=== PATIENT | male | born 1955 | race Caucasian/White ===

== ENCOUNTER 2020-01-20 08:51 | Inpatient (IN) | payer MEDICARE, OTHER, SELFPAY ==
[2020-01-20] VITALS (22 sets, daily range): BP systolic 101–182; BP diastolic 52–96; PULSE 53–96; RESP 18–36; TEMP 36.4–37.6; O2SAT 92–100; BMI 19.3
--- NOTE | 2020-01-20 09:00 | CTR_ITS ---
PROCEDURE INFORMATION: Exam: CT Head Without Contrast Exam date and time: 01/20/2020 9:03 AM Age: 64 years old Clinical indication: Altered mental status/memory loss; Additional info: Symptoms of acute stroke TECHNIQUE: Imaging protocol: Computed tomography of the head without contrast. Radiation optimization: All CT scans at this facility use at least one of these dose optimization techniques: automated exposure control; mA and/or kV adjustment per patient size (includes targeted exams where dose is matched to clinical indication); or iterative reconstruction. COMPARISON: No relevant prior studies available. RADIATION DOSE METRICS: Total DLP (mGy-cm): 2012.8 FINDINGS: Brain: Evaluation is limited by motion artifact. Multifocal small-vessel ischemic change including centrum semiovale, basal ganglia, and thalamic lacunar infarcts. Additional ischemic infarcts in the right occipital and posterior parietal lobes, which can be better characterized with MRI, if clinically indicated. Symmetric caliber of the cortical sulci. Ventricles: Normal configuration of the ventricles. Bones/joints: Old left lamina papyracea fracture. Sinuses: No sinus fluid. Mastoid air cells: No mastoid effusion. Soft tissues: Unremarkable soft tissues. CT/CT head wo con* [id number] IMPRESSION: 1. Evaluation is limited by motion artifact. 2. Multifocal small-vessel ischemic change including centrum semiovale, basal ganglia, and thalamic lacunar infarcts. Additional ischemic infarcts in the right occipital and posterior parietal lobes, which can be better characterized with MRI, if clinically indicated. The aforementioned findings initiated a critical results communication pathway. An addendum will be issued at the time of clincian notification. Radiation Dose CTDIVOL = (mGy): DLP = 2012.8 (mGy-cm)
--- NOTE | 2020-01-20 09:01 | ECG_ITS ---
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 Measurements Intervals [place] Rate: 90 P: 87 WV: 121 QRS: 89 QRSD: 98 T: 89 QT: 357 QTc: 438 Interpretive Statements SINUS RHYTHM POSSIBLE LEFT ATRIAL ENLARGEMENT [-0.1mV P WAVE IN V1/V2] INCOMPLETE RIGHT BUNDLE BRANCH BLOCK [90+ ms QRS DURATION, TERMINAL R IN V1/V2, 40+ ms S IN I/aVL/V4/V5/V6] SEPTAL MYOCARDIAL INFARCTION [40+ ms Q WAVE IN V1/V2], OF INDETERMINATE AGE No previous ECG available for comparison Electronically Signed On 01-20-2020 13:36:19 CDT by Tia Nation M.D. [id number]
--- NOTE | 2020-01-20 09:08 | W.ED.AMS ---
HPI - Altered Mental Status General: Chief Complaint: Altered Mental Status Stated Complaint: AMS Time Seen by Provider: 01/20/20 08:53 History of Present Illness: HPI narrative: Patient arrives via EMS for altered mental status and low O2 saturations. Patient brother states that he checks on the patient every evening and speaks to him every morning. He states that the patient was normal last evening but he did not answer the phone when he called him this morning. He went to the patient's house and found him only semi-responsive in the bed. Patient is awake and alert but does not appear to be oriented. MD complaint: altered mental status, confusion and intoxication (suspected) Timing confirmed by: family member Review of Systems General: Reports: ROS unobtainable due to mental status PFSH ED PFSH: Social History Smoking and tobacco status: current every day smoker Physical Exam Const: EXAM LIMITATIONS: altered mental status GENERAL APPEARANCE: in distress, ill appearing, frail appearing and appears older than stated age NUTRITIONAL APPEARANCE: thin ORIENTATION/CONSCIOUSNESS: Yes awake and Yes confused HENMT: COMMON NORMALS: normocephalic and atraumatic HEAD & SCALP: normal to inspection, normocephalic and atraumatic Eye: GENERAL EYE: appearance normal, both eyes and all related structures Neck/C-Spine: COMMON NORMALS: full ROM, no lymphadenopathy and no meningeal signs GENERAL: Yes normal visual inspection CERVICAL SPINE: Yes cervical ROM normal and Yes normal cervical lordosis Chest: COMMONS NORMALS: normal inspection of the chest and normal palpation of entire chest wall Resp: EFFORT & INSPECTION: Yes tachypneic, Yes respiratory distress, Yes grunting, Yes retractions, Yes uses accessory muscles and Yes audible wheezes AUSCULTATION: rhonchi and wheezes Cardio: COMMON NORMALS: regular rate, regular rhythm, S1 normal heart sound present and S2 normal heart sound present JUGULAR VENOUS DISTENTION: no JVD PALPATION: normal PMI RATE: regular rate RHYTHM: regular rhythm HEART SOUNDS: S1 normal heart sound present and S2 normal heart sound present GI: COMMON NORMALS: Soft to palpation and No hepatosplenomegaly present INSPECTION: Yes normal to inspection PALPATION: Yes Soft to palpation and Yes No hepatosplenomegaly present PERCUSSION: normal to percussion : COMMON NORMALS: Yes no CVA tenderness BLADDER/KIDNEY EXAM: Yes no CVA tenderness Back/Pelvis: COMMON NORMALS: no CVA tenderness, thoracic and lumbar spine normal to inspection and thoraco-lumbar ROM normal Extremity: COMMON NORMALS: normal to inspection, full ROM and capillary refill normal Neuro: MENINGEAL SIGNS: Yes no meningeal signs Skin: COMMON NORMALS: no rashes or lesions noted, no wounds and turgor normal GENERAL SKIN EXAM: no rashes or lesions noted, elasticity normal and turgor normal LESIONS: no lesions RASHES: no rashes TRAUMA: no lacerations or abrasions HAIR: normal NAILS: normal Course Vital Signs: Vital signs: Vital Signs Temperature 97.9 F 01/20/20 08:51 Pulse Rate 96 01/20/20 08:51 Respiratory Rate 36 H 01/20/20 08:51 Blood Pressure 182/96 01/20/20 08:51 Pulse Oximetry 92 01/20/20 08:51 MDM - Altered Mental Status Lab Data: Labs: Lab Results 01/20/20 01/20/20 01/20/20 Range/Units 09:28 09:28 09:28 WBC 8.8 (4.0-10.0) 10^3/ uL RBC 4.87 (4.1-5.3) 10^6/u L Hgb 14.0 (11.7-16.6) g/dL Hct 48.0 (42.0-52.0) % MCV 98.6 H (80-94) fL MCH 28.7 (28.0-34.0) pg MCHC 29.2 L (30.0-36.0) g/dL RDW 14.9 (12.1-15.1) % Plt Count 167 (130-400) 10^3/c mm MPV 10.1 (7.4-10.4) fL Neut % (Auto) 82.5 % Lymph % (Auto) 7.7 % Hudspeth % (Auto) 9.1 % Eos % (Auto) 0.0 % Baso % (Auto) 0.2 % Neut # (Auto) 7.2 (1.8-7.7) 10^3/u L Lymph # (Auto) 0.7 L (0.8-4.8) 10^3/u L Hudspeth # (Auto) 0.8 (0.2-0.9) 10^3/u L Eos # (Auto) 0.0 (0.0-0.8) 10^3/u L Baso # (Auto) 0.0 (0.0-0.1) 10^3/u L Nucleated RBC % (a uto) 0 % Nucleated RBCs # 0.0 /100WBC PT 14.90 H (10.5-13.3) SECO NDS INR 1.13 (0.8-1.2) APTT 31.2 (23.9-36.7) SECO NDS Sodium 138 (136-145) mmol/L Potassium 5.9 H (3.5-5.1) mmol/L Chloride 92 L (98-107) mmol/L Carbon Dioxide 34 H (22-29) mmol/L Anion Gap 17.9 (5-19) BUN 28 H (8-23) mg/dL Creatinine 1.3 H (0.7-1.2) mg/dL GFR Calculation 55.2 L (90-130) mL/min Glucose 125 H (65-115) mg/dL Calculated Osmolal ity 284 L (285-295) mOsm/k g Calcium 9.4 (8.5-10.5) mg/dL Total Bilirubin 1.3 H (0.15-1.2) mg/dL AST 140 H (0-40) U/L ALT 92 H (0-41) U/L Alkaline Phosphata se 73 (40-130) IU/L Ammonia (16-60) umol/L Troponin T Baselin e (0-15) ng/L Total Protein 7.3 (6.6-8.7) g/dL Albumin 4.2 (3.5-5.2) g/dL Globulin 3.1 (1.3-4.6) g/dL Urine Color (Yellow) Urine Appearance (CLEAR) Urine pH (5-7) Ur Specific Gravit y (1.005-1.030) Urine Protein (Negative) Urine Glucose (UA) (Normal) Urine Ketones (Negative) Urine Blood (Negative) Urine Nitrate (Negative) Urine Bilirubin (NEGATIVE) Urine Urobilinogen (Negative) mg/dL Ur Leukocyte Ernestina ase (Negative) Urine RBC (0-2) /hpf Urine WBC (0-5) /hpf Ur Squamous Epith Cells (0-5) Amorphous Sediment Urine Bacteria (NONE) Urine Mucus Salicylates < 0.3 L (3-10) mg/dL Acetaminophen < 5.0 L (10-30) ug/mL Ethyl Alcohol < 10 (0-10) mg/dL 01/20/20 01/20/20 01/20/20 Range/Units 09:28 09:28 10:00 WBC (4.0-10.0) 10^3/ uL RBC (4.1-5.3) 10^6/u L Hgb (11.7-16.6) g/dL Hct (42.0-52.0) % MCV (80-94) fL MCH (28.0-34.0) pg MCHC (30.0-36.0) g/dL RDW (12.1-15.1) % Plt Count (130-400) 10^3/c mm MPV (7.4-10.4) fL Neut % (Auto) % Lymph % (Auto) % Hudspeth % (Auto) % Eos % (Auto) % Baso % (Auto) % Neut # (Auto) (1.8-7.7) 10^3/u L Lymph # (Auto) (0.8-4.8) 10^3/u L Hudspeth # (Auto) (0.2-0.9) 10^3/u L Eos # (Auto) (0.0-0.8) 10^3/u L Baso # (Auto) (0.0-0.1) 10^3/u L Nucleated RBC % (a uto) % Nucleated RBCs # /100WBC PT (10.5-13.3) SECO NDS INR (0.8-1.2) APTT (23.9-36.7) SECO NDS Sodium (136-145) mmol/L Potassium (3.5-5.1) mmol/L Chloride (98-107) mmol/L Carbon Dioxide (22-29) mmol/L Anion Gap (5-19) BUN (8-23) mg/dL Creatinine (0.7-1.2) mg/dL GFR Calculation (90-130) mL/min Glucose (65-115) mg/dL Calculated Osmolal ity (285-295) mOsm/k g Calcium (8.5-10.5) mg/dL Total Bilirubin (0.15-1.2) mg/dL AST (0-40) U/L ALT (0-41) U/L Alkaline Phosphata se (40-130) IU/L Ammonia 15 L (16-60) umol/L Troponin T Baselin e 64 H (0-15) ng/L Total Protein (6.6-8.7) g/dL Albumin (3.5-5.2) g/dL Globulin (1.3-4.6) g/dL Urine Color Dark yellow (Yellow) Urine Appearance Clear (CLEAR) Urine pH 5 (5-7) Ur Specific Gravit y 1.030 (1.005-1.030) Urine Protein 1+ H (Negative) Urine Glucose (UA) Norm (Normal) Urine Ketones Negative (Negative) Urine Blood Neg (Negative) Urine Nitrate Negative (Negative) Urine Bilirubin 1+ H (NEGATIVE) Urine Urobilinogen 4 H (Negative) mg/dL Ur Leukocyte Ernestina ase Negative (Negative) Urine RBC None (0-2) /hpf Urine WBC None (0-5) /hpf Ur Squamous Epith Cells None (0-5) Amorphous Sediment 1+ Urine Bacteria 1+ H (NONE) Urine Mucus Trace Salicylates (3-10) mg/dL Acetaminophen (10-30) ug/mL Ethyl Alcohol (0-10) mg/dL Discharge Plan Discharge Prescriptions: No Action No Known Home Medications RF: 0 Coding Level of Care Code ED System Configuration Specialist for Chg Fwd Exam Comprehensive
[2020-01-20] MEDS: folic acid 1 MG, multivitamin inj 10 ML, thiamine 100 MG in sodium chloride 0.9% 1,000 ML 252.8 MG IV (09:25)
[2020-01-20 09:37] LABS: Basophils % 0.2 %; Lymphocytes # 0.7 10^3/uL (0.8-4.8); Lymphocytes % 7.7 %; Mean Corpuscular HGB Conc 29.2 g/dL (30.0-36.0); Mean Corpuscular Hemoglobin 28.7 pg (28.0-34.0); Mean Corpuscular Volume 98.6 fL (80-94); Mean Platelet Volume 10.1 fL (7.4-10.4); Monocytes # 0.8 10^3/uL (0.2-0.9); Monocytes % 9.1 %; Neutrophils # 7.2 10^3/uL (1.8-7.7); Neutrophils % 82.5 %; Nucleated Red Blood Cells % 0 %; Platelet Count 167 10^3/cmm (130-400); Red Blood Count 4.87 10^6/uL (4.1-5.3); Red Cell Distribution Width 14.9 % (12.1-15.1); White Blood Count 8.8 10^3/uL (4.0-10.0)
[2020-01-20 09:47] LABS: INR 1.13 (0.8-1.2)
[2020-01-20 09:48] LABS: Partial Thromboplastin Time 31.2 SECONDS (23.9-36.7)
[2020-01-20 09:55] LABS: Ammonia 15 umol/L (16-60)
[2020-01-20 09:56] LABS: Acetaminophen < 5.0 ug/mL (10-30); Alanine Aminotransferase 92 U/L (0-41); Albumin Level 4.2 g/dL (3.5-5.2); Alcohol Level < 10 mg/dL (0-10); Alkaline Phosphatase 73 IU/L (40-130); Anion Gap 17.9 (5-19); Aspartate Amino Transferase 140 U/L (0-40); Blood Urea Nitrogen 28 mg/dL (8-23); Calcium 9.4 mg/dL (8.5-10.5); Carbon Dioxide 34 mmol/L (22-29); Chloride 92 mmol/L (98-107); Globulin 3.1 g/dL (1.3-4.6); Glomerular Filtration Rate 55.2 mL/min (90-130); Glucose 125 mg/dL (65-115); Osmolality Calculated 284 mOsm/kg (285-295); Potassium 5.9 mmol/L (3.5-5.1); Salicylate < 0.3 mg/dL (3-10); Sodium 138 mmol/L (136-145); Total Bilirubin 1.3 mg/dL (0.15-1.2); Total Protein 7.3 g/dL (6.6-8.7)
[2020-01-20 09:57] LABS: Troponin(5th) Baseline 64 ng/L (0-15)
[2020-01-20 10:38] LABS: Protein Urine 1+ (Negative); Urine Appearance Clear (CLEAR); Urine Color Dark Yellow (Yellow); pH Urine 5 (5-7)
[2020-01-20 10:39] LABS: Add Urine Microscopic? YES; Bilirubin Urine 1+ (NEGATIVE); Blood Urine Neg (Negative); Glucose Urine UA Norm (Normal); Ketones Urine Negative (Negative); Leukocyte Esterase Urine Negative (Negative); Nitrate Urine Negative (Negative); Urobilinogen Urine 4 mg/dL (Negative)
[2020-01-20 10:43] LABS: Amorphous Sediment Urine 1+; Bacteria Urine 1+; Mucus Urine TRACE
--- NOTE | 2020-01-20 10:52 | PC.NURSE ---
patient was intubated [id number] with 100 succs and 20 of etomidate and 10 of vecronium 23 at the lip 8 [place] tube, patient tolerated well
[2020-01-20] MEDS: succinylcholine 20 mg/mL SDV 10mL 100 MG IVP (10:53)
[2020-01-20] MEDS: vecuronium 10 mg SDV IVP (11:00)
--- NOTE | 2020-01-20 11:01 | ECG_ITS ---
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 Measurements Intervals [place] Rate: 74 P: 87 [place]: 114 QRS: 71 QRSD: 94 T: 87 QT: 388 QTc: 432 Interpretive Statements SINUS RHYTHM WITH SHORT OH INTERVAL POSSIBLE LEFT ATRIAL ENLARGEMENT [-0.1mV P WAVE IN V1/V2] INDETERMINATE AXIS SEPTAL MYOCARDIAL INFARCTION [40+ ms Q WAVE IN V1/V2], OF INDETERMINATE AGE Compared to ECG 01/20/2020 09:49:53 Short OH interval now present Indeterminate axis now present Incomplete right bundle-branch block no longer present Myocardial infarct finding still present Electronically Signed On 01-20-2020 13:43:40 CDT by Tia Nation M.D. [id number]
[2020-01-20 11:03] LABS: ABG PH Result 7.24 (7.35-7.45); Arterial Blood Gas Hematocrit 42.6 % (42-52); Base Excess ABG 5.3 mmol/L (-2.0-2.0); Blood Gas Allen Test Pos; Blood Gas Sample Site Brachial, right; Blood Gas Sample Type Arterial; HCO3 ABG 35.8 mmol/L (22-26); Oxygen Device ROOM AIR; PO2 ABG 24.1 mmHg (80.0-100.0)
[2020-01-20] MEDS: sodium chloride 0.9% 500 ML 999 ML IV (11:15)
[2020-01-20 11:26] LABS: Amphetamines Screen Urine Negative (Negative); Barbiturates Screen Urine Negative (Negative); Benzodiazepines Screen Urine Negative (Negative); Cocaine Screen Urine Negative (Negative); Opiate Screen Urine Negative (Negative); PCP Screen Urine Negative (Negative); THC Screen Urine Negative (Negative)
[2020-01-20 11:28] LABS: Troponin 5 2HR 58.46 ng/L (0-15)
--- NOTE | 2020-01-20 11:33 | PM.HP ---
Providers/Chief Complaint Admitting Physician: Telma Mccord MD Primary Care Provider: Adalid Frost DO Chief Complaint: AMS History of Present Illness Nasir Lepe is a 64 year old male with PMHx of COPD, Chronic smoker; presents by ambulance accompanied by brother for evaluation of noted decreased responsiveness since earlier this morning. Patient is currently intubated so unable to provide history. This is obtained from brother at bedside who states that he speaks with the brother every day, at least twice a day. When he called the patient this morning he received no response so went out to the house to check on him. He found the patient in bed, was very difficult to arouse and when he did awaken he acted quite confused and disoriented. Patient was diaphoretic at the time but no noted secretions or incontinence. Brother then called for an ambulance and at this point in time patient seems to be more awake and seemed to be more alert as well as he try to decline medical attention and reportedly mentioned wanting to drink. Per his brother patient has been abstinent for about 3 years but was a former alcoholic, drinking large amounts of vodka. Patient has not seen a physician in approximately 30 years and is not on any regular medication. He smokes 2 packs/day and keeps to himself for the most part. He is not oxygen dependent and never has been. Has never been to the hospital for COPD related illness, not required intubation in the past or ICU admission. Prior to this morning patient's brother had spoken with him over the phone yesterday and they had dinner together last week Tuesday during which time patient was noted to be fairly unsteady on his feet and actually had a fall when his legs buckled under him. He seemed a little confused yesterday on the phone during the conversation but not overtly so to the point where brother was concerned about him. Reportedly patient was conversant on arrival to the ER though not making much sense and with ABG results showing significant hypercapnia and significant hypoxia decision was made to intubate the patient. He received a paralytic so is currently sedated. He is quite hypertensive with blood pressure being 220/100, he saturating at 100% on an FiO2 of 60%, is afebrile with heart rate being in the sinus rhythm in the 90s. Labs indicate normal CBC with a white count of 8.8, hemoglobin of 14.0, hyperkalemia with a potassium of 5.9, chloride of 92, bicarb of 32, BUN of 28, creatinine of 1.3, blood glucose of 125. ABG is 7.24/80.3/24.1. LFTs are elevated with a T bili of 1.3, AST of 140, ALT of 92, ALP of 73. Ammonia is 15, troponins are noted with a delta of -5, urine drug screen, acetaminophen, salicylates, alcohol are all negative. CT head shows multifocal small vessel ischemic changes involving centrum semiovale, basal ganglia and thalamic lacunar infarcts in addition to ischemic infarcts in the right occipital and posterior parietal lobes. I have requested COVID-19 testing due to patient's respiratory issues. He will require chest x-ray which has not been done yet as well as CT of the abdomen and pelvis given acute renal failure and elevated LFTs. Patient will be admitted to ICU for further management of acute hypoxic and hypercapnic respiratory failure requiring ventilator management. I suspect the patient may have had a stroke which then led to hypoxia and decreased responsiveness. Review of Systems General: Reports: ROS unobtainable due to endotracheal tube (obtained from brother at bedside) and Other Neuro: Reports: difficulty walking, confusion (Intermittent) and other (Fall approximately 1 week ago) Medications/Allergies Home Medications Medication Instructions Recorded Confirmed Last Taken Type No Known Home Medications 01/20/20 01/20/20 Unknown History Allergies Allergy/AdvReac Type Severity Reaction Status Date / Time No Known Allergies Allergy Verified 01/20/20 09:41 PFSH Acute PFSH: Medical History Alcohol abuse Chronic back pain COPD (chronic obstructive pulmonary disease) Smoker Surgical History (Updated 01/20/20 @ 11:59 by Telma Mccord MD) History of back surgery Family History (Updated 01/20/20 @ 12:00 by Telma Mccord MD) Sister Diabetes Denies family history of CAD (coronary artery disease) Cancer Social History (Updated 01/20/20 @ 12:00 by Telma Mccord MD) Smoking and tobacco status: current every day smoker cigarettes Packs smoked per day: 2 Years cigarettes smoked: 30 Alcohol intake: former Former alcohol use details: abstinent x 3 yrs Substance/Drug Use: never Lives independently: Yes Housing: House Marital status: Single Vitals/I&O/Wt Last Vital Signs Temp 97.9 F 01/20/20 08:51 Pulse 96 01/20/20 08:51 Resp 36 H 01/20/20 08:51 BP 182/96 01/20/20 08:51 Pulse Ox 92 01/20/20 08:51 Weight last 48 hrs Weight 54.431 kg Physical Exam Const: COMMON NORMALS: no acute distress GENERAL APPEARANCE: patient mechanically ventilated NUTRITIONAL APPEARANCE: thin ORIENTATION/CONSCIOUSNESS: Yes Other orientation findings (sedated) HENMT: COMMON NORMALS: normocephalic and atraumatic HEAD & SCALP: normocephalic and atraumatic OTHER: -ETT: 23 cm @ lip Eye: COMMON NORMALS: conjunctivae normal CONJUNCTIVA: Yes conjunctivae normal PUPIL: Yes Pinpoint pupils bilaterally Neck/C-Spine: COMMON NORMALS: full ROM GENERAL: Yes normal visual inspection and Yes trachea midline OTHER: -L IV Chest: CHEST: Yes Symmetrical chest wall rise Resp: COMMON NORMALS: No retractions and No use of accessory muscles EFFORT & INSPECTION: Yes symmetric chest movement and No tachypneic AUSCULTATION: diminished lung sounds bilateral OTHER: -coarse breath sounds bilaterally, on vent support (60%/PEEP-8) Cardio: COMMON NORMALS: regular rate, regular rhythm, S1 normal heart sound present, S2 normal heart sound present and No murmurs present (Cardio) RATE: regular rate RHYTHM: regular rhythm HEART SOUNDS: S1 normal heart sound present and S2 normal heart sound present OTHER: -hypertensive GI: INSPECTION: Yes scaphoid AUSCULTATION: Yes normoactive bowel sounds PALPATION: Yes Soft to palpation : BLADDER/KIDNEY EXAM: Yes catheter in place Catheter type (Male): urethral Extremity: COMMON NORMALS: normal to inspection, no clubbing, cyanosis or edema and no pedal edema Neuro: OTHER: -sedated Psych: OTHER: -sedated Skin: COMMON NORMALS: no rashes or lesions noted, no jaundice, no petechiae and no mottling GENERAL SKIN EXAM: no rashes or lesions noted Urinary Catheter Management^: Smith: Cath Placed During This Visit: yes Urethral Indwelling: Yes Reason for Continuing Indwelling Catheter: Accurate Measurement of Urinary Output in Critically Ill Patients Urinary Catheter Date of Insertion: 01/20/20 Urinary Catheter Time of Insertion: 10:58 Sepsis: Is patient septic: No Data : 01/20/20 09:28 01/20/20 09:28 Other Labs: -labs reviewed including CBC, CMP A&P Assessment and plan (1) Acute respiratory failure with hypoxia and hypercapnia: -noted significant hypercapnia and hypoxia on initial ABG, was reportedly conversant on arrival though altered so intubated in ED -received paralytic so no sedation currently -is a chronic smoker, has had emphysema for many years per brother at bedside -ABG (); ETT-23 cm @ lip -daily ABG, CXR while on vent -CXR pending -will start on broad spectrum IV antibiotics (Vanc/Zosyn/Levaquin) -order sputum cx, blood cx -due to symptoms will test for COVID-19; isolation precautions -check bacterial antigens, MRSA, influenza screen Status: Acute (2) Decreased responsiveness: -has had some generalized weakness, some noted confusion per family. Noted multifocal small vessel ischemic changes involving centrum semiovale, basal ganglia and thalamic lacunar infarcts as well as right occipital and posterior parietal lobes -Unable to assess neurological status due to current sedation -Unable to obtain MRI at this time as on vent support -Noted hypertensive urgency -Negative alcohol screen, UDS negative, negative salicylates, acetaminophen Status: Acute (3) Acute kidney failure: -No baseline -Monitor renal function closely, avoid nephrotoxins, renally dose meds -Has Smith catheter in place, monitor urine output, assess daily for removal Status: Acute Qualifiers: Acute renal failure type: unspecified Qualified Code(s): N17.9 - Acute kidney failure, unspecified (4) Hypertensive urgency: -No prior reported history of hypertension; this could be due to acute illness and possibly due to stroke as mentioned above -Close monitoring of vital signs; permissive hypertension x24 hours Status: Acute (5) Smoker: -2 PPD x > 30 yrs Status: Chronic (6) COPD (chronic obstructive pulmonary disease): -acute COPD exacerbation; now on vent support -add steroids to empiric antibiotics -close monitoring of respiratory status Status: Acute Qualifiers: COPD type: COPD with acute exacerbation Qualified Code(s): J44.1 - Chronic obstructive pulmonary disease with (acute) exacerbation (7) Elevated LFTs: -Has reported history of chronic alcohol abuse, reportedly has been abstinent x 3 years, negative alcohol screen, negative urine drug screen -No apparent ascites on examination, will order CT abdomen and pelvis for further evaluation -Trend LFTs, order acute hepatitis panel Status: Acute (8) Chronic back pain: Status: Chronic Qualifiers: Back pain location: low back pain Back pain laterality: unspecified Sciatica presence: unspecified whether sciatica present Qualified Code(s): M54.5 - Low back pain; G89.29 - Other chronic pain Additional A&P Information -at least moderate protein calorie malnutrition: BMI-19 kg/m2 -Chronic EtOH abuse; negative alcohol screen, questionable if recent use though per brother patient has been abstinent x 3 yrs. Banana bag currently been given in ED -GI ppx with PPI -DVT ppx with heparin -Dispo: home -Code status: FULL code -ICU admission due to vent support, need for COVID-19 testing Attestations Medical Necessity Statement*: [facility]'s hospital stay will require greater than 2 midnights for management of acute hypoxic and hypercapnic respiratory failure now on vent support, needs close monitoring of hemodynamic and respiratory status, IV steroids, broad-spectrum IV antibiotics. Time Spent in Patient Care: Greater than 35 minutes (>than 50% of time spent in counselling and/or direct pt care on unit). Critical Care Time: The high probability of a clinically significant, sudden or life threatening deterioration of the patient's [cardiovascular, respiratory] system(s) required my full and direct attention, intervention and personal management. The critical care time is as shown. This time is in addition to time spent performing any reported procedures but includes the following: [x] Data and vital sign review and interpretation [x] Patient assessment, examination and intervention [x] Documentation [x] Medication orders and management Critical Care Time (min): 25 Coding Level of Care Code Acute Associate Vice President for g Fwd Diagnoses Acute respiratory failure with hypoxia and hypercapnia J96.01; J96.02 Decreased responsiveness R41.89 Acute kidney failure N17.9 Acute renal failure type: unspecified Hypertensive urgency I16.0 Smoker F17.200 COPD (chronic obstructive pulmonary disease) J44.1 COPD type: COPD with acute exacerbation Elevated LFTs R79.89 Chronic back pain M54.5; G89.29 Back pain location: low back pain Back pain laterality: unspecified Sciatica presence: unspecified whether sciatica present
[2020-01-20 11:34] LABS: Troponin 5 2HR Delta -5.54 ABS# (0-10)
[2020-01-20] MEDS: levofloxacin-dextrose 5 % 750 MG/150 ML PREMIX 100 MG IV (11:34)
--- NOTE | 2020-01-20 11:45 | XRR_ITS ---
PROCEDURE INFORMATION: Exam: XR Chest, 1 View Exam date and time: 01/20/2020 11:45 AM Age: 64 years old Clinical indication: Device placement; Ett placement (vent status); Additional info: On vent support TECHNIQUE: Imaging protocol: XR of the chest Views: 1 view. COMPARISON: No relevant prior studies available. FINDINGS: Tubes, catheters and devices: Endotracheal and feeding tubes. The endotracheal tube terminates 6.0 cm above the alvaro, while the feeding tube terminates in the proximal stomach. Lungs: COPD and chronic granulomatous disease. Pleural space: Pleural thickening, calcified plaques, and blunting of the costophrenic angles. Heart/Mediastinum: Normal configuration of the heart. Vasculature: Calcification of the thoracic aorta. Bones/joints: Degenerative change. XR/XR chest 1V portable [id number] IMPRESSION: 1. COPD and chronic granulomatous disease. 2. Endotracheal and feeding tubes. The endotracheal tube terminates 6.0 cm above the alvaro, while the feeding tube terminates in the proximal stomach. 3. Additional findings as described above.
--- NOTE | 2020-01-20 11:52 | CTR_ITS ---
PROCEDURE INFORMATION: Exam: CT Abdomen And Pelvis Without Contrast Exam date and time: 01/20/2020 12:44 PM Age: 64 years old Clinical indication: Abdominal pain; Additional info: Unresponsive, hepatitis, acute renal failure TECHNIQUE: Imaging protocol: Computed tomography of the abdomen and pelvis without contrast. Radiation optimization: All CT scans at this facility use at least one of these dose optimization techniques: automated exposure control; mA and/or kV adjustment per patient size (includes targeted exams where dose is matched to clinical indication); or iterative reconstruction. COMPARISON: No relevant prior studies available. RADIATION DOSE METRICS: Total DLP (mGy-cm): 395.51 FINDINGS: Detailed evaluation of the abdominal and pelvic viscera is somewhat limited in the absence of intravenous contrast. Tubes, catheters and devices: Termination of feeding tube in the proximal stomach. Lungs: COPD, interstitial disease, and chronic granulomatous disease. Bronchial wall thickening. Pleural calcification, suggesting prior asbestos exposure. Liver: Abnormal morphology of the liver, in a pattern suggesting cirrhosis. Detailed evaluation of hepatic parenchymal pathology is limited in the absence of intravenous contrast. Calcified granulomata. Gallbladder and bile ducts: No cholelithiasis or biliary ductal dilatation. Pancreas: No pancreatic mass or ductal dilatation. Spleen: Splenic granulomata. Adrenals: Unremarkable adrenals. Kidneys and ureters: Poorly characterized 8 mm nodular hypodensity in the posterior right kidney. No hydronephrosis. Stomach and bowel: Questionable wall thickening in the nondistended stomach. Prominent stool in the colon and rectum. The dilated stool-filled rectum measures 7.1 cm in transverse dimension. Diverticula. Appendix: Appendix not visualized. Intraperitoneal space: Small quantity of dependent free fluid in the pelvis. Vasculature: Extensive vascular calcification . 2.7 cm infrarenal abdominal aortic aneurysm. Lymph nodes: Subcentimeter lymph nodes. Bladder: Smith catheter and intraluminal air in the bladder. Reproductive: Punctate prostate calcifications. Bones/joints: Osteopenia. Degenerative change and disc bulging. Schmorl's nodes. CT/CT abdomen pelvis wo con [id number] IMPRESSION: 1. Abnormal hepatic morphology, suggesting cirrhosis. 2. Small quantity of dependent free fluid in the pelvis. 3. Prominent stool in the colon and dilated rectum. 4. Additional findings as described above. Radiation Dose CTDIVOL = (mGy): DLP = 395.51 (mGy-cm)
[2020-01-20] MEDS: hyDRALAzine 20 mg/mL INJ 1 mL IVP (11:54)
--- NOTE | 2020-01-20 12:00 | PC.NURSE ---
attempted to call icu
[2020-01-20 12:40] LABS: Hepatitis A Antibody IgM Non-Reactive (Nonreactive); Hepatitis B Core IgM Non-Reactive (Nonreactive); Hepatitis B Surface Antigen Non-Reactive (Nonreactive); Hepatitis C Virus Antibody Non-Reactive (Nonreactive)
[2020-01-20 12:46] LABS: Magnesium 2.2 mg/dL (1.7-2.3)
[2020-01-20 13:25] LABS: Add Urine Culture? No
[2020-01-20 13:47] LABS: ABG PCO2 45.2 mmHg (35-45); ABG PH Result 7.44 (7.35-7.45); Arterial Blood Gas Hematocrit 40.6 % (42-52); Base Excess ABG 5.8 mmol/L (-2.0-2.0); Blood Gas Allen Test Pos; Blood Gas Sample Site Radial, right; Blood Gas Sample Type Arterial; HCO3 ABG 30.8 mmol/L (22-26)
[2020-01-20] MEDS: propofol 1,000 MG/100 ML INJ 10.4 MG (14:25)
[2020-01-20] MEDS: vancomycin 750 MG in sodium chloride 0.9% 250 ML 250 MG IV (14:42)
[2020-01-20] MEDS: pantoprazole 40 mg SDV IVP (14:43)
[2020-01-20] MEDS: heparin 5,000 unit/mL INJ 1 mL 5000 UNIT SUBCUT (14:44)
[2020-01-20 15:03] LABS: Influenza A by IFA Negative (Negative); Influenza B by IFA Negative (Negative)
[2020-01-20] MEDS: sodium chloride 0.9% (100 ml) 100 ML 10 ML (15:23)
[2020-01-20] MEDS: sodium chloride 0.9% 1,000 ML 75 ML IV (16:38)
[2020-01-20 16:45] LABS: Troponin 5 6HR 67.52 ng/L (0-15); Troponin 5 6HR Delta 3.52 ng/L (0-12)
[2020-01-20] MEDS: piperacillin-tazobactam 3.375 GM in sodium chloride 0.9% (plus) 50 ML IV ×2 (16:46→23:48)
--- NOTE | 2020-01-20 20:46 | PC.NURSE ---
Dr Chung notified of elevated BP. He states he will enter prn orders.
[2020-01-20] MEDS: propofol 1,000 MG/100 ML INJ 9.8 MG IV (23:48)
[2020-01-21] VITALS (80 sets, daily range): BP systolic 103–177; BP diastolic 57–116; PULSE 47–108; RESP 8–33; TEMP 36.3–37.2; O2SAT 74–100; BMI 17.8
[2020-01-21] MEDS: vancomycin 750 MG in sodium chloride 0.9% 250 ML 250 MG IV ×2 (02:05→14:43)
[2020-01-21] MEDS: heparin 5,000 unit/mL INJ 1 mL 5000 UNIT SUBCUT ×2 (02:05→13:53)
[2020-01-21] MEDS: propofol 1,000 MG/100 ML INJ 9.8 MG IV ×2 (04:06→09:39)
[2020-01-21 04:08] LABS: Hematocrit 40.5 % (42.0-52.0); Hemoglobin 12.5 g/dL (11.7-16.6); Lymphocytes # 0.7 10^3/uL (0.8-4.8); Lymphocytes % 10.2 %; Mean Corpuscular HGB Conc 30.9 g/dL (30.0-36.0); Mean Corpuscular Hemoglobin 28.6 pg (28.0-34.0); Mean Corpuscular Volume 92.7 fL (80-94); Mean Platelet Volume 10.9 fL (7.4-10.4); Monocytes # 0.4 10^3/uL (0.2-0.9); Monocytes % 5.9 %; Neutrophils # 5.9 10^3/uL (1.8-7.7); Neutrophils % 83.6 %; Nucleated Red Blood Cells % 0 %; Platelet Count 133 10^3/cmm (130-400); Red Blood Count 4.37 10^6/uL (4.1-5.3); White Blood Count 7.1 10^3/uL (4.0-10.0)
[2020-01-21 04:25] LABS: Chol HDL Ratio 4.28 mg/dL (1.0-5.00); Cholesterol 107 mg/dL (0-200); HDL Cholesterol 25 mg/dL (60-100); LDL Cholesterol Calculated 56 mg/dL (50-129); LDL HDL Ratio 2.24 RATIO (0.00-3.22); Triglycerides 129 mg/dL (0-150)
[2020-01-21 04:31] LABS: ABG PCO2 28.9 mmHg (35-45); Arterial Blood Gas Hematocrit 39.3 % (42-52); Blood Gas Sample Site Brachial, right; Blood Gas Sample Type Arterial; HCO3 ABG 27.3 mmol/L (22-26); Oxygen Device VENT
[2020-01-21 04:31] LABS: Alanine Aminotransferase 203 U/L (0-41); Alkaline Phosphatase 53 IU/L (40-130); Aspartate Amino Transferase 243 U/L (0-40); Blood Urea Nitrogen 28 mg/dL (8-23); Calcium 8.2 mg/dL (8.5-10.5); Carbon Dioxide 25 mmol/L (22-29); Chloride 104 mmol/L (98-107); Globulin 2.3 g/dL (1.3-4.6); Glucose 122 mg/dL (65-115); Osmolality Calculated 292 mOsm/kg (285-295); Sodium 142 mmol/L (136-145); Thyroid Stimulating Hormone 0.61 uIU/mL (0.27-4.20); Total Bilirubin 0.8 mg/dL (0.15-1.2); Total Protein 5.3 g/dL (6.6-8.7)
[2020-01-21 04:55] LABS: Estmated Average Glucose 105; Hemoglobin A1C 5.3 % (4.0-6.0)
[2020-01-21] MEDS: sodium chloride 0.9% 1,000 ML 75 ML IV ×2 (05:19→19:08)
[2020-01-21] MEDS: piperacillin-tazobactam 3.375 GM in sodium chloride 0.9% (plus) 50 ML IV ×2 (07:42→18:54)
[2020-01-21] MEDS: pantoprazole 40 mg SDV IVP (09:39)
--- NOTE | 2020-01-21 09:56 | P.PN_ITS ---
Subjective Subjective: Interval history: Remains on vent support though decreased oxygen requirement (FiO2-30%), afebrile, intermittently bradycardic, improved renal function, noted transaminitis with otherwise normal labs including lipid panel, TSH, A1c. Had 600 mL urine output overnight. COVID-19 negative, will d/c isolation precautions. Weaning trial today. On sedation with propofol. Medications: Reviewed: Yes Medication Review Details: Active Medications Generic Name Dose Route Start Last Admin Trade Name Freq PRN Reason Stop Dose Admin Acetaminophen 650 mg 01/20/20 13:35 Tylenol [place] Q6H PRN FEVER Heparin Sodium (Be ef Lung) 5,000 unit 01/20/20 14:00 01/21/20 02:05 Heparin SUBCUT 5,000 unit Q12H JOSELINE Administration Hydralazine HCl 5 mg 01/20/20 20:47 Apresoline IVP Q4H PRN HYPERTENSION Vancomycin HCl 750 mg/ Sodium 250 mls @ 250 mls /hr 01/20/20 14:30 01/21/20 02:05 Chloride IV 250 mls/hr Q12H JOSELINE Administration Protocol Piperacillin Sod/T azobactam 50 mls @ 12.5 mls /hr 01/20/20 16:00 01/21/20 07:42 Sod 3.375 gm/ So dium Chloride IV 12.5 mls/hr Q8H JOSELINE Administration Protocol Levofloxacin/Dextr ose 750 mg in 150 mls @ 100 mls/hr 01/21/20 12:00 Levaquin-D5w IV Q24H JOSELINE Protocol Propofol 1,000 mg in 100 m ls @ 0 mls/hr 01/20/20 13:35 01/21/20 09:39 Diprivan IV 30 mcg/kg/min .Q0M JOSELINE 9.8 mls/hr Administration Protocol Per Protocol Sodium Chloride 1,000 mls @ 75 ml s/hr 01/20/20 15:30 01/21/20 05:19 Sodium Chloride 0.9% IV 75 mls/hr .[id number] JOSELINE Administration Ondansetron HCl 4 mg 01/20/20 13:35 Zofran IVP Q6H PRN NAUSEA AND VOMITI NG Pantoprazole Sodiu m 40 mg 01/20/20 13:35 01/21/20 09:39 Protonix IVP 40 mg DAILY JOSELINE Administration No Known Allergies Allergy (Verified 01/20/20 09:41) Vitals/I&O/Wt Last Vital Signs Temp 97.5 F L 01/21/20 08:00 Pulse 55 L 01/21/20 08:00 Resp 12 01/21/20 09:31 BP 129/62 01/21/20 08:00 Pulse Ox 94 01/21/20 08:00 01/20/20 01/21/20 01/21/20 22:59 06:59 14:59 Intake Total 300 / 300 1043.39 / 1343.39 54.39 / 54.39 Output Total 600 / 610 Balance 290 / 290 443.39 / 733.39 54.39 / 54.39 Weight last 48 hrs Weight 49.079 kg Weight 54.431 kg Physical Exam Const: COMMON NORMALS: no acute distress GENERAL APPEARANCE: patient mechanically ventilated NUTRITIONAL APPEARANCE: thin ORIENTATION/CONSCIOUSNESS: Yes Other orientation findings (sedated) HENMT: COMMON NORMALS: normocephalic and atraumatic HEAD & SCALP: normocephalic and atraumatic OTHER: -ETT: 25 cm @ lip Eye: COMMON NORMALS: conjunctivae normal CONJUNCTIVA: Yes conjunctivae normal PUPIL: Yes Pinpoint pupils bilaterally Neck/C-Spine: COMMON NORMALS: full ROM GENERAL: Yes normal visual inspection and Yes trachea midline OTHER: -L IV Chest: CHEST: Yes Symmetrical chest wall rise Resp: COMMON NORMALS: No retractions and No use of accessory muscles EFFORT & INSPECTION: Yes symmetric chest movement and No tachypneic AUSCULTATION: diminished lung sounds bilateral OTHER: -coarse breath sounds bilaterally, on vent support (30%/16/5) Cardio: COMMON NORMALS: regular rate, regular rhythm, S1 normal heart sound present, S2 normal heart sound present and No murmurs present (Cardio) RATE: regular rate RHYTHM: regular rhythm HEART SOUNDS: S1 normal heart sound present and S2 normal heart sound present OTHER: -normotensive GI: COMMON NORMALS: Normal to inspection, nondistended, normoactive bowel sounds present and Soft to palpation INSPECTION: Yes scaphoid AUSCUL TATION: Yes normoactive bowel sounds PALPATION: Yes Soft to palpation : BLADDER/KIDNEY EXAM: Yes catheter in place Extremity: COMMON NORMALS: normal to inspection and no pedal edema NARRATIVE EXTREMITY EXAM: -feet are warmer to touch today, pulses are still diminished though easier to appreciate (doppler) GENERAL: Yes cyanosis (and diminished peripheral pulses (bilateral LEs)), Yes mottling and Yes pulses abnormal Neuro: COMMON NORMALS: moves all extremities, no focal motor deficits, no sensory deficits noted and gait normal OTHER: -sedated Psych: OTHER: -sedated Skin: COMMON NORMALS: no rashes or lesions noted, no jaundice and no petechiae GENERAL SKIN EXAM: no rashes or lesions noted Urinary Catheter Management^: Smith: Cath Placed During This Visit: yes Urethral Indwelling: Yes Reason for Continuing Indwelling Catheter: Accurate Measurement of Urinary Output in Critically Ill Patients Urinary Catheter Date of Insertion: 01/20/20 Urinary Catheter Time of Insertion: 10:58 Data : 01/21/20 03:20 01/21/20 03:20 Micro: Microbiology 01/20/20 13:00 Legionella Urinary Antigen - Final Urine Catheterized 01/20/20 13:00 Bacterial Antigens - Final Urine Kidney 01/20/20 09:35 Blood Culture - Preliminary Blood SPECIMEN COLLECTED 01/20/20 09:28 Blood Culture - Preliminary Blood SPECIMEN COLLECTED 01/20/20 10:58 Gram Stain - Final Sputum - Endotracheal Tube Aspirate A&P Assessment and plan (1) Acute respiratory failure with hypoxia and hypercapnia: -noted significant hypercapnia and hypoxia on initial ABG, was reportedly conversant on arrival though altered so intubated in ED -received paralytic x 2, on sedation with propofol -is a chronic smoker, has had emphysema for many years per brother at bedside -ABG with noted resolved hypercapnia and hypoxia (7.58/28.9/118); ETT-25 cm @ lip -daily ABG, CXR while on vent -CXR-COPD -on broad spectrum IV antibiotics (Vanc/Zosyn/Levaquin) -sputum cx pending, gram stain-GPC -blood cx: pending -due to symptoms, tested for COVID-19, negative; isolation precautions -bacterial antigens, MRSA, influenza screen, Legionella negative -weaning trial today Status: Acute (2) Decreased responsiveness: -has had some generalized weakness, some noted confusion per family. Noted multifocal small vessel ischemic changes involving centrum semiovale, basal ganglia and thalamic lacunar infarcts as well as right occipital and posterior parietal lobes -Unable to assess neurological status due to current sedation -Unable to obtain MRI at this time as on vent support -Noted hypertensive urgency which is now resolved -Negative alcohol screen, UDS negative, negative salicylates, acetaminophen -pending Echo, carotid US -start on ASA -normal lipid panel, A1c, TSH Status: Acute (3) Acute kidney failure: -No baseline -continue to monitor renal function closely, avoid nephrotoxins, renally dose meds -Has Smith catheter in place, monitor urine output, assess daily for removal Status: Acute Qualifiers: Acute renal failure type: unspecified Qualified Code(s): N17.9 - Acute kidney failure, unspecified (4) Hypertensive urgency: -No prior reported history of hypertension; this could be due to acute illness and possibly due to stroke as mentioned above as well as paralytic with no sedation -Close monitoring of vital signs; permissive hypertension x 24 hours -normotensive Status: Resolved (5) Smoker: -2 PPD x > 30 yrs Status: Chronic (6) COPD (chronic obstructive pulmonary disease): -acute COPD exacerbation; now on vent support -on steroids, empiric antibiotics -close monitoring of respiratory status Status: Acute Qualifiers: COPD type: COPD with acute exacerbation Qualified Code(s): J44.1 - Chronic obstructive pulmonary disease with (acute) exacerbation (7) Peripheral vascular disease: -noted diminished peripheral pulses even with doppler, cool to touch and cyanotic toes -risk factors for PVD: smoker, EtOH use -pending venous and arterial studies -start on ASA -normal lipid panel, A1c Status: Suspected (8) Elevated LFTs: -Has reported history of chronic alcohol abuse, reportedly has been abstinent x 3 years, negative alcohol screen, negative urine drug screen -No apparent ascites on examination, noted cirrhosis on CT abdomen and pelvis -Trend LFTs, negative acute hepatitis panel Status: Acute (9) Chronic back pain: Status: Chronic Qualifiers: Back pain laterality: unspecified Back pain location: low back pain Sciatica presence: unspecified whether sciatica present Qualified Code(s): M54.5 - Low back pain; G89.29 - Other chronic pain Additional A&P Information -at least moderate protein calorie malnutrition: BMI-19 kg/m2 -Chronic EtOH abuse; negative alcohol screen, questionable if recent use though per brother patient has been abstinent x 3 yrs. Banana bag given in ED -GI ppx with PPI -DVT ppx with heparin -Dispo: home -Code status: FULL code -ICU care due to vent support Attestations Medical Necessity Statement*: Patient requires hospitalization for continued management of acute hypoxic and hypercapnic respiratory failure, on vent support, broad-spectrum IV antibiotics, IV steroids. Time Spent in Patient Care: 16 - 35 minutes (>than 50% of time spent in counselling and/or direct pt care on unit) . Coding Level of Care Code Acute [employer] [facility] Fwd Exam Comprehensive Diagnoses Acute respiratory failure with hypoxia and hypercapnia J96.01; J96.02 Decreased responsiveness R41.89 Acute kidney failure N17.9 Acute renal failure type: unspecified Hypertensive urgency I16.0 Smoker F17.200 COPD (chronic obstructive pulmonary disease) J44.1 COPD type: COPD with acute exacerbation Peripheral vascular disease I73.9 Elevated LFTs R79.89 Chronic back pain M54.5; G89.29 Back pain laterality: unspecified Back pain location: low back pain Sciatica presence: unspecified whether sciatica present
[2020-01-21 10:16] LABS: ABG PH Result 7.58 (7.35-7.45)
[2020-01-21 10:17] LABS: Oxygen Device vent
[2020-01-21] MEDS: aspirin 325 mg Tablet OG-TUBE (11:27)
[2020-01-21] MEDS: levofloxacin-dextrose 5 % 750 MG/150 ML PREMIX 100 MG IV (11:27)
--- NOTE | 2020-01-21 11:51 | PC.RESP ---
Smoking Cessation are Pulmonary Rehab information with a schedule of classes.
[2020-01-21 14:39] LABS: Vancomycin Trough 11.3 ug/mL (10-15)
--- NOTE | 2020-01-21 18:34 | PC.NURSE ---
propofol off at 1315.pt slowly awakened and pt extubated at 1620 by [address].placed on 5 l o2 per nc.pt is confused and speech is garbled.pulling at tubes and trying to remove gown.will occas grasp hands when requested (weak).appears to lean body to the left.no obvious facial droop noted.strong cough noted.remains npo.
--- NOTE | 2020-01-21 19:50 | PC.NURSE ---
received patient from ASHISH Peoples. patient noted to be slightly confused and agitated. patient able to be reoriented at this time and kept calm and in bed for safety measures. 1:1 sitter at bedside per order by . PRN ativan placed by for agitation. verbal order to try to reorient patient before medication given. all vital signs stable at this time. will continue to monitor patient.
--- NOTE | 2020-01-21 22:36 | PC.NURSE ---
decrease in patient oxygenation patient attempting to cough up secretions. patient having much trouble being able to cough up all secretions. nurse suctioned patient with yanker and got thick white sputum out. patient continuing to cough, oxygen saturation dropping to 84% and face becoming bright red. currently on 5L NC. patient seems to have an increase in work of breathing from beginning of shift. Respiratory called to bedside to assess patient. called and updated on patient condition.
--- NOTE | 2020-01-21 22:52 | XRR_ITS ---
PROCEDURE INFORMATION: Exam: XR Chest, 1 View Exam date and time: 01/21/2020 11:08 PM Age: 64 years old Clinical indication: Shortness of breath; Patient HX: AMS SOB TECHNIQUE: Imaging protocol: XR of the chest Views: 1 view. COMPARISON: CR (CHEST, ) 01/20/2020 11:55 AM FINDINGS: Lungs: Patchy interstitial and alveolar airspace disease right mid lung and right upper lobe. Question mild scarring left upper lobe. Pleural space: Subpulmonic effusions left greater than right. Heart/Mediastinum: The cardiac silhouette appears enlarged, some of which is magnification related to the AP projection. Bones/joints: Unremarkable. XR/XR chest 1V portable [id number] IMPRESSION: Patchy interstitial and alveolar airspace disease right mid lung and right upper lobe. Question mild scarring left upper lobe. Subpulmonic effusions left greater than right. Mild vascular congestion/edema suggested.
[2020-01-21] MEDS: FUROsemide 10 mg/mL SDV 2mL 20 MG IVP (22:57)
--- NOTE | 2020-01-21 23:09 | PC.NURSE ---
at bedside. patient placed on bipap by respiratory. Stat chest xray ordered. 20mg IV lasix once given per verbal order by . verbal order for ABG 30 min after bipap placement. vital signs stable. will continue to monitor.
[2020-01-21] MEDS: LORazepam 2 mg/mL INJ 1 mL 1 MG IVP (23:14)
--- NOTE | 2020-01-21 23:15 | PC.NURSE ---
patient attempting to pull off mask. when redirecting patient, patient espitia swatting at nurses and getting very upset. PRN ativan given at this time for patient comfort and safety.
--- NOTE | 2020-01-21 23:21 | PM.EVENT ---
Event Note Event Note: I was called at the bedside to evaluate for agitation Patient was extubated today, he is not able to spit out his phlegm, he has weak gag and cough reflex, stroke is a suspicion for his altered mental status on admission Bilateral breath sounds with crackles, mild expiratory wheezing Tachypnea 18-20 Sinus tachycardia Patient looks dry clinic Plan Fluids running at the bedside, with crackles and mild vascular congestion on chest x-ray I will give him Lasix 20 mg IV put him on BiPAP to decrease his respiratory distress Discontinue fluid
[2020-01-21 23:47] LABS: ABG PCO2 84.7 mmHg (35-45); ABG PH Result 7.18 (7.35-7.45); HCO3 ABG 31.3 mmol/L (22-26); PO2 ABG 96.6 mmHg (80.0-100.0)
[2020-01-21 23:48] LABS: Base Excess ABG 0.4 mmol/L (-2.0-2.0); Blood Gas Allen Test POS; Blood Gas Operator Identificat JB; Oxygen Device BIPAP
[2020-01-21 23:49] LABS: Arterial Blood Gas Hematocrit 40.9 % (42-52); BIPAP 18/8; Blood Gas Drawn By BISJE; Blood Gas Sample Site RIGHT RADIAL; Blood Gas Sample Type ARTERIAL
[2020-01-22] VITALS (101 sets, daily range): BP systolic 95–156; BP diastolic 49–89; PULSE 51–90; RESP 12–19; TEMP 36.4–37.2; O2SAT 89–100
[2020-01-22] MEDS: piperacillin-tazobactam 3.375 GM in sodium chloride 0.9% (plus) 50 ML IV ×3 (00:42→15:31)
[2020-01-22 01:00] LABS: ABG PCO2 89.2 mmHg (35-45); ABG PH Result 7.17 (7.35-7.45); Base Excess ABG 1.5 mmol/L (-2.0-2.0); Blood Gas Allen Test POS; Blood Gas Operator Identificat JB; HCO3 ABG 41.5 mmol/L (22-26); PO2 ABG 93.6 mmHg (80.0-100.0)
[2020-01-22 01:01] LABS: Blood Gas Drawn By BISJE; Blood Gas Sample Site RIGHT RADIAL; Blood Gas Sample Type ARTERIAL; Oxygen Device BIPAP
[2020-01-22 01:02] LABS: Arterial Blood Gas Hematocrit 41.5 % (42-52)
--- NOTE | 2020-01-22 01:40 | XRR_ITS ---
PROCEDURE INFORMATION: Exam: XR Chest, 1 View Exam date and time: 01/22/2020 2:08 AM Age: 64 years old Clinical indication: Device placement; Ett placement (vent status); Additional info: Et tube placement/og TECHNIQUE: Imaging protocol: XR of the chest Views: 1 view. COMPARISON: CR XR chest 1V portable [id number] 01/21/2020 10:57 PM FINDINGS: Tubes, catheters and devices: The endotracheal tube is above the level of the alvaro. Nasogastric tube overlies the body of the stomach Lungs: Mild airspace consolidation left lower lobe. Subpulmonic effusions left greater than right. Pleural space: See Lungs finding. Heart/Mediastinum: Unremarkable. No cardiomegaly. Bones/joints: Unremarkable. XR/XR chest 1V portable [id number] IMPRESSION: Mild airspace consolidation left lower lobe. Subpulmonic effusions left greater than right.
[2020-01-22] MEDS: succinylcholine 20 mg/mL SDV 10mL 100 MG IVP (01:47)
[2020-01-22] MEDS: propofol 1,000 MG/100 ML INJ 6.5 MG IV (01:47)
--- NOTE | 2020-01-22 01:51 | PC.NURSE ---
intubation at bedside for emergent intubation. vital signs pre-intubation. HR: 80 BP:120/63 02:93% 20MG etomidate @0134 100mg Succ @0135 8.0 ETT placed 24 at lip. positive CO2 detector change, breath sound equally heard bilaterally. post-intubation vitals. HR:79 BP: 119/68 O2: 97% 18F OG placed by nurse. Stat Xray ordered for placement of ETT tube and OG.
--- NOTE | 2020-01-22 02:05 | P.PCN_ITS ---
Procedure/Consent Time out: Time Out Performed: Yes Procedure Narrative: Patient was failing BiPAP On BiPAP he was showing signs of respiratory acidosis Seen was made to intubate the patient because of poor progress on BiPAP and altered mental status Patient was hyperoxygenated with BiPAP, bp was normal preintubation, he was given etomidate 40 mg and succinylcholine 100 mg, vocal cords were visualized with MAC 3 blade, endotracheal tube size 8 was passed on first obtained without difficulty, end-tidal CO2 detected color change positive, bilateral breath sounds, lip by 24 cm, chest x-ray confirmed ET tube proper placement Post intubation Blood pressure 130/60, heart rate in 80s Because of previous concern for propofol infusion syndrome I would switch him to fentanyl [facility] ventilator settings: 450 tidal volume, respiratory rate 14, PEEP 5, FiO2 50% Repeat blood gas in half an hour No postoperative complication No postoperative bleed Acute Procedures Epistaxis Control: Time out performed: Yes
[2020-01-22] MEDS: heparin 5,000 unit/mL INJ 1 mL 5000 UNIT SUBCUT ×2 (02:21→14:34)
[2020-01-22] MEDS: vancomycin 750 MG in sodium chloride 0.9% 250 ML 250 MG IV ×2 (03:34→14:34)
--- NOTE | 2020-01-22 04:39 | PC.NURSE ---
family updated Spoke with patients brother and sister (Chuy and Latosha) to update family on intubation throughout the night. All questions answered at this time. vital signs stable. will continue to monitor.
[2020-01-22 04:47] LABS: Basophils % 0.1 %; Eosinophils % 0.1 %; Hematocrit 39.8 % (42.0-52.0); Hemoglobin 11.9 g/dL (11.7-16.6); Lymphocytes # 1.8 10^3/uL (0.8-4.8); Lymphocytes % 14.7 %; Mean Corpuscular HGB Conc 29.9 g/dL (30.0-36.0); Mean Corpuscular Volume 97.1 fL (80-94); Mean Platelet Volume 10.9 fL (7.4-10.4); Monocytes % 8.6 %; Neutrophils # 9.1 10^3/uL (1.8-7.7); Nucleated Red Blood Cells % 0.2 %; Platelet Count 135 10^3/cmm (130-400); Red Cell Distribution Width 15.3 % (12.1-15.1); White Blood Count 11.9 10^3/uL (4.0-10.0)
[2020-01-22 05:14] LABS: Alanine Aminotransferase 210 U/L (0-41); Albumin Level 2.9 g/dL (3.5-5.2); Alkaline Phosphatase 48 IU/L (40-130); Anion Gap 17.7 (5-19); Aspartate Amino Transferase 192 U/L (0-40); Blood Urea Nitrogen 24 mg/dL (8-23); Calcium 8.1 mg/dL (8.5-10.5); Carbon Dioxide 26 mmol/L (22-29); Chloride 101 mmol/L (98-107); Creatinine Clr Calc Pharmacy 42.9671; Globulin 2.9 g/dL (1.3-4.6); Glomerular Filtration Rate 60.6 mL/min (90-130); Glucose 83 mg/dL (65-115); Osmolality Calculated 288 mOsm/kg (285-295); Potassium 3.7 mmol/L (3.5-5.1); Sodium 141 mmol/L (136-145); Total Bilirubin 1.1 mg/dL (0.15-1.2); Total Protein 5.8 g/dL (6.6-8.7)
[2020-01-22 05:23] LABS: ABG PCO2 34.8 mmHg (35-45); ABG PH Result 7.55 (7.35-7.45)
[2020-01-22 05:24] LABS: Base Excess ABG 7.8 mmol/L (-2.0-2.0); Blood Gas Operator Identificat JB; Oxygen Device VENT; PO2 ABG 80.4 mmHg (80.0-100.0)
[2020-01-22 05:25] LABS: Blood Gas Drawn By BISJE; Blood Gas Sample Site RIGHT RADIAL; Blood Gas Sample Type ARTERIAL; Blood Gas Vent Mode AC
[2020-01-22 07:58] LABS: Coronavirus Lab Test PTC NOT DETECTED
--- NOTE | 2020-01-22 08:18 | PM.PN ---
Subjective Subjective: Interval history: Overnight, due to noted decompensation, was re-intubated, sedated with Fentanyl due to question of propofol infusion syndrome. Hemodynamically stable, received dose of lasix due to concern for fluid overload, IVF held. Had 2075 mL urine output. CXR done, reports pending. ABG this AM shows improvement (7.55/34.8/80.4). Medications: Reviewed: Yes Medication Review Details: Active Medications Generic Name Dose Route Start Last Admin Trade Name Freq PRN Reason Stop Dose Admin Acetaminophen 650 mg 01/20/20 13:35 Tylenol GA Q6H PRN FEVER Aspirin 325 mg 01/21/20 10:10 01/21/20 11:27 Aspirin OG-TUBE 325 mg DAILY JOSELINE Administration Heparin Sodium (Be ef Lung) 5,000 unit 01/20/20 14:00 01/22/20 02:21 Heparin SUBCUT 5,000 unit Q12H JOSELINE Administration Hydralazine HCl 5 mg 01/20/20 20:47 Apresoline IVP Q4H PRN HYPERTENSION Vancomycin HCl 750 mg/ Sodium 250 mls @ 250 mls /hr 01/20/20 14:30 01/22/20 03:34 Chloride IV 250 mls/hr Q12H JOSELINE Administration Protocol Piperacillin Sod/T azobactam 50 mls @ 12.5 mls /hr 01/20/20 16:00 01/22/20 00:42 Sod 3.375 gm/ So dium Chloride IV 12.5 mls/hr Q8H JOSELINE Administration Protocol Levofloxacin/Dextr ose 750 mg in 150 mls @ 100 mls/hr 01/21/20 12:00 01/21/20 11:27 Levaquin-D5w IV 100 mls/hr Q24H JOSELINE Administration Protocol Sodium Chloride 1,000 mls @ 75 ml s/hr 01/20/20 15:30 01/21/20 19:08 Sodium Chloride 0.9% IV 75 mls/hr .[id number] JOSELINE Administration Fentanyl 1,000 mcg / Sodium 100 mls @ 0 mls/h r 01/22/20 02:15 01/22/20 06:07 Chloride IV 75 mcg/hr .Q0M JOSELINE 7.5 mls/hr Titration Protocol Per Protocol Lorazepam 1 mg 01/21/20 19:20 01/21/20 23:14 Ativan IVP 1 mg Q8H PRN Administration Anxiety or agitat ion Ondansetron HCl 4 mg 01/20/20 13:35 Zofran IVP Q6H PRN NAUSEA AND VOMITI NG Pantoprazole Sodiu m 40 mg 01/20/20 13:35 01/21/20 09:39 Protonix IVP 40 mg DAILY JOSELINE Administration No Known Allergies Allergy (Verified 01/20/20 09:41) Vitals/I&O/Wt Last Vital Signs Temp 98.3 F 01/22/20 04:15 Pulse 70 01/22/20 06:00 Resp 12 01/22/20 07:46 BP 146/72 01/22/20 06:00 Pulse Ox 100 01/22/20 06:00 01/21/20 01/22/20 01/22/20 22:59 06:59 14:59 Intake Total 1300 / 1439.833 13.667 / 1453.500 Output Total 575 / 825 1700 / 2525 Balance 725 / 614.833 -1686.333 / -1071.500 Weight last 48 hrs Weight 50.167 kg Weight 49.079 kg Weight 54.431 kg Physical Exam Const: COMMON NORMALS: no acute distress GENERAL APPEARANCE: patient mechanically ventilated NUTRITIONAL APPEARANCE: thin ORIENTATION/CONSCIOUSNESS: Yes Other orientation findings (sedated) HENMT: COMMON NORMALS: normocephalic and atraumatic HEAD & SCALP: normocephalic and atraumatic OTHER: -ETT: 25 cm @ lip Eye: COMMON NORMALS: conjunctivae normal CONJUNCTIVA: Yes conjunctivae normal PUPIL: Yes Pinpoint pupils bilaterally Neck/C-Spine: COMMON NORMALS: full ROM GENERAL: Yes normal visual inspection and Yes trachea midline OTHER: -L IV Chest: CHEST: Yes Symmetrical chest wall rise Resp: COMMON NORMALS: No retractions and No use of accessory muscles EFFORT & INSPECTION: Yes symmetric chest movement and No tachypneic AUSCULTATION: diminished lung sounds bilateral OTHER: -coarse breath sounds bilaterally though equal air entry bilaterally, on vent support (30%/400/5) Cardio: COMMON NORMALS: regular rate, regular rhythm, S1 normal heart sound present, S2 normal heart sound present and No murmurs present (Cardio) RATE: regular rate RHYTHM: regular rhythm HEART SOUNDS: S1 normal heart sound present and S2 normal heart sound present OTHER: -normotensive GI: COMMON NORMALS: Normal to inspection, nondistended, normoactive bowel sounds present and Soft to palpation INSPECTION: Yes scaphoid AUSCULTATION: Yes normoactive bowel sounds PALPATION: Yes Soft to palpation : BLADDER/KIDNEY EXAM: Yes catheter in place Extremity: COMMON NORMALS: normal to inspection and no pedal edema NARRATIVE EXTREMITY EXAM: -feet are warmer to touch today, pulses are still diminished though easier to appreciate (doppler) GENERAL: Yes cyanosis (and diminished peripheral pulses (bilateral LEs)), Yes mottling and Yes pulses abnormal Neuro: COMMON NORMALS: moves all extremities, no focal motor deficits, no sensory deficits noted and gait normal OTHER: -sedated Psych: COMMON NORMALS: mental status grossly normal, Normal thought process present, cooperative, normal affect and speech normal SPEECH: Yes normal speech THOUGHT PROCESS: Normal thought process present OTHER: -sedated Skin: COMMON NORMALS: no rashes or lesions noted, no jaundice and no petechiae GENERAL SKIN EXAM: no rashes or lesions noted Urinary Catheter Management^: Smith: Cath Placed During This Visit: yes Urethral Indwelling: Yes Reason for Continuing Indwelling Catheter: Accurate Measurement of Urinary Output in Critically Ill Patients Urinary Catheter Date of Insertion: 01/20/20 Urinary Catheter Time of Insertion: 10:58 Data : 01/22/20 04:07 01/22/20 04:07 Micro: Microbiology 01/20/20 13:00 MRSA Culture - Final Nose 01/20/20 10:58 Gram Stain - Final Sputum - Endotracheal Tube Aspirate Sputum Culture - Preliminary 01/20/20 09:35 Blood Culture - Preliminary Blood NEGATIVE TO DATE 01/20/20 09:28 Blood Culture - Preliminary Blood NEGATIVE TO DATE A&P Assessment and plan (1) Acute respiratory failure with hypoxia and hypercapnia: -noted significant hypercapnia and hypoxia on initial ABG, was reportedly conversant on arrival though altered so intubated in ED; weaned off vent yesterday (01/20) and due to noted decompensation overnight, was re-intubated -previously sedated with propofol; now on fentanyl due to question of propofol infusion syndrome -is a chronic smoker, has had emphysema for many years per brother -ABG with noted resolved hypercapnia and hypoxia (7.55/34.8/80.4); ETT-25 cm @ lip -daily ABG, CXR while on vent -CXR today reported as mild LLL consolidation, bilateral effusions L>R -on broad spectrum IV antibiotics (Vanc/Zosyn/Levaquin) -sputum cx prelim mixed socorro, gram stain-GPC -blood cx: prelim negative -due to symptoms, tested for COVID-19, negative; off isolation precautions -bacterial antigens, MRSA, influenza screen, Legionella negative Status: Acute (2) Decreased responsiveness: -has had some generalized weakness, some noted confusion per family. Noted multifocal small vessel ischemic changes involving centrum semiovale, basal ganglia and thalamic lacunar infarcts as well as right occipital and posterior parietal lobes -Unable to assess neurological status due to current sedation -Unable to obtain MRI at this time as on vent support -Noted hypertensive urgency initially which is now resolved -Negative alcohol screen, UDS negative, negative salicylates, acetaminophen -pending carotid US -Echo: EF=62%, trace TR -on ASA -normal lipid panel, A1c, TSH Status: Acute (3) Acute kidney failure: -No baseline -continue to monitor renal function closely, avoid nephrotoxins, renally dose meds -Has Smith catheter in place, monitor urine output, assess daily for removal Status: Acute Qualifiers: Acute renal failure type: unspecified Qualified Code(s): N17.9 - Acute kidney failure, unspecified (4) Hypertensive urgency: -No prior reported history of hypertension; this could be due to acute illness and possibly due to stroke as mentioned above as well as paralytic with no sedation -Close monitoring of vital signs; permissive hypertension x 24 hours -normotensive Status: Resolved (5) Smoker: -2 PPD x > 30 yrs Status: Chronic (6) COPD (chronic obstructive pulmonary disease): -acute COPD exacerbation; now on vent support -on steroids, empiric antibiotics -close monitoring of respiratory status Status: Acute Qualifiers: COPD type: COPD with acute exacerbation Qualified Code(s): J44.1 - Chronic obstructive pulmonary disease with (acute) exacerbation (7) Peripheral vascular disease: -noted diminished peripheral pulses even with doppler, cool to touch and cyanotic toes -risk factors for PVD: smoker, EtOH use -pending venous and arterial studies -on ASA -normal lipid panel, A1c Status: Suspected (8) Elevated LFTs: -Has reported history of chronic alcohol abuse, reportedly has been abstinent x 3 years, negative alcohol screen, negative urine drug screen -No apparent ascites on examination, noted cirrhosis on CT abdomen and pelvis -Trend LFTs, negative acute hepatitis panel Status: Acute (9) Chronic back pain: Status: Chronic Qualifiers: Back pain laterality: unspecified Back pain location: low back pain Sciatica presence: unspecified whether sciatica present Qualified Code(s): M54.5 - Low back pain; G89.29 - Other chronic pain Additional A&P Information -at least moderate protein calorie malnutrition: BMI-19 kg/m2 -Chronic EtOH abuse; negative alcohol screen, questionable if recent use though per brother patient has been abstinent x 3 yrs. Banana bag given in ED -GI ppx with PPI -DVT ppx with heparin -Dispo: home -Code status: FULL code -ICU care due to vent support Attestations Medical Necessity Statement*: Patient requires hospitalization for continued management of acute hypercapnic and hypoxic respiratory failure, reintubated overnight and remains on vent support and sedation. Time Spent in Patient Care: 16 - 35 minutes (>than 50% of time spent in counselling and/or direct pt care on unit). Critical Care Time: The high probability of a clinically significant, sudden or life threatening deterioration of the patient's [cardiovascular, respiratory] system(s) required my full and direct attention, intervention and personal management. The critical care time is as shown. 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 Fwd Exam Comprehensive Diagnoses Acute respiratory failure with hypoxia and hypercapnia J96.01; J96.02 Decreased responsiveness R41.89 Acute kidney failure N17.9 Acute renal failure type: unspecified Hypertensive urgency I16.0 Smoker F17.200 COPD (chronic obstructive pulmonary disease) J44.1 COPD type: COPD with acute exacerbation Peripheral vascular disease I73.9 Elevated LFTs R79.89 Chronic back pain M54.5; G89.29 Back pain laterality: unspecified Back pain location: low back pain Sciatica presence: unspecified whether sciatica present
[2020-01-22] MEDS: aspirin 325 mg Tablet OG-TUBE (09:19)
[2020-01-22] MEDS: pantoprazole 40 mg SDV IVP (09:19)
--- NOTE | 2020-01-22 10:04 | USCV_ITS ---
Nasir Lepe Age: 64 Gender: M : 1955 Exam Date: 01/22/2020 06:37 Ordering Phys: Telma Mccord MD Technologist: Roland Shirley Exam Location: [facility] [place] Indication: CVA Risk Factors: Previous Vascular Surgery: Right Brachial BP: / Left Brachial BP: / Right Left Velocity (cm/s) Spectral Plaque Velocity (cm/s) Spectral Plaque Syst/Diast Broadening Syst/Diast Broadening 107.00/23.50 Prox CCA 82.00 / 13.90 102.20/25.20 Leon Mid CCA 79.50 / 20.20 Leon 116.70/26.40 Leon Distal CCA 93.40 / 21.40 Leon 96.70/ 29.70 Leon Prox ICA 65.60 / 16.40 Leon 114.50/29.70 Leon Mid ICA 66.90 / 18.90 Leon 107.10/25.30 Distal ICA 68.10 / 18.00 104.10 ECA 116.10 0.98 ICA/CCA 0.76 Antegrade Vertebral Antegrade 41.60/ 13.20 cm/s 25.80/ 5.80 cm/s Tri Subclavian Bi 81.10 162.4 0 FINDINGS Mild to moderate diffuse plaques in the common carotid arteries bilaterally Moderate heterogeneous plaques at the bifurcations and internal carotid arteries bilaterally Antegrade flow in the vertebral arteries bilaterally Normal Doppler flow velocities in the external carotid arteries bilaterally Elevated flow velocity in the left subclavian artery CONCLUSIONS Moderate heterogeneous plaques at the bifurcations and internal carotid arteries bilaterally with velocity elevation, consistent with 16 to 49% stenosis on the right side. Mild to moderate diffuse plaques in the common carotid arteries bilaterally Elevated flow velocity in the left subclavian artery may suggest hemodynamically significant stenosis Consider CTA, to better evaluate the arch vessels, if clinically indicated Dr Reid Cagle MD FAC (Electronically Signed) Final Date: 23 January 2020 09:51 S
[2020-01-22] MEDS: levofloxacin-dextrose 5 % 750 MG/150 ML PREMIX 100 MG IV (11:43)
--- NOTE | 2020-01-22 13:35 | USCV_ITS ---
Nasir Lepe Age: 64 Gender: M : 1955 Exam Date: 01/22/2020 06:20 Ordering Phys: Telma Mccord MD Technologist: Roland Shirley Exam Location: [facility] – [place] Indication: CVA BP: 108 / 58 HR: 54 Rhythm: Sinus Technical Quality: Adequate MEASUREMENTS (Male / Female) Normal Values 2D ECHO LV Diastolic Diameter PLAX 3.4 cm 4.2 - 5.9 / 3.9 - 5.3 cm LV Systolic Diameter PLAX 2.0 cm IVS Diastolic Thickness 1.0 cm 0.6 - 1.0 / 0.6 - 0.9 cm IVS Systolic Thickness 1.3 cm LVPW Diastolic Thickness 1.2 cm 0.6 - 1.0 / 0.6 - 0.9 cm LVPW Systolic Thickness 1.2 cm LVOT Diameter 2.0 cm LV Ejection Fraction 2D Teich 74.7 % LV Ejection Fraction MOD 2C 55.5 % LV Ejection Fraction 2C AL 55.3 % LA Diameter 4.5 cm LA Width 3.4 cm LA Height 4.1 cm RA Width 4.0 cm RA Height 4.2 cm M-MODE LV Diastolic Diameter MM 5.2 cm 4.2 - 5.9 / 3.9 - 5.3 cm LV Systolic Diameter MM 3.7 cm LV Ejection Fraction MM Teich 55.7 % IVS Diastolic Thickness MM 0.8 cm 0.6 - 1.0 / 0.6 - 0.9 cm IVS Systolic Thickness MM 1.4 cm LVPW Diastolic Thickness MM 1.3 cm 0.6 - 1.0 / 0.6 - 0.9 cm LVPW Systolic Thickness MM 1.7 cm RV Diastolic Diameter MM 1.3 cm Aortic Annulus Diameter 3.4 cm LA Ao Ratio MM 1.3 MV E Point Septal Separation 1.9 cm DOPPLER AV Peak Velocity 88.0 cm/s LVOT Peak Velocity 89.0 cm/s AV Area Cont Eq vti 3.0 cm squared AV Area Cont Eq pk 3.3 cm squared MV Area PHT 5.0 cm squared Mitral E to A Ratio 1.9 MV E' Velocity 8.0 cm/s Mitral E to MV E' Ratio 8.7 Mitral E to LV E' Lateral Ratio 10.5 Mitral E to LV E' Septal Ratio 7.5 TR Peak Velocity 203.0 cm/s TR Peak Gradient 16.5 mmHg TV Peak E Velocity 84.0 cm/s Right Atrial Pressure 3.0 mmHg Pulmonary Artery Systolic Pressu 19.5 mmHg FINDINGS Left Ventricle Normal left ventricular size and systolic function. Left ventricular ejection fraction is estimated at 62 %. Although no diagnostic regional wall motion abnormality could identified this possibility cannot be completely excluded based on the study. Normal diastolic function. Right Ventricle Normal right ventricular size and systolic function, RVSP 19.5 mmHg. Right Atrium Normal right atrial size. Left Atrium Left atrium not well visualized. Mitral Valve Mitral valve not well visualized. Moderately thickened mitral valve. No mitral valve stenosis. Aortic Valve Aortic valve not well visualized. No aortic valve stenosis. Tricuspid Valve Structurally normal tricuspid valve. Trace tricuspid valve regurgitation. Pulmonic Valve Pulmonic valve not well visualized. Pericardium No pericardial effusion. Aorta Aorta not well visualized. CONCLUSIONS 1. This is a technically difficult study. 2. Normal left ventricular size and systolic function. Left ventricular ejection fraction is estimated at 62 %. Although no diagnostic regional wall motion abnormality could identified this possibility cannot be completely excluded based on the study. Normal diastolic function. 3. No cardioembolic source of stroke based on this study. ALEX is recommended, if clinically indicated Tia Nation MD (Electronically Signed) Final Date: 22 January 2020 16:59 S
--- NOTE | 2020-01-22 14:17 | USCV_ITS ---
Nasir Lepe Age: 64 Gender: M : 1955 Exam Date: 01/22/2020 06:51 Ordering Phys: Telma Mccord MD Technologist: Roland Shirley [place] [facility] [place]ication: BED STASIS HISTORY: Lower extremity swelling. PROCEDURES: The venous duplex Doppler examination of both lower extremities was performed in the standard fashion. The following venous structures were evaluated: common femoral vein, profunda vein, proximal portion of the greater saphenous vein, superficial femoral vein, and the popliteal vein. FINDINGS: Normal 2-D Doppler and augmentation and compressibility throughout the lower extremity venous structures. Additional imaging through the proximal calf veins also reveals no thrombus. Limited evaluation of the greater saphenous vein is patent with no thrombus.. CONCLUSIONS No evidence of DVT in the above-mentioned identifiable veins. Dr Reid Cagle MD [facility] (Electronically Signed) Final Date: 23 January 2020 09:52 S
--- NOTE | 2020-01-22 14:17 | USCV_ITS ---
Nasir Lepe Age: 64 Gender: M : 1955 Exam Date: 01/22/2020 07:01 Ordering Phys: Telma Mccord MD Technologist: Roland Shirley [place] [facility] [place]ication: PAD Risk Factors: Unknown Previous Vascular Surgery: Unknown RIGHT LEFT BP: 120.0 / 59.00 BP: 120.0/ 60.00 0 0 Waveform Velocity (cm/s) Velocity (cm/s) Waveform Monophasic 85.5 Iliac Prox Monophasic 82.9 Iliac Mid Monophasic Iliac Distal 64.7 Monophasic 77.3 ADVANCED PRACTICE PROVIDER Monophasic 67.3 SFA Prox Monophasic 57.0 SFA Mid Monophasic 0.0 SFA Dist Monophasic 75.1 POP Monophasic 18.8 ACADEMIC TUTOR 14.2 Monophasic 15.0 DPA 13.5 0.5 RAJINDER 0.3 FINDINGS Abnormal resting RAJINDER bilaterally Mild to moderate diffuse plaques in the iliac and femoral arteries in the right side. No Doppler flow signals in the left iliac, femoral and popliteal artery. Low velocity continuous Doppler waveforms in the posterior tibial and dorsalis pedis arteries bilaterally CONCLUSIONS 1. Features of total occlusion of the left iliac, femoral and popliteal artery with collateral filling of the posterior tibial and dorsalis pedis arteries. 2. Abnormal resting RAJINDER and Doppler waveforms on the right side, suggestive of severe peripheral arterial disease, possibly multisegmental with collateral filling of the infrapopliteal vessels. Possible total occlusion of the distal SFA. No previous studies are available for comparison Dr Reid Cagle MD [facility] (Electronically Signed) Final Date: 23 January 2020 09:59 S
--- NOTE | 2020-01-22 23:49 | PC.NURSE ---
patient currently on vent support. patient opens eys spontaneously but does not follow commands. tuened for skin protection and comfort. iv patent and quinteros patent with dark straw urine. output is at about 30 mls hr. lungs are ciarse bilateral and wet sounding. patient has copius amount of secretions noted this evening.
[2020-01-23] VITALS (58 sets, daily range): BP systolic 116–174; BP diastolic 54–99; PULSE 51–94; RESP 12–16; TEMP 36.7–37.2; O2SAT 89–98
[2020-01-23] MEDS: ipratropium-albuterol 3 mL Neb INHALATION ×7 (00:20→23:29)
[2020-01-23] MEDS: piperacillin-tazobactam 3.375 GM in sodium chloride 0.9% (plus) 50 ML IV ×3 (00:31→17:40)
[2020-01-23] MEDS: heparin 5,000 unit/mL INJ 1 mL 5000 UNIT SUBCUT ×2 (02:37→13:43)
[2020-01-23] MEDS: vancomycin 750 MG in sodium chloride 0.9% 250 ML 250 MG IV ×2 (02:44→15:32)
[2020-01-23 05:01] LABS: Basophils % 0.3 %; Eosinophils % 0.4 %; Hematocrit 40.7 % (42.0-52.0); Hemoglobin 11.8 g/dL (11.7-16.6); Lymphocytes # 1.1 10^3/uL (0.8-4.8); Lymphocytes % 14.5 %; Mean Corpuscular Volume 96.7 fL (80-94); Mean Platelet Volume 10.6 fL (7.4-10.4); Monocytes # 0.7 10^3/uL (0.2-0.9); Monocytes % 8.9 %; Neutrophils # 5.7 10^3/uL (1.8-7.7); Neutrophils % 75.5 %; Nucleated Red Blood Cells % 0 %; Platelet Count 116 10^3/cmm (130-400); Red Blood Count 4.21 10^6/uL (4.1-5.3); Red Cell Distribution Width 15.2 % (12.1-15.1); White Blood Count 7.6 10^3/uL (4.0-10.0)
[2020-01-23 05:24] LABS: Alanine Aminotransferase 200 U/L (0-41); Albumin Level 2.8 g/dL (3.5-5.2); Alkaline Phosphatase 65 IU/L (40-130); Anion Gap 14.4 (5-19); Aspartate Amino Transferase 168 U/L (0-40); Blood Urea Nitrogen 24 mg/dL (8-23); Calcium 7.8 mg/dL (8.5-10.5); Carbon Dioxide 28 mmol/L (22-29); Chloride 102 mmol/L (98-107); Globulin 2.7 g/dL (1.3-4.6); Glomerular Filtration Rate 96.7 mL/min (90-130); Glucose 95 mg/dL (65-115); Osmolality Calculated 289 mOsm/kg (285-295); Potassium 3.4 mmol/L (3.5-5.1); Sodium 141 mmol/L (136-145); Total Bilirubin 1.2 mg/dL (0.15-1.2); Total Protein 5.5 g/dL (6.6-8.7)
[2020-01-23 05:53] LABS: ABG PH Result 7.42 (7.35-7.45); Arterial Blood Gas Hematocrit 38.4 % (42-52); Base Excess ABG 4.2 mmol/L (-2.0-2.0); Blood Gas Allen Test Pos; Blood Gas Sample Site Radial, right; Blood Gas Sample Type Arterial; HCO3 ABG 29.5 mmol/L (22-26); Oxygen Device VENT
--- NOTE | 2020-01-23 06:00 | XRR_ITS ---
PROCEDURE INFORMATION: Exam: XR Chest, 1 View Exam date and time: 01/23/2020 5:09 AM Age: 64 years old Clinical indication: Device placement; Ett placement (vent status); Additional info: On vent support TECHNIQUE: Imaging protocol: XR of the chest Views: 1 view. COMPARISON: CR XR chest 1V portable [id number] 01/22/2020 1:55 AM FINDINGS: Lungs: Emphysema Alveolar airspace consolidation within the left lower lobe some of which is atelectasis given the volume loss. Pleural space: Unremarkable. No pleural effusion. No pneumothorax. Heart/Mediastinum: Unremarkable. No cardiomegaly. Bones/joints: Unremarkable. The endotracheal tube is above the level of the alvaro. Nasogastric tube below the diaphragm XR/XR chest 1V portable [id number] IMPRESSION: Alveolar airspace consolidation within the left lower lobe some of which is atelectasis given the volume loss. . Small pleural effusion.
--- NOTE | 2020-01-23 07:24 | P.PN_ITS ---
Subjective Subjective: Interval history: Remains on vent support, FiO2 30%, ABG noted with hypoxia. Resolved leukocytosis, stable hemoglobin, mild hypokalemia, normalized creatinine, LFTs trending down. On sedation with fentanyl and Versed. Had 400 mL urine output overnight. Hemodynamically stable, afebrile. Medications: Reviewed: Yes Medication Review Details: Current Medications Generic Name Dose Route Start Last Admin Trade Name Freq PRN Reason Stop Dose Admin Albuterol/Ipratrop ium 3 ml 01/23/20 00:00 01/23/20 03:37 Duoneb INHALATION 3 ml Q4H.RESPIRATORY S CH Administration Aspirin 325 mg 01/21/20 10:10 01/22/20 09:19 Aspirin OG-TUBE 325 mg DAILY JOSELINE Administration Heparin Sodium (Be ef Lung) 5,000 unit 01/20/20 14:00 01/23/20 02:37 Heparin SUBCUT 5,000 unit Q12H JOSELINE Administration Vancomycin HCl 750 mg/ Sodium 250 mls @ 250 mls /hr 01/20/20 14:30 01/23/20 02:44 Chloride IV 250 mls/hr Q12H JOSELINE Administration Protocol Piperacillin Sod/T azobactam 50 mls @ 12.5 mls /hr 01/20/20 16:00 01/23/20 00:31 Sod 3.375 gm/ So dium Chloride IV 12.5 mls/hr Q8H JOSELINE Administration Protocol Levofloxacin/Dextr ose 750 mg in 150 mls @ 100 mls/hr 01/21/20 12:00 01/22/20 11:43 Levaquin-D5w IV 100 mls/hr Q24H JOSELINE Administration Protocol Sodium Chloride 1,000 mls @ 75 ml s/hr 01/20/20 15:30 01/21/20 19:08 Sodium Chloride 0.9% IV 75 mls/hr .[id number] JOSELINE Administration Fentanyl 1,000 mcg / Sodium 100 mls @ 0 mls/h r 01/22/20 02:15 01/23/20 01:28 Chloride IV 100 mcg/hr .Q0M JOSELINE 10 mls/hr Administration Protocol Per Protocol Midazolam HCl 100 mg/ Sodium 100 mls @ 0 mls/h r 01/22/20 10:30 01/22/20 21:53 Chloride IV 4 mg/hr .Q0M JOSELINE 4 mls/hr Administration Protocol Per Protocol Lorazepam 1 mg 01/21/20 19:20 01/21/20 23:14 Ativan IVP 1 mg Q8H PRN Administration Anxiety or agitat ion Pantoprazole Sodiu m 40 mg 01/20/20 13:35 01/22/20 09:19 Protonix IVP 40 mg DAILY JOSELINE Administration Vitals/I&O/Wt Last Vital Signs Temp 99.0 F 01/23/20 06:00 Pulse 63 01/23/20 06:00 Resp 12 01/23/20 06:00 BP 146/66 01/23/20 06:00 Pulse Ox 98 01/23/20 06:00 01/22/20 01/23/20 01/23/20 22:59 06:59 14:59 Intake Total 370.375 / 420.375 99.667 / 520.042 Output Total 800 / 800 200 / 1000 Balance -429.625 / -379.625 -100.333 / -479.958 Weight last 48 hrs Weight 49.895 kg Weight 50.167 kg Physical Exam Const: COMMON NORMALS: no acute distress GENERAL APPEARANCE: patient mechanically ventilated NUTRITIONAL APPEARANCE: thin ORIENTATION/CONSCIOUSNESS: Yes Other orientation findings (sedated) HENMT: COMMON NORMALS: normocephalic and atraumatic HEAD & SCALP: normocephalic and atraumatic OTHER: -ETT: 25 cm @ lip Eye: COMMON NORMALS: conjunctivae normal CONJUNCTIVA: Yes conjunctivae normal PUPIL: Yes Pinpoint pupils bilaterally Neck/C-Spine: COMMON NORMALS: full ROM GENERAL: Yes normal visual inspection and Yes trachea midline OTHER: -L IV Chest: CHEST: Yes Symmetrical chest wall rise Resp: COMMON NORMALS: No retractions and No use of accessory muscles EFFORT & INSPECTION: Yes symmetric chest movement and No tachypneic AUSCULTATION: diminished lung sounds bilateral OTHER: -coarse breath sounds bilaterally though equal air entry bilaterally, on vent support (30%/400/5) Cardio: COMMON NORMALS: regular rate, regular rhythm, S1 normal heart sound present, S2 normal heart sound present and No murmurs present (Cardio) RATE: regular rate RHYTHM: regular rhythm HEART SOUNDS: S1 normal heart sound present and S2 normal heart sound present OTHER: -normotensive GI: COMMON NORMALS: Normal to inspection, nondistended, normoactive bowel so unds present and Soft to palpation INSPECTION: Yes scaphoid AUSCULTATION: Yes normoactive bowel sounds PALPATION: Yes Soft to palpation : BLADDER/KIDNEY EXAM: Yes catheter in place Extremity: COMMON NORMALS: normal to inspection and no pedal edema NARRATIVE EXTREMITY EXAM: -feet are warm to touch, pulses are still diminished though easier to appreciate (doppler) GENERAL: Yes cyanosis (and diminished peripheral pulses (bilateral LEs)), Yes mottling and Yes pulses abnormal Neuro: COMMON NORMALS: moves all extremities, no focal motor deficits, no sensory deficits noted and gait normal OTHER: -sedated (fentanyl @ 100 mcg/hr, Versed @ 4 mL/hr) Psych: COMMON NORMALS: mental status grossly normal, Normal thought process present, cooperative, normal affect and speech normal SPEECH: Yes normal speech THOUGHT PROCESS: Normal thought process present OTHER: -sedated Skin: COMMON NORMALS: no rashes or lesions noted, no jaundice and no petechiae GENERAL SKIN EXAM: no rashes or lesions noted Urinary Catheter Management^: Smith: Cath Placed During This Visit: yes Urethral Indwelling: Yes Reason for Continuing Indwelling Catheter: Accurate Measurement of Urinary Output in Critically Ill Patients Urinary Catheter Date of Insertion: 01/20/20 Urinary Catheter Time of Insertion: 10:58 Data : 01/23/20 04:32 01/23/20 04:32 Micro: Microbiology 01/20/20 10:58 Gram Stain - Final Sputum - Endotracheal Tube Aspirate Sputum Culture - Final Moraxella catarrhalis A&P Assessment and plan (1) Acute respiratory failure with hypoxia and hypercapnia: -noted significant hypercapnia and hypoxia on initial ABG, was reportedly conversant on arrival though altered so intubated in ED; weaned off vent yesterday (01/20) and due to noted decompensation overnight, was re-intubated -previously sedated with propofol; now on fentanyl due to question of propofol infusion syndrome -is a chronic smoker, has had emphysema for many years per brother -ABG with noted resolved hypercapnia and hypoxia (7.42/46.0/68.0); ETT-25 cm @ lip -daily ABG, CXR while on vent -CXR today pending report but has noted increased haziness on the L -on broad spectrum IV antibiotics (Vanc/Zosyn/Levaquin) -sputum cx-Moraxella catarrhalis, gram stain-GPC -blood cx: prelim negative -due to symptoms, tested for COVID-19, negative; off isolation precautions -bacterial antigens, MRSA, influenza screen, Legionella negative Status: Acute (2) Decreased responsiveness: -has had some generalized weakness, some noted confusion per family. Noted multifocal small vessel ischemic changes involving centrum semiovale, basal ganglia and thalamic lacunar infarcts as well as right occipital and posterior parietal lobes -Unable to assess neurological status due to current sedation -Unable to obtain MRI at this time as on vent support -Noted hypertensive urgency initially which is now resolved -Negative alcohol screen, UDS negative, negative salicylates, acetaminophen -pending carotid US -Echo: EF=62%, trace TR -on ASA -normal lipid panel, A1c, TSH Status: Acute (3) Acute kidney failure: -No baseline -continue to monitor renal function closely, avoid nephrotoxins, renally dose meds -Has Smith catheter in place, monitor urine output, assess daily for removal Status: Acute Qualifiers: Acute renal failure type: unspecified Qualified Code(s): N17.9 - Acute kidney failure, unspecified (4) Hypertensive urgency: -No prior reported history of hypertension; this could be due to acute illness and possibly due to stroke as mentioned above as well as paralytic with no sedation -Close monitoring of vital signs; off permissive hypertension x 24 hours -normotensive Status: Resolved (5) Smoker: -2 PPD x > 30 yrs Status: Chronic (6) COPD (chronic obstructive pulmonary disease): -acute COPD exacerbation; on vent support -on steroids, empiric antibiotics -close monitoring of respiratory status Status: Acute Qualifiers: COPD type: COPD with acute exacerbation Qualified Code(s): J44.1 - Chronic obstructive pulmonary disease with (acute) exacerbation (7) Peripheral vascular disease: -noted diminished peripheral pulses even with doppler, cool to touch and cyanotic toes -risk factors for PVD: smoker, EtOH use -pending venous and arterial studies -on ASA -normal lipid panel, A1c Status: Suspected (8) Elevated LFTs: -Has reported history of chronic alcohol abuse, reportedly has been a bstinent x 3 years, negative alcohol screen, negative urine drug screen -No apparent ascites on examination, noted cirrhosis on CT abdomen and pelvis -Trend LFTs, negative acute hepatitis panel; LFTs improving Status: Acute (9) Chronic back pain: Status: Chronic Qualifiers: Back pain location: low back pain Back pain laterality: unspecified Sciatica presence: unspecified whether sciatica present Qualified Code(s): M54.5 - Low back pain; G89.29 - Other chronic pain Additional A&P Information -at least moderate protein calorie malnutrition: BMI-18 kg/m2 -Chronic EtOH abuse; negative alcohol screen, questionable if recent use though per brother patient has been abstinent x 3 yrs. Banana bag given in ED -GI ppx with PPI -DVT ppx with heparin -Dispo: home -Code status: FULL code -ICU care due to vent support Attestations Medical Necessity Statement*: Patient requires hospitalization for continued management of acute respiratory failure, on vent support, broad-spectrum IV antibiotics. Time Spent in Patient Care: 16 - 35 minutes (>than 50% of time spent in counselling and/or direct pt care on unit) . Critical Care Time: The high probability of a clinically significant, sudden or life threatening deterioration of the patient's [respiratory] system(s) required my full and direct attention, intervention and personal management. The critical care time is as shown. 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
--- NOTE | 2020-01-23 09:50 | PC.SOCIAL ---
IMM Page 2 of IMM given to patient. Initialed, dated, and timed and placed in chart.
[2020-01-23] MEDS: pantoprazole 40 mg SDV IVP (10:01)
[2020-01-23] MEDS: aspirin 325 mg Tablet OG-TUBE (10:01)
[2020-01-23] MEDS: potassium chloride oral liq 20 mEq/15 mL UDC 40 MEQ OG-TUBE (10:26)
--- NOTE | 2020-01-23 12:21 | PC.SOCIAL ---
IMM completed 01/23/20 @ [id number]
[2020-01-23] MEDS: levofloxacin-dextrose 5 % 750 MG/150 ML PREMIX 100 MG IV (13:43)
--- NOTE | 2020-01-23 13:51 | PC.NURSE ---
Pt sedation was taken down to for sedation vacation. He woke up and would not respond to verbal stimuli. would track to voice but would not follow commands. Later he was found to be pulling on his quinteros, sedation was increased back up for comfort level.
--- NOTE | 2020-01-23 15:39 | PC.NURSE ---
Pt o2 went down and maintaining at 88-89%. Emiliana from [facility] called. She states she will increase his oxygen.
[2020-01-23] MEDS: hyDRALAzine 20 mg/mL INJ 1 mL 5 MG IVP (15:44)
[2020-01-23] MEDS: atorvastatin 40 mg Tablet OG-TUBE (21:03)
[2020-01-24] VITALS (36 sets, daily range): BP systolic 131–184; BP diastolic 58–114; PULSE 74–95; RESP 12–24; TEMP 36.9–37.8; O2SAT 93–96
[2020-01-24] MEDS: piperacillin-tazobactam 3.375 GM in sodium chloride 0.9% (plus) 50 ML IV ×4 (00:17→23:51)
[2020-01-24] MEDS: vancomycin 750 MG in sodium chloride 0.9% 250 ML 250 MG IV ×2 (03:51→14:34)
[2020-01-24] MEDS: heparin 5,000 unit/mL INJ 1 mL 5000 UNIT SUBCUT ×2 (03:53→14:32)
[2020-01-24] MEDS: ipratropium-albuterol 3 mL Neb INHALATION ×6 (03:55→23:19)
[2020-01-24 04:54] LABS: Basophils % 0.1 %; Eosinophils % 0.3 %; Hematocrit 39.8 % (42.0-52.0); Hemoglobin 11.8 g/dL (11.7-16.6); Lymphocytes # 0.8 10^3/uL (0.8-4.8); Lymphocytes % 11.6 %; Mean Corpuscular HGB Conc 29.6 g/dL (30.0-36.0); Mean Corpuscular Hemoglobin 28.7 pg (28.0-34.0); Mean Corpuscular Volume 96.8 fL (80-94); Mean Platelet Volume 10.6 fL (7.4-10.4); Monocytes # 0.7 10^3/uL (0.2-0.9); Monocytes % 10.4 %; Neutrophils # 5.4 10^3/uL (1.8-7.7); Neutrophils % 77.3 %; Nucleated Red Blood Cells % 0 %; Platelet Count 117 10^3/cmm (130-400); Red Blood Count 4.11 10^6/uL (4.1-5.3); Red Cell Distribution Width 15.1 % (12.1-15.1)
[2020-01-24 05:20] LABS: Alanine Aminotransferase 179 U/L (0-41); Albumin Level 2.7 g/dL (3.5-5.2); Alkaline Phosphatase 69 IU/L (40-130); Anion Gap 14.2 (5-19); Aspartate Amino Transferase 122 U/L (0-40); Blood Urea Nitrogen 17 mg/dL (8-23); Calcium 8.3 mg/dL (8.5-10.5); Carbon Dioxide 28 mmol/L (22-29); Chloride 103 mmol/L (98-107); Glomerular Filtration Rate 84.4 mL/min (90-130); Glucose 83 mg/dL (65-115); Osmolality Calculated 288 mOsm/kg (285-295); Potassium 4.2 mmol/L (3.5-5.1); Sodium 141 mmol/L (136-145); Total Bilirubin 0.9 mg/dL (0.15-1.2); Total Protein 5.7 g/dL (6.6-8.7)
[2020-01-24 05:46] LABS: Blood Gas Allen Test Pos; Blood Gas Sample Site Radial, right; Blood Gas Sample Type Arterial; HCO3 ABG 29.7 mmol/L (22-26); Oxygen Device VENT; PO2 ABG 76.7 mmHg (80.0-100.0)
--- NOTE | 2020-01-24 06:00 | XRR_ITS ---
PROCEDURE INFORMATION: Exam: XR Chest, 1 View Exam date and time: 01/24/2020 4:31 AM Age: 64 years old Clinical indication: Device placement; Other: Et, og; Additional info: On vent support, AMS TECHNIQUE: Imaging protocol: XR of the chest Views: 1 view. COMPARISON: CR XR chest 1V portable [id number] 01/23/2020 4:58 AM FINDINGS: Tubes, catheters and devices: The endotracheal tube is above the level of the alvaro. nasogastric tube extends below the diaphragm although the location of the tip not identified as it is outside of the [id number]. Lungs: Emphysema Alveolar airspace consolidation within the left lower lobe. Left pleural effusion. Pleural space: Small subpulmonic effusion on the right Heart/Mediastinum: Unremarkable. No cardiomegaly. Bones/joints: Unremarkable. XR/XR chest 1V portable [id number] IMPRESSION: Alveolar airspace consolidation within the left lower lobe. Atelectasis and or infiltrate. Left pleural effusion. Stable.
[2020-01-24] MEDS: aspirin 325 mg Tablet OG-TUBE (09:11)
[2020-01-24] MEDS: pantoprazole 40 mg SDV IVP (09:11)
[2020-01-24] MEDS: levofloxacin-dextrose 5 % 750 MG/150 ML PREMIX 100 MG IV (11:32)
--- NOTE | 2020-01-24 11:33 | P.PN_ITS ---
Subjective Subjective: Interval history: Remains on vent support, FiO2 30%, ABG noted with hypoxia. Resolved leukocytosis, stable hemoglobin, mild hypokalemia, normalized creatinine, LFTs trending down. On sedation with fentanyl and Versed. Had 400 mL urine output overnight. Hemodynamically stable, afebrile. Noted increased secretions and need for frequent suctioning. Medications: Reviewed: Yes Medication Review Details: Active Medications Generic Name Dose Route Start Last Admin Trade Name Freq PRN Reason Stop Dose Admin Acetaminophen 650 mg 01/20/20 13:35 Tylenol AK Q6H PRN FEVER Albuterol/Ipratrop ium 3 ml 01/23/20 00:00 01/24/20 07:47 Duoneb INHALATION 3 ml Q4H.RESPIRATORY S CH Administration Aspirin 325 mg 01/21/20 10:10 01/24/20 09:11 Aspirin OG-TUBE 325 mg DAILY JOSELINE Administration Atorvastatin Calci um 40 mg 01/23/20 21:00 01/23/20 21:03 Lipitor OG-TUBE 40 mg BEDTIME JOSELINE Administration Heparin Sodium (Be ef Lung) 5,000 unit 01/20/20 14:00 01/24/20 03:53 Heparin SUBCUT 5,000 unit Q12H JOSELINE Administration Hydralazine HCl 5 mg 01/20/20 20:47 01/23/20 15:44 Apresoline IVP 5 mg Q4H PRN Administration HYPERTENSION Vancomycin HCl 750 mg/ Sodium 250 mls @ 250 mls /hr 01/20/20 14:30 01/24/20 03:51 Chloride IV 250 mls/hr Q12H JOSELINE Administration Protocol Piperacillin Sod/T azobactam 50 mls @ 12.5 mls /hr 01/20/20 16:00 01/24/20 09:11 Sod 3.375 gm/ So dium Chloride IV 12.5 mls/hr Q8H JOSELINE Administration Protocol Levofloxacin/Dextr ose 750 mg in 150 mls @ 100 mls/hr 01/21/20 12:00 01/24/20 11:32 Levaquin-D5w IV 100 mls/hr Q24H JOSELINE Administration Protocol Sodium Chloride 1,000 mls @ 75 ml s/hr 01/20/20 15:30 01/21/20 19:08 Sodium Chloride 0.9% IV 75 mls/hr .[id number] JOSELINE Administration Fentanyl 1,000 mcg / Sodium 100 mls @ 0 mls/h r 01/22/20 02:15 01/24/20 11:30 Chloride IV 30 mcg/hr .Q0M JOSELINE 3 mls/hr Titration Protocol Per Protocol Midazolam HCl 100 mg/ Sodium 100 mls @ 0 mls/h r 01/22/20 10:30 01/23/20 21:44 Chloride IV 2 mg/hr .Q0M JOSELINE 2 mls/hr Administration Protocol Per Protocol Lorazepam 1 mg 01/21/20 19:20 01/21/20 23:14 Ativan IVP 1 mg Q8H PRN Administration Anxiety or agitat ion Ondansetron HCl 4 mg 01/20/20 13:35 Zofran IVP Q6H PRN NAUSEA AND VOMITI NG Pantoprazole Sodiu m 40 mg 01/20/20 13:35 01/24/20 09:11 Protonix IVP 40 mg DAILY JOSELINE Administration No Known Allergies Allergy (Verified 01/20/20 09:41) Vitals/I&O/Wt Last Vital Signs Temp 100.0 F H 01/24/20 07:00 Pulse 82 01/24/20 11:04 Resp 12 01/24/20 11:04 BP 158/71 01/24/20 10:00 Pulse Ox 95 01/24/20 11:02 01/23/20 01/24/20 01/24/20 22:59 06:59 14:59 Intake Total 518.133 / 735.933 50 / 785.933 82.7 / 82.7 Output Total 100 / 525 Balance 418.133 / 210.933 50 / 260.933 82.7 / 82.7 Weight last 48 hrs Weight 48.262 kg Weight 46.72 kg Physical Exam Const: COMMON NORMALS: no acute distress GENERAL APPEARANCE: patient mechanically ventilated NUTRITIONAL APPEARANCE: thin ORIENTATION/CONSCIOUSNESS: Yes Other orientation findings (sedated though arousable to verbal and tactile stimulation) HENMT: COMMON NORMALS: normocephalic and atraumatic HEAD & SCALP: normocephalic and atraumatic OTHER: -ETT: 24 cm @ lip Eye: COMMON NORMALS: conjunctivae normal CONJUNCTIVA: Yes conjunctivae normal PUPIL: Yes Pinpoint pupils bilaterally Neck/C-Spine: COMMON NORMALS: full ROM GENERAL: Yes normal visual inspection and Yes trachea midline Chest: CHEST: Yes Symmetrical chest wall rise Resp: COMMON NORMALS: No retractions and No use of accessory muscles EFFORT & INSPECTION: Yes symmetric chest movement and No tachypneic AUSCULTATION: diminished lung sounds bilateral OTHER: -coarse breath sounds bilaterally though equal air entry bilaterally, on vent support (40%/400/5) Cardio: COMMON NORMALS: regular rate, regular rhythm, S1 normal heart sound present, S2 normal heart sound present and No murmurs present (Cardio) RATE: regular rate RHYTHM: regular rhythm HEART SOUNDS: S1 normal heart sound present and S2 normal heart sound present OTHER: -normotensive GI: COMMON NORMALS: Normal to inspection, nondistended, normoactive bowel sounds present and Soft to palpation INSPECTION: Yes scaphoid AUSCULTATION: Yes normoactive bowel sounds PALPATION: Yes Soft to palpation : BLADDER/KIDNEY EXAM: Yes catheter in place Extremity: COMMON NORMALS: normal to inspection and no pedal edema NARRATIVE EXTREMITY EXAM: -feet are warm to touch, pulses are still diminished though easier to appreciate (doppler) GENERAL: Yes cyanosis (and diminished peripheral pulses (bilateral LEs)), Yes mottling and Yes pulses abnormal Neuro: COMMON NORMALS: moves all extremities, no focal motor deficits, no sensory deficits noted and gait normal OTHER: -sedated (fentanyl @ 30 mcg/hr, Versed @ 2 mL/hr) -arousable to painful, tactile and verbal stimulation though unable to follow commands consistently. Psych: OTHER: -sedated Skin: COMMON NORMALS: no rashes or lesions noted, no jaundice and no petechiae GENERAL SKIN EXAM: no rashes or lesions noted Urinary Catheter Management^: Smith: Cath Placed During This Visit: yes Urethral Indwelling: Yes Reason for Continuing Indwelling Catheter: Accurate Measurement of Urinary Output in Critically Ill Patients Urinary Catheter Date of Insertion: 01/20/20 Urinary Catheter Time of Insertion: 10:58 Data : 01/24/20 04:00 01/24/20 04:00 A&P Assessment and plan (1) Acute respiratory failure with hypoxia and hypercapnia: -noted significant hypercapnia and hypoxia on initial ABG, was reportedly conversant on arrival though altered so intubated in ED; weaned off vent yesterday (01/20) and due to noted decompensation overnight, was re-intubated -previously sedated with propofol; now on fentanyl due to question of propofol infusion syndrome -is a chronic smoker, has had emphysema for many years per brother -ABG with noted resolved hypercapnia and hypoxia (7.40/48.0/76.7); ETT-25 cm @ lip -daily ABG, CXR while on vent -CXR noted with LLL consolidation, atelectasis and L pleural effusion -on broad spectrum IV antibiotics (Vanc/Zosyn/Levaquin) -sputum cx-Moraxella catarrhalis, gram stain-GPC -blood cx: prelim negative -due to symptoms, tested for COVID-19, negative; off isolation precautions -bacterial antigens, MRSA, influenza screen, Legionella negative -diuresis as needed -wean when appropriate; ideally when patient is consistently following commands Status: Acute (2) Decreased responsiveness: -has had some generalized weakness, some noted confusion per family. Noted multifocal small vessel ischemic changes involving centrum semiovale, basal ganglia and thalamic lacunar infarcts as well as right occipital and posterior parietal lobes -Unable to assess neurological status due to current sedation -Unable to obtain MRI at this time as on vent support -Noted hypertensive urgency initially which is now resolved -Negative alcohol screen, UDS negative, negative salicylates, acetaminophen -carotid US-16-49% stenosis on R,mild to moderate diffuse plaques in the common carotid arteries bilaterally. Will likely need CTA for further evaluation given evidence of CVA -Echo: EF=62%, trace TR -on ASA, statin -normal lipid panel, A1c, TSH Status: Acute (3) Acute kidney failure: -No baseline; stable renal function -continue to monitor renal function closely, avoid nephrotoxins, renally dose me ds -Has Smith catheter in place, monitor urine output, assess daily for removal Status: Acute Qualifiers: Acute renal failure type: unspecified Qualified Code(s): N17.9 - Acute kidney failure, unspecified (4) Hypertensive urgency: -No prior reported history of hypertension; this could be due to acute illness and possibly due to stroke as mentioned above as well as paralytic with no sedation -Close monitoring of vital signs; off permissive hypertension x 24 hours -normotensive Status: Resolved (5) Smoker: -2 PPD x > 30 yrs Status: Chronic (6) COPD (chronic obstructive pulmonary disease): -acute COPD exacerbation; on vent support -on steroids, empiric antibiotics -close monitoring of respiratory status Status: Acute Qualifiers: COPD type: COPD with acute exacerbation Qualified Code(s): J44.1 - Chronic obstructive pulmonary disease with (acute) exacerbation (7) Peripheral vascular disease: -noted diminished peripheral pulses even with doppler, cool to touch and cyanotic toes -risk factors for PVD: smoker, EtOH use -Venous duplex negative for DVT bilaterally. -Arterial studies show total occlusion of the left iliac, femoral and popliteal artery with collateral filling of the posterior tibial and dorsalis pedis curly shaneka; abnormal resting RAJINDER on the right suggestive of severe PAD, possible total occlusion of the distal SFA. Will likely need CTA with runoff for further evaluation. -on ASA, statin -normal lipid panel, A1c Status: Suspected (8) Elevated LFTs: -Has reported history of chronic alcohol abuse, reportedly has been a bstinent x 3 years, negative alcohol screen, negative urine drug screen -No apparent ascites on examination, noted cirrhosis on CT abdomen and pelvis -Trend LFTs, negative acute hepatitis panel; LFTs improving Status: Acute (9) Chronic back pain: Status: Chronic Qualifiers: Back pain location: low back pain Back pain laterality: unspecified Sciatica presence: unspecified whether sciatica present Qualified Code(s): M54.5 - Low back pain; G89.29 - Other chronic pain Additional A&P Information -at least moderate protein calorie malnutrition: BMI-17 kg/m2 -Chronic EtOH abuse; negative alcohol screen, questionable if recent use though per brother patient has been abstinent x 3 yrs. Banana bag given in ED -Thrombocytopenia; stable platelet count even with ASA and heparin; continue to monitor -GI ppx with PPI -DVT ppx with heparin -Dispo: home -Code status: FULL code -ICU care due to vent support Attestations Medical Necessity Statement*: Patient requires hospitalization for continued management of acute respiratory failure, remains on vent support, sedation. Time Spent in Patient Care: 16 - 35 minutes (>than 50% of time spent in counselling and/or direct pt care on unit) . Critical Care Time: The high probability of a clinically significant, sudden or life threatening deterioration of the patient's [cardiovascular, respiratory] system(s) required my full and direct attention, intervention and personal management. The critical care time is as shown. This time is in addition to time spent performing any reported procedures but includes the following: [x] Data and vital sign review and interpretation [x] Patient assessment, examination and intervention [x] Documentation [x] Medication orders and management Critical Care Time (min): 20 Coding Level of Care Code Acute Chief Specialist Leed for Bobbig Fwd Diagnoses Acute respiratory failure with hypoxia and hypercapnia J96.01; J96.02 Decreased responsiveness R41.89 Acute kidney failure N17.9 Acute renal failure type: unspecified Hypertensive urgency I16.0 Smoker F17.200 COPD (chronic obstructive pulmonary disease) J44.1 COPD type: COPD with acute exacerbation Peripheral vascular disease I73.9 Elevated LFTs R79.89 Chronic back pain M54.5; G89.29 Back pain location: low back pain Back pain laterality: unspecified Sciatica presence: unspecified whether sciatica present
[2020-01-24] MEDS: bumetanide 0.25 mg/mL SDV 10 mL 1 MG IV (14:32)
[2020-01-24] MEDS: LORazepam 2 mg/mL INJ 1 mL 1 MG IVP (16:57)
[2020-01-24] MEDS: hyDRALAzine 20 mg/mL INJ 1 mL 5 MG IVP (18:17)
[2020-01-24] MEDS: atorvastatin 40 mg Tablet OG-TUBE (21:10)
[2020-01-25] VITALS (42 sets, daily range): BP systolic 125–188; BP diastolic 62–96; PULSE 56–99; RESP 12–34; TEMP 36.6–37.8; O2SAT 91–97
[2020-01-25] MEDS: heparin 5,000 unit/mL INJ 1 mL 5000 UNIT SUBCUT ×2 (01:59→14:49)
[2020-01-25] MEDS: vancomycin 750 MG in sodium chloride 0.9% 250 ML 250 MG IV ×2 (02:31→14:39)
[2020-01-25] MEDS: ipratropium-albuterol 3 mL Neb INHALATION ×6 (03:48→23:38)
[2020-01-25 05:30] LABS: Basophils % 0.1 %; Hematocrit 42.1 % (42.0-52.0); Hemoglobin 12.8 g/dL (11.7-16.6); Lymphocytes # 0.4 10^3/uL (0.8-4.8); Lymphocytes % 5.8 %; Mean Corpuscular HGB Conc 30.4 g/dL (30.0-36.0); Mean Corpuscular Hemoglobin 28.8 pg (28.0-34.0); Mean Corpuscular Volume 94.6 fL (80-94); Mean Platelet Volume 10.7 fL (7.4-10.4); Monocytes # 0.2 10^3/uL (0.2-0.9); Monocytes % 3.4 %; Neutrophils # 6.1 10^3/uL (1.8-7.7); Neutrophils % 90.3 %; Nucleated Red Blood Cells % 0 %; Platelet Count 114 10^3/cmm (130-400); Red Blood Count 4.45 10^6/uL (4.1-5.3); Red Cell Distribution Width 14.7 % (12.1-15.1); White Blood Count 6.8 10^3/uL (4.0-10.0)
[2020-01-25 05:36] LABS: ABG PCO2 46.7 mmHg (35-45); ABG PH Result 7.43 (7.35-7.45); Arterial Blood Gas Hematocrit 40.5 % (42-52); Base Excess ABG 5.7 mmol/L (-2.0-2.0); Blood Gas Allen Test Pos; Blood Gas Sample Site Radial, right; Blood Gas Sample Type Arterial; Blood Gas Tidal Volume 0.4; Oxygen Device VENT; PO2 ABG 75.4 mmHg (80.0-100.0)
[2020-01-25 05:45] LABS: Alanine Aminotransferase 152 U/L (0-41); Albumin Level 3.1 g/dL (3.5-5.2); Alkaline Phosphatase 62 IU/L (40-130); Anion Gap 15.9 (5-19); Aspartate Amino Transferase 119 U/L (0-40); Blood Urea Nitrogen 20 mg/dL (8-23); Calcium 8.8 mg/dL (8.5-10.5); Carbon Dioxide 28 mmol/L (22-29); Chloride 98 mmol/L (98-107); Globulin 3.4 g/dL (1.3-4.6); Glomerular Filtration Rate 96.7 mL/min (90-130); Glucose 145 mg/dL (65-115); Osmolality Calculated 285 mOsm/kg (285-295); Potassium 3.9 mmol/L (3.5-5.1); Sodium 138 mmol/L (136-145); Total Protein 6.5 g/dL (6.6-8.7)
--- NOTE | 2020-01-25 06:00 | XRR_ITS ---
PROCEDURE INFORMATION: Exam: XR Chest, 1 View Exam date and time: 01/25/2020 4:44 AM Age: 64 years old Clinical indication: Shortness of breath; Patient HX: AMS; Additional info: On vent support TECHNIQUE: Imaging protocol: XR of the chest Views: 1 view. COMPARISON: CR XR chest 1V portable [id number] 01/24/2020 4:16 AM FINDINGS: Tubes, catheters and devices: Stable position of endotracheal tube. Enteric tube extends to the left abdomen. Lungs: Hyperinflation. Persistent retrocardiac left lower lobe opacity. Pleural space: Pleural thickening or small left effusion. Similar blunting of the right costophrenic angle. Heart/Mediastinum: Stable heart size. Right paratracheal calcification. Bones/joints: Unremarkable. XR/XR chest 1V portable [id number] IMPRESSION: No change since 1 day previous.
--- NOTE | 2020-01-25 06:50 | PC.NURSE ---
Report received from ASHISH Kwong. Pt off sedation. He takes quit a bit to wake up. He is to trial vent weaning today. He needs to be watched carefully because he does reach for the ETT with his right hand. He is a tiny little man but strong. He has an abrasin on his left hip. He is hard of hearing and has poor vision. Smith patent with dark urine with sediment.
[2020-01-25] MEDS: aspirin 325 mg Tablet OG-TUBE (08:32)
[2020-01-25] MEDS: pantoprazole 40 mg SDV IVP (08:32)
[2020-01-25] MEDS: piperacillin-tazobactam 3.375 GM in sodium chloride 0.9% (plus) 50 ML IV ×3 (08:32→23:57)
--- NOTE | 2020-01-25 08:38 | P.PN_ITS ---
Subjective Subjective: Interval history: Sedation turned off overnight, patient has gradually been more awake and more consistently following commands. Remains on vent support with FiO2 of 40%, ABG noted, hemodynamically stable, low-grade temp of 100 F around midnight, has been afebrile since. Medications: Reviewed: Yes Medication Review Details: Active Medications Generic Name Dose Route Start Last Admin Trade Name Freq PRN Reason Stop Dose Admin Acetaminophen 650 mg 01/20/20 13:35 Tylenol WI Q6H PRN FEVER Albuterol/Ipratrop ium 3 ml 01/23/20 00:00 01/25/20 07:48 Duoneb INHALATION 3 ml Q4H.RESPIRATORY S CH Administration Aspirin 325 mg 01/21/20 10:10 01/25/20 08:32 Aspirin OG-TUBE 325 mg DAILY JOSELINE Administration Atorvastatin Calci um 40 mg 01/23/20 21:00 01/24/20 21:10 Lipitor OG-TUBE 40 mg BEDTIME JOSELINE Administration Atropine Sulfate 4 drop 01/24/20 11:54 Isopto Atropine SUBLINGUAL Q2H PRN SECRETIONS Heparin Sodium (Be ef Lung) 5,000 unit 01/20/20 14:00 01/25/20 01:59 Heparin SUBCUT 5,000 unit Q12H JOSELINE Administration Hydralazine HCl 5 mg 01/20/20 20:47 01/24/20 18:17 Apresoline IVP 5 mg Q4H PRN Administration HYPERTENSION Vancomycin HCl 750 mg/ Sodium 250 mls @ 250 mls /hr 01/20/20 14:30 01/25/20 02:31 Chloride IV 250 mls/hr Q12H JOSELINE Administration Protocol Piperacillin Sod/T azobactam 50 mls @ 12.5 mls /hr 01/20/20 16:00 01/25/20 08:32 Sod 3.375 gm/ So dium Chloride IV 12.5 mls/hr Q8H JOSELINE Administration Protocol Levofloxacin/Dextr ose 750 mg in 150 mls @ 100 mls/hr 01/21/20 12:00 01/24/20 13:05 Levaquin-D5w IV Infused Q24H JOSELINE Infusion Protocol Sodium Chloride 1,000 mls @ 75 ml s/hr 01/20/20 15:30 01/21/20 19:08 Sodium Chloride 0.9% IV 75 mls/hr .[id number] JOSELINE Administration Fentanyl 1,000 mcg / Sodium 100 mls @ 0 mls/h r 01/22/20 02:15 01/24/20 19:30 Chloride IV 5 mcg/hr .Q0M JOSELINE 0.5 mls/hr Titration Protocol Per Protocol Midazolam HCl 100 mg/ Sodium 100 mls @ 0 mls/h r 01/22/20 10:30 01/24/20 20:00 Chloride IV 3 mg/hr .Q0M JOSELINE 3 mls/hr Titration Protocol Per Protocol Lorazepam 1 mg 01/21/20 19:20 01/24/20 16:57 Ativan IVP 1 mg Q8H PRN Administration Anxiety or agitat ion Methylprednisolone Sodium Succinate 40 mg 01/24/20 12:00 01/25/20 05:38 Solu-Medrol IVP 40 mg Q6H JOSELINE Administration Ondansetron HCl 4 mg 01/20/20 13:35 Zofran IVP Q6H PRN NAUSEA AND VOMITI NG Pantoprazole Sodiu m 40 mg 01/20/20 13:35 01/25/20 08:32 Protonix IVP 40 mg DAILY JOSELINE Administration No Known Allergies Allergy (Verified 01/20/20 09:41) Vitals/I&O/Wt Last Vital Signs Temp 97.9 F 01/25/20 04:00 Pulse 88 01/25/20 07:52 Resp 17 01/25/20 07:49 BP 154/72 01/25/20 06:00 Pulse Ox 96 01/25/20 07:49 01/24/20 01/25/20 01/25/20 22:59 06:59 14:59 Intake Total 401.94 / 720.84 750 / 1470.84 Output Total 950 / 1350 Balance -548.06 / -629.16 750 / 120.84 Weight last 48 hrs Weight 48.262 kg Weight 46.72 kg Physical Exam Const: COMMON NORMALS: no acute distress GENERAL APPEARANCE: patient mechanically ventilated NUTRITIONAL APPEARANCE: thin ORIENTATION/CONSCIOUSNESS: Yes Other orientation findings (sedated though arousable to verbal and tactile stimulation) HENMT: COMMON NORMALS: normocephalic and atraumatic HEAD & SCALP: normocephalic and atraumatic GENERAL EAR: hearing grossly impaired (very hard of hearing) OTHER: -ETT: 24 cm @ lip Eye: COMMON NORMALS: conjunctivae normal CONJUNCTIVA: Yes conjunctivae normal PUPIL: Yes Pinpoint pupils bilaterally Neck/C-Spine: COMMON NORMALS: full ROM GENERAL: Yes normal visual inspection and Yes trachea midline OTHER: -L IV Chest: CHEST: Yes Symmetrical chest wall rise Resp: COMMON NORMALS: No retractions and No use of accessory muscles EFFORT & INSPECTION: Yes symmetric chest movement and No tachypneic AUSCULTATION: diminished lung sounds bilateral OTHER: -coarse breath sounds bilaterally though equal air entry bilaterally, on vent support (40%/400/5) Cardio: COMMON NORMALS: regular rate, regular rhythm, S1 normal heart sound present, S2 normal heart sound present and No murmurs present (Cardio) RATE: regular rate RHYTHM: regular rhythm HEART SOUNDS: S1 normal heart sound present and S2 normal heart sound present OTHER: -normotensive GI: COMMON NORMALS: Normal to inspection, nondistended, normoactive bowel sounds present and Soft to palpation INSPECTION: Yes scaphoid AUSCULTATION: Yes normoactive bowel sounds PALPATION: Yes Soft to palpation : BLADDER/KIDNEY EXAM: Yes catheter in place Extremity: COMMON NORMALS: normal to inspection and no pedal edema NARRATIVE EXTREMITY EXAM: -feet are warm to touch, pulses are still diminished though easier to appreciate (doppler) GENERAL: Yes cyanosis (and diminished peripheral pulses (bilateral LEs)), Yes mottling and Yes pulses abnormal Neuro: COMMON NORMALS: moves all extremities, no focal motor deficits, no sensory deficits noted and gait normal OTHER: -Off sedation -arousable to painful, tactile and verbal stimulation, able to follow commands more consistently today. Psych: COMMON NORMALS: mental status grossly normal, Normal thought process present, cooperative, normal affect and speech normal SPEECH: Yes normal speech THOUGHT PROCESS: Normal thought process present OTHER: -sedated Skin: COMMON NORMALS: no rashes or lesions noted, no jaundice and no petechiae GENERAL SKIN EXAM: no rashes or lesions noted Urinary Catheter Management^: Smith: Cath Placed During This Visit: yes Urethral Indwelling: Yes Reason for Continuing Indwelling Catheter: Accurate Measurement of Urinary Output in Critically Ill Patients Urinary Catheter Date of Insertion: 01/20/20 Urinary Catheter Time of Insertion: 10:58 Data : 01/25/20 05:05 01/25/20 05:05 A&P Assessment and plan (1) Acute respiratory failure with hypoxia and hypercapnia: -noted significant hypercapnia and hypoxia on initial ABG, was reportedly conversant on arrival though altered so intubated in ED; weaned off vent yesterday (01/20) and due to noted decompensation overnight, was re-intubated -previously sedated with propofol; now on fentanyl due to question of propofol infusion syndrome -is a chronic smoker, has had emphysema for many years per brother -ABG with noted resolved hypercapnia and hypoxia (7.43/46.7/75.4); ETT-25 cm @ lip -daily ABG, CXR while on vent -CXR noted with LLL consolidation, atelectasis and L pleural effusion -on broad spectrum IV antibiotics (Vanc/Zosyn/Levaquin) -sputum cx-Moraxella catarrhalis, gram stain-GPC -blood cx: prelim negative -due to symptoms, tested for COVID-19, negative; off isolation precautions -bacterial antigens, MRSA, influenza screen, Legionella negative -diuresis as needed -wean when appropriate; ideally when patient is consistently following commands. Communication is challenging as patient is very hard of hearing, requested twin sister May Marilyn to come as patient is familiar with her and I anticipate that he will respond much better with family at bedside which should help with weaning and hopefully extubation process Status: Acute (2) Decreased responsiveness: -has had some generalized weakness, some noted confusion per family. Noted multifocal small vessel ischemic changes involving centrum semiovale, basal ganglia and thalamic lacunar infarcts as well as right occipital and posterior parietal lobes -Unable to assess neurological status due to current sedation -Unable to obtain MRI at this time as on vent support -Noted hypertensive urgency initially which is now resolved -Negative alcohol screen, UDS negative, negative salicylates, acetaminophen -carotid US-16-49% stenosis on R,mild to moderate diffuse plaques in the common carotid arteries bilaterally. Will likely need CTA for further evaluation given evidence of CVA -Echo: EF=62%, trace TR -on ASA, statin -normal lipid panel, A1c, TSH Status: Acute (3) Acute kidney failure: -No baseline; stable renal function -continue to monitor renal function closely, avoid nephrotoxins, renally dose meds -Has Smith catheter in place, monitor urine output, assess daily for removal Status: Acute Qualifiers: Acute renal failure type: unspecified Qualified Code(s): N17.9 - Acute kidney failure, unspecified (4) Hypertensive urgency: -No prior reported history of hypertension; this could be due to acute illness and possibly due to stroke as mentioned above as well as paralytic with no sedation -Close monitoring of vital signs; off permissive hypertension x 24 hours -normotensive Status: Resolved (5) Smoker: -2 PPD x > 30 yrs Status: Chronic (6) COPD (chronic obstructive pulmonary disease): -acute COPD exacerbation; on vent support -on steroids, empiric antibiotics -close monitoring of respiratory status Status: Acute Qualifiers: COPD type: COPD with acute exacerbation Qualified Code(s): J44.1 - Chronic obstructive pulmonary disease with (acute) exacerbation (7) Peripheral vascular disease: -noted diminished peripheral pulses even with doppler, cool to touch and cyanotic toes -risk factors for PVD: smoker, EtOH use -Venous duplex negative for DVT bilaterally. -Arterial studies show total occlusion of the left iliac, femoral and popliteal artery with collateral filling of the posterior tibial and dorsalis pedis arteries; abnormal resting RAJINDER on the right suggestive of severe PAD, possible total occlusion of the distal SFA. Will likely need CTA with runoff for further evaluation. -on ASA, statin -normal lipid panel, A1c Status: Suspected (8) Elevated LFTs: -Has reported history of chronic alcohol abuse, reportedly has been abstinent x 3 years, negative alcohol screen, negative urine drug screen -No apparent ascites on examination, noted cirrhosis on CT abdomen and pelvis -Trend LFTs, negative acute hepatitis panel; LFTs improving Status: Acute (9) Chronic back pain: Status: Chronic Qualifiers: Back pain location: low back pain Back pain laterality: unspecified Sciatica presence: unspecified whether sciatica present Qualified Code(s): M54.5 - Low back pain; G89.29 - Other chronic pain Additional A&P Information -at least moderate protein calorie malnutrition: BMI-17 kg/m2 -Chronic EtOH abuse; negative alcohol screen, questionable if recent use though per brother patient has been abstinent x 3 yrs. Banana bag given in ED -Thrombocytopenia; stable platelet count even with ASA and heparin; continue to monitor -GI ppx with PPI -DVT ppx with heparin -Dispo: home -Code status: FULL code -ICU care due to vent support Attestations Medical Necessity Statement*: Patient requires hospitalization for continued management of acute respiratory failure, on vent support, broad-spectrum IV antibiotics and IV steroids, weaning trial today. Time Spent in Patient Care: 16 - 35 minutes (>than 50% of time spent in counselling and/or direct pt care on unit) . Critical Care Time: The high probability of a clinically significant, sudden or life threatening deterioration of the patient's [cardiovascular, respiratory] system(s) required my full and direct attention, intervention and personal management. The critical care time is as shown. 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
--- NOTE | 2020-01-25 10:46 | PC.SOCIAL ---
IMM Update Pg 2 of IMM updated and left at bedside. Initialed, dated, timed and placed in chart.
[2020-01-25] MEDS: levofloxacin-dextrose 5 % 750 MG/150 ML PREMIX 100 MG IV (12:16)
[2020-01-25 14:10] LABS: ABG PCO2 43.4 mmHg (35-45); ABG PH Result 7.48 (7.35-7.45); Arterial Blood Gas Hematocrit 39.7 % (42-52); Base Excess ABG 7.9 mmol/L (-2.0-2.0); Blood Gas Allen Test Pos; Blood Gas Sample Site Brachial, left; Blood Gas Sample Type Arterial; HCO3 ABG 32.4 mmol/L (22-26); Oxygen Device VENT; PO2 ABG 68.3 mmHg (80.0-100.0)
[2020-01-25] MEDS: LORazepam 2 mg/mL INJ 1 mL 1 MG IVP (19:30)
--- NOTE | 2020-01-25 20:11 | PC.NURSE ---
Shift summary: Pt's sister came in to sit with him during the vent weaning process at Dr Mccord's request so pt would not be so scared and anxious. He does not like oral care. He does reach for the ET tube every chance he gets. He failed his weaning trail, versed restarted at 2mg and fentanyl at 25-50mcg restarted for his comfort. Urine output low , 350 ml of dark yellow urine.
[2020-01-25] MEDS: atorvastatin 40 mg Tablet OG-TUBE (20:43)
[2020-01-26] VITALS (39 sets, daily range): BP systolic 128–202; BP diastolic 63–100; PULSE 58–109; RESP 12–28; TEMP 36.4–36.8; O2SAT 92–100
[2020-01-26] MEDS: heparin 5,000 unit/mL INJ 1 mL 5000 UNIT SUBCUT ×2 (01:41→13:57)
[2020-01-26 02:25] LABS: Vancomycin Trough 13.3 ug/mL (10-15)
[2020-01-26] MEDS: vancomycin 750 MG in sodium chloride 0.9% 250 ML 250 MG IV ×2 (02:35→13:57)
[2020-01-26] MEDS: ipratropium-albuterol 3 mL Neb INHALATION ×5 (03:25→20:38)
[2020-01-26] MEDS: LORazepam 2 mg/mL INJ 1 mL 1 MG IVP ×2 (05:23→13:57)
[2020-01-26] MEDS: hyDRALAzine 20 mg/mL INJ 1 mL 5 MG IVP (05:30)
[2020-01-26] MEDS: piperacillin-tazobactam 3.375 GM in sodium chloride 0.9% (plus) 50 ML IV ×3 (08:44→23:36)
[2020-01-26] MEDS: pantoprazole 40 mg SDV IVP (08:45)
[2020-01-26] MEDS: aspirin 325 mg Tablet OG-TUBE (08:45)
[2020-01-26] MEDS: levofloxacin-dextrose 5 % 750 MG/150 ML PREMIX 100 MG IV (12:06)
--- NOTE | 2020-01-26 13:43 | PM.PN ---
Subjective Subjective: Interval history: Patient seen and examined, brother at bedside, patient awake, alert, off sedation. Due to little better with his weaning trial today but fatigues easily and noted to have low tidal volume, high RSBI. Hemodynamically stable, afebrile. Will start on tube feeds today. Had 400 mL urine output overnight. Medications: Reviewed: Yes Medication Review Details: Active Medications Generic Name Dose Route Start Last Admin Trade Name Freq PRN Reason Stop Dose Admin Acetaminophen 650 mg 01/20/20 13:35 Tylenol WA Q6H PRN FEVER Albuterol/Ipratrop ium 3 ml 01/23/20 00:00 01/26/20 11:15 Duoneb INHALATION 3 ml Q4H.RESPIRATORY S CH Administration Aspirin 325 mg 01/21/20 10:10 01/26/20 08:45 Aspirin OG-TUBE 325 mg DAILY JOSELINE Administration Atorvastatin Calci um 40 mg 01/23/20 21:00 01/25/20 20:43 Lipitor OG-TUBE 40 mg BEDTIME JOSELINE Administration Atropine Sulfate 4 drop 01/24/20 11:54 Isopto Atropine SUBLINGUAL Q2H PRN SECRETIONS Heparin Sodium (Be ef Lung) 5,000 unit 01/20/20 14:00 01/26/20 01:41 Heparin SUBCUT 5,000 unit Q12H JOSELINE Administration Hydralazine HCl 5 mg 01/20/20 20:47 01/26/20 05:30 Apresoline IVP 5 mg Q4H PRN Administration HYPERTENSION Vancomycin HCl 750 mg/ Sodium 250 mls @ 250 mls /hr 01/20/20 14:30 01/26/20 03:40 Chloride IV Infused Q12H JOSELINE Infusion Protocol Piperacillin Sod/T azobactam 50 mls @ 12.5 mls /hr 01/20/20 16:00 01/26/20 12:50 Sod 3.375 gm/ So dium Chloride IV Infused Q8H JOSELINE Infusion Protocol Levofloxacin/Dextr ose 750 mg in 150 mls @ 100 mls/hr 01/21/20 12:00 01/26/20 12:06 Levaquin-D5w IV 100 mls/hr Q24H JOSELINE Administration Protocol Sodium Chloride 1,000 mls @ 75 ml s/hr 01/20/20 15:30 01/21/20 19:08 Sodium Chloride 0.9% IV 75 mls/hr .[id number] JOSELINE Administration Fentanyl 1,000 mcg / Sodium 100 mls @ 0 mls/h r 01/22/20 02:15 01/26/20 12:51 Chloride IV 25 mcg/hr .Q0M JOSELINE 2.5 mls/hr Titration Protocol Per Protocol Midazolam HCl 100 mg/ Sodium 100 mls @ 0 mls/h r 01/22/20 10:30 01/26/20 07:00 Chloride IV Infused .Q0M JOSELINE Titration Protocol Per Protocol Lorazepam 1 mg 01/21/20 19:20 01/26/20 05:23 Ativan IVP 1 mg Q8H PRN Administration Anxiety or agitat ion Methylprednisolone Sodium Succinate 40 mg 01/24/20 12:00 01/26/20 12:06 Solu-Medrol IVP 40 mg Q6H JOSELINE Administration Ondansetron HCl 4 mg 01/20/20 13:35 Zofran IVP Q6H PRN NAUSEA AND VOMITI NG Pantoprazole Sodiu m 40 mg 01/20/20 13:35 01/26/20 08:45 Protonix IVP 40 mg DAILY JOSELINE Administration No Known Allergies Allergy (Verified 01/20/20 09:41) Vitals/I&O/Wt Last Vital Signs Temp 97.7 F 01/26/20 12:00 Pulse 73 01/26/20 13:00 Resp 12 01/26/20 13:08 BP 128/63 01/26/20 13:00 Pulse Ox 95 01/26/20 13:00 01/25/20 01/26/20 01/26/20 22:59 06:59 14:59 Intake Total 411.86 / 651.86 300 / 951.86 120.808 / 120.808 Output Total 350 / 350 400 / 750 200 / 200 Balance 61.86 / 301.86 -100 / 201.86 -79.192 / -79.192 Weight last 48 hrs Weight 43.953 kg Physical Exam Const: COMMON NORMALS: no acute distress GENERAL APPEARANCE: patient mechanically ventilated NUTRITIONAL APPEARANCE: thin ORIENTATION/CONSCIOUSNESS: Yes Other orientation findings (sedated though arousable to verbal and tactile stimulation) HENMT: COMMON NORMALS: normocephalic and atraumatic HEAD & SCALP: normocephalic and atraumatic GENERAL EAR: hearing grossly impaired (very hard of hearing) OTHER: -ETT: 24 cm @ lip Eye: COMMON NORMALS: conjunctivae normal CONJUNCTIVA: Yes conjunctivae normal PUPIL: Yes Pinpoint pupils bilaterally Neck/C-Spine: COMMON NORMALS: full ROM GENERAL: Yes normal visual inspection and Yes trachea midline Chest: CHEST: Yes Symmetrical chest wall rise Resp: COMMON NORMALS: No retractions and No use of accessory muscles EFFORT & INSPECTION: Yes symmetric chest movement and No tachypneic AUSCULTATION: diminished lung sounds bilateral OTHER: -coarse breath sounds bilaterally though equal air entry bilaterally, on vent (30%/400/5) Cardio: COMMON NORMALS: regular rate, regular rhythm, S1 normal heart sound present, S2 normal heart sound present and No murmurs present (Cardio) RATE: regular rate RHYTHM: regular rhythm HEART SOUNDS: S1 normal heart sound present and S2 normal heart sound present OTHER: -normotensive GI: COMMON NORMALS: Normal to inspection, nondistended, normoactive bowel sounds present and Soft to palpation INSPECTION: Yes scaphoid AUSCULTATION: Yes normoactive bowel sounds PALPATION: Yes Soft to palpation : BLADDER/KIDNEY EXAM: Yes catheter in place Extremity: COMMON NORMALS: normal to inspection and no pedal edema NARRATIVE EXTREMITY EXAM: -feet are warm to touch, pulses are still diminished though easier to appreciate (doppler) GENERAL: Yes cyanosis (and diminished peripheral pulses (bilateral LEs)), Yes mottling and Yes pulses abnormal Neuro: COMMON NORMALS: moves all extremities, no focal motor deficits, no sensory deficits noted and gait normal OTHER: -Off sedation -arousable to painful, tactile and verbal stimulation, able to follow commands more consistently today. Psych: COMMON NORMALS: mental status grossly normal, Normal thought process present, cooperative, normal affect and speech normal SPEECH: Yes normal speech THOUGHT PROCESS: Normal thought process present Skin: COMMON NORMALS: no rashes or lesions noted, no jaundice and no petechiae GENERAL SKIN EXAM: no rashes or lesions noted Urinary Catheter Management^: Smith: Cath Placed During This Visit: yes Urethral Indwelling: Yes Reason for Continuing Indwelling Catheter: Accurate Measurement of Urinary Output in Critically Ill Patients Urinary Catheter Date of Insertion: 01/20/20 Urinary Catheter Time of Insertion: 10:58 Data : 01/25/20 05:05 01/25/20 05:05 Micro: Microbiology 01/20/20 09:35 Blood Culture - Final Blood NO GROWTH AFTER 5 DAYS 01/20/20 09:28 Blood Culture - Final Blood NO GROWTH AFTER 5 DAYS A&P Assessment and plan (1) Acute respiratory failure with hypoxia and hypercapnia: -noted significant hypercapnia and hypoxia on initial ABG, was reportedly conversant on arrival though altered so intubated in ED; weaned off vent yesterday (01/20) and due to noted decompensation overnight, was re-intubated -previously sedated with propofol; now on fentanyl due to question of propofol infusion syndrome -is a chronic smoker, has had emphysema for many years per brother -ABG with noted resolved hypercapnia and hypoxia (7.43/46.7/75.4); ETT-24 cm @ lip -daily ABG, CXR while on vent -CXR noted with LLL consolidation, atelectasis and L pleural effusion -on broad spectrum IV antibiotics (Vanc/Zosyn/Levaquin) -sputum cx-Moraxella catarrhalis, gram stain-GPC -blood cx: prelim negative -due to symptoms, tested for COVID-19, negative; off isolation precautions -bacterial antigens, MRSA, influenza screen, Legionella negative -diuresis as needed -wean when appropriate. Communication has been challenging as patient is very hard of hearing, requested family to be present as patient gets quite anxious and I anticipate that he will respond much better with family at bedside which should help with weaning and hopefully extubation process. So far has failed weaning trial x 3 though did better today compared to yesterday. Will try again tomorrow. Discussed with family that if patient continues to fail weaning trial may need to discuss tracheostomy placement which per the indication patient would not be in favor of versus extubation with understanding that patient may not do well thereafter Status: Acute (2) Decreased responsiveness: -has had some generalized weakness, some noted confusion per family. Noted multifocal small vessel ischemic changes involving centrum semiovale, basal ganglia and thalamic lacunar infarcts as well as right occipital and posterior parietal lobes -Unable to assess neurological status due to current sedation -Unable to obtain MRI at this time as on vent support -Noted hypertensive urgency initially which is now resolved -Negative alcohol screen, UDS negative, negative salicylates, acetaminophen -carotid US-16-49% stenosis on R,mild to moderate diffuse plaques in the common carotid arteries bilaterally. Will likely need CTA for further evaluation given evidence of CVA -Echo: EF=62%, trace TR -on ASA, statin -normal lipid panel, A1c, TSH Status: Acute (3) Acute kidney failure: -No baseline; stable renal function -continue to monitor renal function closely, avoid nephrotoxins, renally dose meds -Has Smith catheter in place, monitor urine output, assess daily for removal Status: Acute Qualifiers: Acute renal failure type: unspecified Qualified Code(s): N17.9 - Acute kidney failure, unspecified (4) Hypertensive urgency: -No prior reported history of hypertension; this could be due to acute illness and possibly due to stroke as mentioned above as well as paralytic with no sedation -Close monitoring of vital signs; off permissive hypertension x 24 hours -normotensive Status: Resolved (5) Smoker: -2 PPD x > 30 yrs Status: Chronic (6) COPD (chronic obstructive pulmonary disease): -acute COPD exacerbation; on vent support -on steroids, empiric antibiotics -close monitoring of respiratory status Status: Acute Qualifiers: COPD type: COPD with acute exacerbation Qualified Code(s): J44.1 - Chronic obstructive pulmonary disease with (acute) exacerbation (7) Peripheral vascular disease: -noted diminished peripheral pulses even with doppler, cool to touch and cyanotic toes -risk factors for PVD: smoker, EtOH use -Venous duplex negative for DVT bilaterally. -Arterial studies show total occlusion of the left iliac, femoral and popliteal artery with collateral filling of the posterior tibial and dorsalis pedis arteries; abnormal resting RAJINDER on the right suggestive of severe PAD, possible total occlusion of the distal SFA. Will likely need CTA with runoff for further evaluation. -on ASA, statin -normal lipid panel, A1c Status: Suspected (8) Elevated LFTs: -Has reported history of chronic alcohol abuse, reportedly has been abstinent x 3 years, negative alcohol screen, negative urine drug screen -No apparent ascites on examination, noted cirrhosis on CT abdomen and pelvis -Trend LFTs, negative acute hepatitis panel; LFTs improving Status: Acute (9) Chronic back pain: Status: Chronic Qualifiers: Back pain location: low back pain Back pain laterality: unspecified Sciatica presence: unspecified whether sciatica present Qualified Code(s): M54.5 - Low back pain; G89.29 - Other chronic pain Additional A&P Information -at least moderate protein calorie malnutrition: BMI-16 kg/m2 -Chronic EtOH abuse; negative alcohol screen, questionable if recent use though per brother patient has been abstinent x 3 yrs. Banana bag given in ED -Thrombocytopenia; stable platelet count even with ASA and heparin; continue to monitor -start on tube feeds -GI ppx with PPI -DVT ppx with heparin -Dispo: home vs. SNF pending clinical improvement -Code status: FULL code though per discussion with family patient would not want long-term life support or aggressive management. We will need to revisit this based on patient's progress -ICU care due to vent support Attestations Medical Necessity Statement*: Patient requires hospitalization for continued management of acute respiratory failure, remains on vent support, failed weaning trial today, status post CVA management. Time Spent in Patient Care: 16 - 35 minutes (>than 50% of time spent in counselling and/or direct pt care on unit). Critical Care Time: The high probability of a clinically significant, sudden or life threatening deterioration of the patient's [cardiovascular, respiratory] system(s) required my full and direct attention, intervention and personal management. The critical care time is as shown. This time is in addition to time spent performing any reported procedures but includes the following: [x] Data and vital sign review and interpretation [x] Patient assessment, examination and intervention [x] Documentation [x] Medication orders and management Critical Care Time (min): 25 Coding Level of Care Code Acute Exercise Physiologist Certified for g Fwd Diagnoses Acute respiratory failure with hypoxia and hypercapnia J96.01; J96.02 Decreased responsiveness R41.89 Acute kidney failure N17.9 Acute renal failure type: unspecified Hypertensive urgency I16.0 Smoker F17.200 COPD (chronic obstructive pulmonary disease) J44.1 COPD type: COPD with acute exacerbation Peripheral vascular disease I73.9 Elevated LFTs R79.89 Chronic back pain M54.5; G89.29 Back pain location: low back pain Back pain laterality: unspecified Sciatica presence: unspecified whether sciatica present
--- NOTE | 2020-01-26 16:44 | PC.NURSE ---
i RESTARTED VERSED DRIP AT 2MG/HR AT THIS TIME. THE MAR SHOWS THE BAG EMPTY BUT I HAVE AT LEAST 20ML REMAINING IN BAG THAT WAS INFUSING AT 0700 WHEN I STOPPED IT THIS MORNING.
[2020-01-26] MEDS: atorvastatin 40 mg Tablet OG-TUBE (20:10)
[2020-01-27] VITALS (39 sets, daily range): BP systolic 135–176; BP diastolic 65–95; PULSE 61–85; RESP 10–32; TEMP 36.2–36.8; O2SAT 93–100
[2020-01-27] MEDS: sodium chloride 0.9% (100 ml) 100 ML
[2020-01-27] MEDS: ipratropium-albuterol 3 mL Neb INHALATION ×7 (00:33→23:32)
[2020-01-27] MEDS: heparin 5,000 unit/mL INJ 1 mL 5000 UNIT SUBCUT ×2 (01:55→14:06)
[2020-01-27] MEDS: vancomycin 750 MG in sodium chloride 0.9% 250 ML 250 MG IV ×2 (03:18→14:05)
[2020-01-27 04:03] LABS: Hematocrit 40.3 % (42.0-52.0); Hemoglobin 12.4 g/dL (11.7-16.6); Lymphocytes # 0.4 10^3/uL (0.8-4.8); Lymphocytes % 4.1 %; Mean Corpuscular HGB Conc 30.8 g/dL (30.0-36.0); Mean Corpuscular Hemoglobin 28.2 pg (28.0-34.0); Mean Corpuscular Volume 91.8 fL (80-94); Mean Platelet Volume 11.7 fL (7.4-10.4); Monocytes # 0.5 10^3/uL (0.2-0.9); Monocytes % 5.8 %; Neutrophils # 8.4 10^3/uL (1.8-7.7); Neutrophils % 89.7 %; Nucleated Red Blood Cells % 0 %; Platelet Count 122 10^3/cmm (130-400); Red Blood Count 4.39 10^6/uL (4.1-5.3); Red Cell Distribution Width 14.6 % (12.1-15.1); White Blood Count 9.3 10^3/uL (4.0-10.0)
[2020-01-27 04:18] LABS: Alanine Aminotransferase 87 U/L (0-41); Albumin Level 3.1 g/dL (3.5-5.2); Alkaline Phosphatase 47 IU/L (40-130); Anion Gap 16.6 (5-19); Aspartate Amino Transferase 82 U/L (0-40); Blood Urea Nitrogen 33 mg/dL (8-23); Calcium 8.8 mg/dL (8.5-10.5); Carbon Dioxide 26 mmol/L (22-29); Chloride 102 mmol/L (98-107); Globulin 2.8 g/dL (1.3-4.6); Glomerular Filtration Rate 112.8 mL/min (90-130); Glucose 140 mg/dL (65-115); Osmolality Calculated 292 mOsm/kg (285-295); Potassium 3.6 mmol/L (3.5-5.1); Sodium 141 mmol/L (136-145); Total Bilirubin 0.8 mg/dL (0.15-1.2); Total Protein 5.9 g/dL (6.6-8.7)
--- NOTE | 2020-01-27 06:00 | XRR_ITS ---
PROCEDURE INFORMATION: Exam: XR Chest, 1 View Exam date and time: 01/27/2020 5:34 AM Age: 64 years old Clinical indication: Shortness of breath; Additional info: On vent support TECHNIQUE: Imaging protocol: XR of the chest Views: Frontal portable supine view of the chest. COMPARISON: CR XR chest 1V portable [id number] 01/25/2020 4:31 AM FINDINGS: Tubes, catheters and devices: The endotracheal tube tip is approximately 4 cm above the alvaro. The feeding tube enters the stomach with the tip off the limits of the image. EKG leads are present overlying the chest. Lungs: Improved left basilar pulmonary subsegmental/partial atelectasis. The pulmonary vasculature is normal. Stable small bilateral calcified pulmonary granulomata. The pulmonary vasculature is normal. Pleural space: Stable small right pleural effusion. No pneumothorax. Heart/Mediastinum: The heart is normal in size and contour. Vasculature: Mild aortic arch atherosclerotic calcification without ectasia. Bones/joints: Stable. Other findings: Mild pulmonary hyperexpansion. Mediastinum: Stable. XR/XR chest 1V portable [id number] IMPRESSION: 1. Mild pulmonary hyperexpansion, stable. 2. Improved left basilar pulmonary subsegmental/partial atelectasis. 3. Stable small right pleural effusion.
[2020-01-27 06:40] LABS: ABG PCO2 37.4 mmHg (35-45); Arterial Blood Gas Hematocrit 39.9 % (42-52); Base Excess ABG 5.6 mmol/L (-2.0-2.0); Blood Gas Sample Site Brachial, right; Blood Gas Sample Type Arterial; Oxygen Device VENT; PO2 ABG 85.7 mmHg (80.0-100.0)
[2020-01-27] MEDS: piperacillin-tazobactam 3.375 GM in sodium chloride 0.9% (plus) 50 ML IV ×2 (07:52→17:05)
--- NOTE | 2020-01-27 09:27 | P.PN_ITS ---
Subjective Subjective: Interval history: Had 200 mL urine output overnight, afebrile, hemodynamically stable, ABG shows resolved hypercapnia and no hypoxia, weaning trial again today. Stable platelet count, improving LFTs. Chest x-ray reviewed. Started on tube feeds yesterday. Seems to be tolerating this well. Medications: Reviewed: Yes Medication Review Details: Active Medications Generic Name Dose Route Start Last Admin Trade Name Freq PRN Reason Stop Dose Admin Acetaminophen 650 mg 01/20/20 13:35 Tylenol AR Q6H PRN FEVER Albuterol/Ipratrop ium 3 ml 01/23/20 00:00 01/27/20 08:03 Duoneb INHALATION 3 ml Q4H.RESPIRATORY S CH Administration Aspirin 325 mg 01/21/20 10:10 01/26/20 08:45 Aspirin OG-TUBE 325 mg DAILY JOSELINE Administration Atorvastatin Calci um 40 mg 01/23/20 21:00 01/26/20 20:10 Lipitor OG-TUBE 40 mg BEDTIME JOSELINE Administration Atropine Sulfate 4 drop 01/24/20 11:54 Isopto Atropine SUBLINGUAL Q2H PRN SECRETIONS Heparin Sodium (Be ef Lung) 5,000 unit 01/20/20 14:00 01/27/20 01:55 Heparin SUBCUT 5,000 unit Q12H JOSELINE Administration Hydralazine HCl 5 mg 01/20/20 20:47 01/26/20 05:30 Apresoline IVP 5 mg Q4H PRN Administration HYPERTENSION Vancomycin HCl 750 mg/ Sodium 250 mls @ 250 mls /hr 01/20/20 14:30 01/27/20 04:20 Chloride IV Infused Q12H JOSELINE Infusion Protocol Piperacillin Sod/T azobactam 50 mls @ 12.5 mls /hr 01/20/20 16:00 01/27/20 07:52 Sod 3.375 gm/ So dium Chloride IV 100 mls/hr Q8H JOSELINE Administration Protocol Levofloxacin/Dextr ose 750 mg in 150 mls @ 100 mls/hr 01/21/20 12:00 01/26/20 13:48 Levaquin-D5w IV Infused Q24H JOSELINE Infusion Protocol Sodium Chloride 1,000 mls @ 75 ml s/hr 01/20/20 15:30 01/21/20 19:08 Sodium Chloride 0.9% IV 75 mls/hr .[id number] JOSELINE Administration Fentanyl 1,000 mcg / Sodium 100 mls @ 0 mls/h r 01/22/20 02:15 01/27/20 05:59 Chloride IV 25 mcg/hr .Q0M JOSELINE 2.5 mls/hr Administration Protocol Per Protocol Midazolam HCl 100 mg/ Sodium 100 mls @ 0 mls/h r 01/22/20 10:30 01/27/20 05:59 Chloride IV 2 mg/hr .Q0M JOSELINE 2 mls/hr Administration Protocol Per Protocol Lorazepam 1 mg 01/21/20 19:20 01/26/20 13:57 Ativan IVP 1 mg Q8H PRN Administration Anxiety or agitat ion Methylprednisolone Sodium Succinate 40 mg 01/24/20 12:00 01/27/20 05:50 Solu-Medrol IVP 40 mg Q6H JOSELINE Administration Ondansetron HCl 4 mg 01/20/20 13:35 Zofran IVP Q6H PRN NAUSEA AND VOMITI NG Pantoprazole Sodiu m 40 mg 01/20/20 13:35 01/26/20 08:45 Protonix IVP 40 mg DAILY JOSELINE Administration No Known Allergies Allergy (Verified 01/20/20 09:41) Vitals/I&O/Wt Last Vital Signs Temp 97.9 F 01/27/20 08:00 Pulse 78 01/27/20 08:08 Resp 23 H 01/27/20 08:04 BP 142/72 01/27/20 08:00 Pulse Ox 96 01/27/20 08:04 01/26/20 01/27/20 01/27/20 22:59 06:59 14:59 Intake Total 421.625 / 694.808 818.492 / 1513.300 Output Total 100 / 300 200 / 500 50 / 50 Balance 321.625 / 394.808 618.492 / 1013.300 -50 / -50 Weight last 48 hrs Weight 44.86 kg Weight 43.953 kg Physical Exam Const: COMMON NORMALS: no acute distress GENERAL APPEARANCE: patient me chanically ventilated NUTRITIONAL APPEARANCE: thin ORIENTA TION/CONSCIOUSNESS: Yes Other orientation findings (sedated though arousable to verbal and tactile stimulation) HENMT: COMMON NORMALS: normocephalic and atraumatic HEAD & SCALP: normo cephalic and atraumatic GENERAL EAR: hearing grossly impaired (very hard of hearing) OTHER: -ETT: 24 cm @ lip Eye: COMMON NORMALS: conjunctivae normal CONJUNCTIVA: Yes conjunctivae normal PUPIL: Yes Pinpoint pupils bilaterally Neck/C-Spine: COMMON NORMALS: full ROM GENERAL: Yes normal visual inspection and Yes trachea midline Chest: CHEST: Yes Symmetrical chest wall rise Resp: COMMON NORMALS: No retractions and No use of accessory muscles EFFORT & INSPECTION: Yes symmetric chest movement and No tachypneic AUSCULTATION: diminished lung sounds bilateral OTHER: -coarse breath sounds bilaterally though equal air entry bilaterally, on vent (30%/400/5) Cardio: COMMON NORMALS: regular rate, regular rhythm, S1 normal heart sound present, S2 normal heart sound present and No murmurs present (Cardio) RATE: regular rate RHYTHM: regular rhythm HEART SOUNDS: S1 normal heart sound present and S2 normal heart sound present OTHER: -normotensive GI: COMMON NORMALS: Normal to inspection, nondistended, normoactive bowel s ounds present and Soft to palpation INSPECTION: Yes scaphoid AUSCULTATION: Yes normoactive bowel sounds PALPATION: Yes Soft to palpation : BLADDER/KIDNEY EXAM: Yes catheter in place Extremity: COMMON NORMALS: normal to inspection and no pedal edema NARRATIVE EXTREMITY EXAM: -feet are warm to touch, pulses are still diminished though easier to appreciate (doppler) GENERAL: Yes cyanosis (and diminished peripheral pulses (bilateral LEs)), Yes mottling and Yes pulses abnormal Neuro: COMMON NORMALS: moves all extremities, no focal motor deficits, no sensory deficits noted and gait normal OTHER: -arousable to painful, tactile and verbal stimulation, able to follow commands more consistently today. Psych: COMMON NORMALS: cooperative MOOD & AFFECT: Yes anxious Skin: COMMON NORMALS: no rashes or lesions noted, no jaundice and no petechiae GENERAL SKIN EXAM: no rashes or lesions noted Urinary Catheter Management^: Smith: Cath Placed During This Visit: yes Urethral Indwelling: Yes Reason for Continuing Indwelling Catheter: Accurate Measurement of Urinary Output in Critically Ill Patients Urinary Catheter Date of Insertion: 01/20/20 Urinary Catheter Time of Insertion: 10:58 Data : 01/27/20 03:22 01/27/20 03:22 A&P Assessment and plan (1) Acute respiratory failure with hypoxia and hypercapnia: -noted significant hypercapnia and hypoxia on initial ABG, was reportedly conversant on arrival though altered so intubated in ED; weaned off vent yesterday (01/20) and due to noted decompensation overnight, was re-intubated -previously sedated with propofol; now on fentanyl due to question of propofol infusion syndrome -is a chronic smoker, has had emphysema for many years per brother -ABG with noted resolved hypercapnia and hypoxia (7.50/37.4/85.7); ETT-24 cm @ lip -daily ABG, CXR while on vent -CXR noted with LLL consolidation, atelectasis and L pleural effusion -on broad spectrum IV antibiotics (Vanc/Zosyn/Levaquin) -sputum cx-Moraxella catarrhalis, gram stain-GPC -blood cx: negative -due to symptoms, tested for COVID-19, negative; off isolation precautions -bacterial antigens, MRSA, influenza screen, Legionella negative -diuresis as needed -weaning trial ongoing. Communication has been challenging as patient is very hard of hearing, requested family to be present as patient gets quite anxious and I anticipate that he will respond much better with family at bedside which should help with weaning and hopefully extubation process. So far has failed weaning trial x 3 though did better today compared to yesterday. Will try again today. Discussed with family that if patient continues to fail weaning trial may need to discuss tracheostomy placement which per the indication patient would not be in favor of versus extubation with understanding that patient may not do well thereafter Status: Acute (2) Decreased responsiveness: -has had some generalized weakness, some noted confusion per family. Noted multifocal small vessel ischemic changes involving centrum semiovale, basal ganglia and thalamic lacunar infarcts as well as right occipital and posterior parietal lobes -Unable to assess neurological status due to current sedation -Unable to obtain MRI at this time as on vent support -Noted hypertensive urgency initially which is now resolved -Negative alcohol screen, UDS negative, negative salicylates, acetaminophen -carotid US-16-49% stenosis on R,mild to moderate diffuse plaques in the common carotid arteries bilaterally. Will likely need CTA for further evaluation given evidence of CVA -Echo: EF=62%, trace TR -on ASA, statin -normal lipid panel, A1c, TSH Status: Acute (3) Acute kidney failure: -No baseline; stable renal function -continue to monitor renal function closely, avoid nephrotoxins, renally dose meds -Has Smith catheter in place, monitor urine output, assess daily for removal Status: Acute Qualifiers: Acute renal failure type: unspecified Qualified Code(s): N17.9 - Acute kidney failure, unspecified (4) Hypertensive urgency: -No prior reported history of hypertension; this could be due to acute illness and possibly due to stroke as mentioned above as well as paralytic with no sedation -Close monitoring of vital signs; off permissive hypertension x 24 hours -normotensive Status: Resolved (5) Smoker: -2 PPD x > 30 yrs Status: Chronic (6) COPD (chronic obstructive pulmonary disease): -acute COPD exacerbation; on vent support -on steroids, empiric antibiotics -close monitoring of respiratory status Status: Acute Qualifiers: COPD type: COPD with acute exacerbation Qualified Code(s): J44.1 - Chronic obstructive pulmonary disease with (acute) exacerbation (7) Peripheral vascular disease: -noted diminished peripheral pulses even with doppler, cool to touch and cyanotic toes -risk factors for PVD: smoker, EtOH use -Venous duplex negative for DVT bilaterally. -Arterial studies show total occlusion of the left iliac, femoral and popliteal artery with collateral filling of the posterior tibial and dorsalis pedis arter ies; abnormal resting RAJINDER on the right suggestive of severe PAD, possible total occlusion of the distal SFA. Will likely need CTA with runoff for further evaluation. -on ASA, statin -normal lipid panel, A1c Status: Suspected (8) Elevated LFTs: -Has reported history of chronic alcohol abuse, reportedly has been ab stinent x 3 years, negative alcohol screen, negative urine drug screen -No apparent ascites on examination, noted cirrhosis on CT abdomen and pelvis -Trend LFTs, negative acute hepatitis panel; LFTs improving Status: Acute (9) Chronic back pain: Status: Chronic Qualifiers: Back pain location: low back pain Back pain laterality: unspecified Sciatica presence: unspecified whether sciatica present Qualified Code(s): M54.5 - Low back pain; G89.29 - Other chronic pain Additional A&P Information -at least moderate protein calorie malnutrition: BMI-16 kg/m2 -Chronic EtOH abuse; negative alcohol screen, questionable if recent use though per brother patient has been abstinent x 3 yrs. Banana bag given in ED -Thrombocytopenia; stable platelet count even with ASA and heparin; continue to monitor -start on tube feeds -GI ppx with PPI -DVT ppx with heparin -Dispo: home vs. SNF pending clinical improvement -Code status: FULL code though per discussion with family patient would not want long-term life support or aggressive management. We will need to revisit this based on patient's progress -ICU care due to vent support Attestations Medical Necessity Statement*: Patient requires hospitalization for continued management of acute respiratory failure, on vent support, weaning trial today. Time Spent in Patient Care: 16 - 35 minutes (>than 50% of time spent in counselling and/or direct pt care on unit) . Critical Care Time: The high probability of a clinically significant, sudden or life threatening deterioration of the patient's [respiratory] system(s) required my full and direct attention, intervention and personal management. The critical care time is as shown. 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
[2020-01-27] MEDS: aspirin 325 mg Tablet OG-TUBE (09:56)
[2020-01-27] MEDS: pantoprazole 40 mg SDV IVP (09:56)
--- NOTE | 2020-01-27 09:56 | DCPLANNER ---
Pg 2 of IM updated and reviewed with Spouse who is @ bedside. She was a little anxious about it thinking we were going to d/c him today, assured her that isn't the case. Copy provided.
[2020-01-27] MEDS: levofloxacin-dextrose 5 % 750 MG/150 ML PREMIX 100 MG IV (12:06)
--- NOTE | 2020-01-27 19:23 | PC.NURSE ---
Fentanyl Drip 70mL wasted and versed drip 85 mL wasted. Witnessed by Smiley Medrano RN.
[2020-01-27] MEDS: atorvastatin 40 mg Tablet PO (20:59)
[2020-01-28] VITALS (21 sets, daily range): BP systolic 151–186; BP diastolic 67–106; PULSE 23–91; RESP 14–30; TEMP 36.2–37.1; O2SAT 90–100
[2020-01-28] MEDS: heparin 5,000 unit/mL INJ 1 mL 5000 UNIT SUBCUT ×2 (01:48→17:37)
[2020-01-28] MEDS: ipratropium-albuterol 3 mL Neb INHALATION ×6 (03:27→23:55)
[2020-01-28 04:31] LABS: Basophils % 0.1 %; Hematocrit 43.9 % (42.0-52.0); Hemoglobin 13.3 g/dL (11.7-16.6); Lymphocytes # 0.3 10^3/uL (0.8-4.8); Lymphocytes % 3.3 %; Mean Corpuscular HGB Conc 30.3 g/dL (30.0-36.0); Mean Corpuscular Hemoglobin 28.5 pg (28.0-34.0); Mean Platelet Volume 10.8 fL (7.4-10.4); Monocytes # 0.6 10^3/uL (0.2-0.9); Monocytes % 6.3 %; Neutrophils # 8.2 10^3/uL (1.8-7.7); Neutrophils % 89.4 %; Nucleated Red Blood Cells % 0 %; Platelet Count 114 10^3/cmm (130-400); Red Blood Count 4.67 10^6/uL (4.1-5.3); Red Cell Distribution Width 14.3 % (12.1-15.1); White Blood Count 9.2 10^3/uL (4.0-10.0)
[2020-01-28 04:49] LABS: Alanine Aminotransferase 80 U/L (0-41); Albumin Level 3.3 g/dL (3.5-5.2); Alkaline Phosphatase 48 IU/L (40-130); Anion Gap 12.9 (5-19); Aspartate Amino Transferase 95 U/L (0-40); Blood Urea Nitrogen 30 mg/dL (8-23); Calcium 9.1 mg/dL (8.5-10.5); Carbon Dioxide 28 mmol/L (22-29); Chloride 104 mmol/L (98-107); Globulin 2.5 g/dL (1.3-4.6); Glomerular Filtration Rate 134.8 mL/min (90-130); Glucose 118 mg/dL (65-115); Osmolality Calculated 290 mOsm/kg (285-295); Potassium 3.9 mmol/L (3.5-5.1); Sodium 141 mmol/L (136-145); Total Bilirubin 0.8 mg/dL (0.15-1.2); Total Protein 5.8 g/dL (6.6-8.7)
--- NOTE | 2020-01-28 08:14 | P.PN_ITS ---
Subjective Subjective: Interval history: He is doing well. Knows he is in a hospital, but thought he was in [place]. Initially states date as 1919, but then corrects himself to 2019. Vitals/I&O/Wt Last Vital Signs Temp 97.2 F L 01/28/20 04:00 Pulse 23 L 01/28/20 07:52 Resp 18 01/28/20 07:52 BP 165/74 01/28/20 06:00 Pulse Ox 90 01/28/20 07:52 01/27/20 01/28/20 01/28/20 22:59 06:59 14:59 Intake Total 150 / 352.4 Output Total 80 / 580 475 / 1055 Balance 70 / -227.6 -475 / -702.6 Weight last 48 hrs Weight 43.409 kg Weight 44.86 kg Physical Exam Const: COMMON NORMALS: no acute distress and alert ORIENTATION/CONSCIOUSNESS: Yes oriented to person and Yes oriented to time OTHER: Oriented to being in the hospital, but initially believed that he was in [place]. HENMT: COMMON NORMALS: oropharynx normal Neck/C-Spine: COMMON NORMALS: no JVD Resp: COMMON NORMALS: normal respiratory effort AUSCULTATION: wheezes (Mild wheeze on the left side) Cardio: COMMON NORMALS: no JVD, regular rhythm, S1 normal heart sound present, S2 normal heart sound present and No murmurs present (Cardio) RHYTHM: regular rhythm HEART SOUNDS: S1 normal heart sound present and S2 normal heart sound present GI: COMMON NORMALS: Normal to inspection, nondistended, normoactive bowel sounds present, Soft to palpation and non-tender PALPATION: Yes Soft to palpation Extremity: COMMON NORMALS: no joint enlargement and no pedal edema OTHER: Both feet appear pink, well perfused, warm, cannot palpate pulses. Neuro: COMMON NORMALS: moves all extremities SENSORIUM/ORIENTATION: Yes alert, Yes oriented to person and Yes oriented to time Skin: COMMON NORMALS: no rashes or lesions noted GENERAL SKIN EXAM: no rashes or lesions noted Urinary Catheter Management^: Smith: Cath Placed During This Visit: yes Urethral Indwelling: Yes Reason for Continuing Indwelling Catheter: Accurate Measurement of Urinary Output in Critically Ill Patients Urinary Catheter Date of Insertion: 01/20/20 Urinary Catheter Time of Insertion: 10:58 Data : 01/28/20 03:30 01/28/20 03:30 A&P Assessment and plan (1) Acute respiratory failure with hypoxia and hypercapnia: He is doing well after extubation. On 2L NC. Denies shortness of breath, no significant cough. Reports that his breathing is comfortable. LLL PNA improgiving. Moraxella catarrhalis from sputum culture. Originally intubated in ER, extubated the day after, however, had to be reintubated again overnight, 01/20. Subsequently gradually improved. Extubated again 01/26. So far doing well. Pending ST evaluation. PT - very weak. Will ask DC planning to see as he likely will need SNF. He states lives alone. Not sure that his brother would be able to care for him in current condition. Chronic heavy smoker per brother. Agreeable to nicotine patch. Cont Vanc/Zosyn/Levaquin COVID-19, negative; off isolation precautions Bacterial antigens, MRSA, influenza screen, Legionella negative Status: Acute (2) CVA (cerebral vascular accident): Cont ASA, statin. Obtain MRI brain. Status: Acute (3) Decreased responsiveness: Improved. Encephalopathy due to PNA. CVA. If recurrent, reassess ammonia. Status: Acute (4) Acute kidney failure: Improved. BUN elevated. Monitor renal function. Status: Acute Qualifiers: Acute renal failure type: unspecified Qualified Code(s): N17.9 - Acute kidney failure, unspecified (5) Hypertensive urgency: Blood pressures for the most part are better, although last night did have an episode of high blood pressure 184/81. Given significant vascular disease, would benefit from optimization. Status: Resolved (6) Smoker: -2 PPD x > 30 yrs. Add nicotine patch. Status: Chronic (7) COPD (chronic obstructive pulmonary disease): Mild wheeze still apparent. Currently still on IV steroids. Keep same for now. Continue antibiotics. Breathing treatments. If continues to improve switch to oral steroid. Status: Acute Qualifiers: COPD type: COPD with acute exacerbation Qualified Code(s): J44.1 - Chronic obstructive pulmonary disease with (acute) exacerbation (8) Peripheral vascular disease: His feet appear pink, perfused, do not see any ulceration. There is no cyanosis. Cannot palpate pulses. Will request Doppler reassessment. He is aware of having blockages in his arteries in his legs. Discussed with him would benefit from follow-up with cardiovascular team after discharge to which he is agreeable. 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 Needs to stop smoking. -Venous duplex negative for DVT bilaterally. -Arterial studies show total occlusion of the left iliac, femoral and popliteal artery with collateral filling of the posterior tibial and dorsalis pedis arteries; abnormal resting RAJINDER on the right suggestive of severe PAD, possible total occlusion of the distal SFA. Will likely need CTA with runoff for further evaluation. Cont ASA, statin Status: Suspected (9) Elevated LFTs: Gradual improvement. Cirrhotic appearance of liver on CT. Negative hepatitis panel. History of alcohol abuse, reportedly abstinent for the last 3 years. Would benefit from outpatient follow-up for liver cirrhosis. Ammonia level was normal on presentation. Status: Acute (10) Chronic back pain: Status: Chronic Qualifiers: Back pain location: low back pain Back pain laterality: unspecified Sciatica presence: unspecified whether sciatica present Qualified Code(s): M54.5 - Low back pain; G89.29 - Other chronic pain Additional A&P Information Moderate protein calorie malnutrition: BMI-16 kg/m2. ST evaluation at this time. We will add protein shakes once he assessed to be able to safely swallow. Chronic EtOH abuse; negative alcohol screen, questionable if recent use though per brother patient has been abstinent x 3 yrs. Banana bag given in ED Thrombocytopenia; stable platelet count even with ASA and heparin; continue to monitor. Possibly related to liver cirrhosis. Attestations Medical Necessity Statement*: Continue admission for assessment and management of improving respiratory failure, pneumonia, CVA, in the setting of severe deconditioning, malnutrition, severe peripheral arterial disease. Coding Level of Care Code Acute [employer] for [facility] Fwd Diagnoses Acute respiratory failure with hypoxia and hypercapnia J96.01; J96.02 CVA (cerebral vascular accident) I63.9 Decreased responsiveness R41.89 Acute kidney failure N17.9 Acute renal failure type: unspecified Hypertensive urgency I16.0 Smoker F17.200 COPD (chronic obstructive pulmonary disease) J44.1 COPD type: COPD with acute exacerbation Peripheral vascular disease I73.9 Elevated LFTs R79.89 Chronic back pain M54.5; G89.29 Back pain location: low back pain Back pain laterality: unspecified Sciatica presence: unspecified whether sciatica present
[2020-01-28] MEDS: nicotine 21 mg Patch 1 PATCH TRANSDERMA (09:48)
[2020-01-28] MEDS: pantoprazole DR 40 mg Tablet PO (09:48)
[2020-01-28] MEDS: aspirin 81 mg EC Tablet PO (09:48)
--- NOTE | 2020-01-28 14:30 | MR_ITS ---
WS: [id number] MRI HEAD WITH CONTRAST TECHNIQUE: Sagittal T1, T2 axial, T2 axial FLAIR, axial susceptibility weighted imaging, axial diffus ion weighted images, and coronal T2 images were obtained. Pre and post-T1 axial and post T1 coronal i mages. ADC and FSPGR images. CLINICAL INFORMATION: cva COMPARISON: CT January 20, 2020 FINDINGS: Multiple foci of restricted diffusion involving the periventricular white matter and mckay radiata. Additional patchy foci of restricted diffusion the left posterior frontal lobe. More focal area of re stricted diffusion with a small amount of petechial hemorrhage involving the right parasagittal occip ital lobe with localized edema. No midline shift. Additional small foci of restricted diffusion invol ving the right temporal lobe and right cerebellum. Findings are consistent with acute ischemia consid ering embolic or watershed infarcts. No hydrocephalus. Moderate small vessel changes with moderate parenchymal volume loss. Small vessel c hanges in the yuriy. Chronic lacunar infarcts in the periventricular white matter and bilateral thalam i. Partial opacification of the left greater than right mastoid air cells. Normal vascular flow voids at the skull base. No extra-axial fluid collections. Paranasal sinuses are well aerated. Small amount o f fluid in the sphenoid sinus. Poor contrast bolus on the postgadolinium imaging. T1 hyperintensity c onsistent with a small amount of serpiginous blood products in the right parasagittal occipital lobe. MR/MR head wo/w con [id number] IMPRESSION: 1. Multiple foci of acute ischemia in the periventricular white matter and cor maris radiata. 2. Additional more focal acute ischemia with a small amount of petechial blood products involving the right parasagittal occipital lobe with mild to moderate edema. No significant mass effect or midline shift. 3. Additional tiny infarcts involving the left posterior frontal lobe, periocc ipital white matter, right temporal lobe and right cerebellum. Consider embolic or watershed infarcts. 4. Chronic lacunar infarcts in the thalami 5. Moderate small vessel changes with moderate parenchymal volume loss. 6. Small vessel changes in the yuriy. 7. Mild central canal stenosis in the upper cervical spine at C3-C4 with disc osteophyte complex.
--- NOTE | 2020-01-28 15:37 | PC.SLP ---
Pt not available for ETL CONSULTANT eval at the present time. Not in room.
[2020-01-28] MEDS: levofloxacin-dextrose 5 % 750 MG/150 ML PREMIX 100 MG IV (18:01)
[2020-01-28] MEDS: amlodipine 5 mg Tablet PO (18:50)
[2020-01-28] MEDS: atorvastatin 40 mg Tablet PO (20:10)
[2020-01-29] VITALS (14 sets, daily range): BP systolic 155–187; BP diastolic 64–88; PULSE 62–85; RESP 18–24; TEMP 36.6–37.2; O2SAT 93–99
[2020-01-29] MEDS: heparin 5,000 unit/mL INJ 1 mL 5000 UNIT SUBCUT ×2 (04:09→18:37)
[2020-01-29] MEDS: ipratropium-albuterol 3 mL Neb INHALATION ×4 (04:14→23:29)
[2020-01-29 04:55] LABS: Basophils % 0.1 %; Hematocrit 43.9 % (42.0-52.0); Hemoglobin 13.2 g/dL (11.7-16.6); Lymphocytes # 0.4 10^3/uL (0.8-4.8); Lymphocytes % 5.1 %; Mean Corpuscular HGB Conc 30.1 g/dL (30.0-36.0); Mean Corpuscular Hemoglobin 27.8 pg (28.0-34.0); Mean Corpuscular Volume 92.6 fL (80-94); Mean Platelet Volume 11.7 fL (7.4-10.4); Monocytes # 0.4 10^3/uL (0.2-0.9); Monocytes % 4.3 %; Neutrophils # 7.8 10^3/uL (1.8-7.7); Nucleated Red Blood Cells % 0 %; Platelet Count 111 10^3/cmm (130-400); Red Blood Count 4.74 10^6/uL (4.1-5.3); Red Cell Distribution Width 13.9 % (12.1-15.1); White Blood Count 8.6 10^3/uL (4.0-10.0)
[2020-01-29 05:02] LABS: Alanine Aminotransferase 71 U/L (0-41); Albumin Level 3.2 g/dL (3.5-5.2); Alkaline Phosphatase 46 IU/L (40-130); Anion Gap 11.1 (5-19); Aspartate Amino Transferase 103 U/L (0-40); Blood Urea Nitrogen 23 mg/dL (8-23); Calcium 8.8 mg/dL (8.5-10.5); Carbon Dioxide 32 mmol/L (22-29); Chloride 102 mmol/L (98-107); Globulin 2.3 g/dL (1.3-4.6); Glomerular Filtration Rate 134.8 mL/min (90-130); Glucose 117 mg/dL (65-115); Osmolality Calculated 290 mOsm/kg (285-295); Potassium 4.1 mmol/L (3.5-5.1); Sodium 141 mmol/L (136-145); Total Bilirubin 0.9 mg/dL (0.15-1.2); Total Protein 5.5 g/dL (6.6-8.7)
[2020-01-29] MEDS: pantoprazole DR 40 mg Tablet PO (07:53)
[2020-01-29] MEDS: aspirin 81 mg EC Tablet PO (07:53)
[2020-01-29] MEDS: amlodipine 5 mg Tablet PO (07:53)
[2020-01-29] MEDS: nicotine 21 mg Patch 1 PATCH TRANSDERMA (07:54)
--- NOTE | 2020-01-29 10:40 | PC.SOCIAL ---
IMM Updated Updated pt on Pg 2 IMM. Pt verbally understands. No questions voiced. Provided pt a copy & left on pt's bedside table. Signed, dated, & timed the copy in pt's chart.
[2020-01-29 14:24] LABS: Ammonia 11 umol/L (16-60)
--- NOTE | 2020-01-29 16:30 | PM.PN ---
Subjective Subjective: Interval history: No new symptoms today. He is working with PT. Asked to update his brother on the phone. Vitals/I&O/Wt Last Vital Signs Temp 98.4 F 01/29/20 15:21 Pulse 82 01/29/20 15:21 Resp 20 H 01/29/20 15:21 BP 187/88 01/29/20 15:21 Pulse Ox 95 01/29/20 15:21 01/29/20 01/29/20 01/29/20 06:59 14:59 22:59 Intake Total 360 / 360 Output Total 350 / 1050 Balance -350 / -242 360 / 360 Weight last 48 hrs Weight 48.988 kg Weight 43.409 kg Physical Exam Const: COMMON NORMALS: no acute distress and alert ORIENTATION/CONSCIOUSNESS: Yes oriented to person and Yes oriented to time OTHER: Oriented to being in the hospital and [place], although states the year is 1940. He otherwise does have good insight into his condition, states he is here because of stroke and pneumonia. HENMT: COMMON NORMALS: oropharynx normal Neck/C-Spine: COMMON NORMALS: no JVD Resp: COMMON NORMALS: normal respiratory effort AUSCULTATION: wheezes (Mild wheeze on the left side) Cardio: COMMON NORMALS: no JVD, regular rhythm, S1 normal heart sound present, S2 normal heart sound present and No murmurs present (Cardio) RHYTHM: regular rhythm HEART SOUNDS: S1 normal heart sound present and S2 normal heart sound present GI: COMMON NORMALS: Normal to inspection, nondistended, normoactive bowel sounds present, Soft to palpation and non-tender PALPATION: Yes Soft to palpation Extremity: COMMON NORMALS: no joint enlargement and no pedal edema OTHER: Both feet appear pink, well perfused, warm, cannot palpate pulses. Neuro: COMMON NORMALS: moves all extremities SENSORIUM/ORIENTATION: Yes alert, Yes oriented to person and Yes oriented to time Skin: COMMON NORMALS: no rashes or lesions noted GENERAL SKIN EXAM: no rashes or lesions noted Urinary Catheter Management^: Smith: Cath Placed During This Visit: yes Urethral Indwelling: Yes Reason for Continuing Indwelling Catheter: Other Urinary Catheter Date of Insertion: 01/20/20 Urinary Catheter Time of Insertion: 10:58 Data : 01/29/20 04:13 01/29/20 04:13 A&P Assessment and plan (1) CVA (cerebral vascular accident): Cont ASA, statin. MRI brain with multifocal CVA concerning for embolic etiology or watershed hypoperfusion. Carotid artery Doppler with 16 to 49% stenosis on the right side. No known atrial fibrillation, not seen on EKGs. Monitor on telemetry. His oxygenation has been stable, respiratory symptoms have been significantly improved. Given concern for embolic etiology preparations underway for additional evaluation by ALEX. Discussed with patient and brother both in agreement with plan. Discussed with brother that overall unfortunately prognosis does not look good with a very severe vascular disease, multiple CVA without obvious etiology. At this time would also be high risk of bleeding in case needing anticoagulation due to instability on his feet, high fall risk, however, both patient and brother understand this and still want to evaluate closely for any possible intracardiac clot. Also concern regarding petechial hemorrhage R parasaggital occipital lobe with localized edema. Would benefit from event recorder after discharge as well as follow-up with neurology, as well as cardiology due to severe vascular disease. Discussed with his brother also regarding poorly controlled hypertension, and brother states that this is been going on for a long time unfortunately. Unfortunately also he used to not take any medications for it. Definitely would benefit from optimization of this risk factor. Also needs to stop smoking. If no obvious cause still identified, consider also additional assessment by CTA or MRA. Discussed w neurology. Can't anticoagulate for at least a week. Can add plavix which we will. They will be expecting him in the office for follow up. Status: Acute (2) Acute respiratory failure with hypoxia and hypercapnia: Improving. Antibiotics narrowed down to Levaquin alone. Will switch to oral prednisone. He is doing well after extubation. On 2L NC. Denies shortness of breath, no significant cough. Reports that his breathing is comfortable. LLL PNA improgiving. Moraxella catarrhalis from sputum culture. Originally intubated in ER, extubated the day after, however, had to be reintubated again overnight, 01/20. Subsequently gradually improved. Extubated again 01/26. So far doing well. Pending ST evaluation. PT - very weak. Will need DC to SNF. Chronic heavy smoker per brother. Agreeable to nicotine patch. COVID-19, negative; off isolation precautions Bacterial antigens, MRSA, influenza screen, Legionella negative Status: Acute (3) Peripheral vascular disease: Persistence of bluish disculoration of only the distal L hallux. Dopplerable but faint bilateral PT and DP pulses. Continues on ASA and statin. Concern for embolic disease superimposed on severe PAD. Would benefit from additional assessment. Concern that he probably may need to be anticoagulated in anticipation of any vascular procedure, although has petechial brain hemorrhages. RAJINDER 0.3 on L, 0.5 on R. He is aware of having blockages in his arteries in his legs. -Venous duplex negative for DVT bilaterally. -Arterial studies show total occlusion of the left iliac, femoral and popliteal artery with collateral filling of the posterior tibial and dorsalis pedis arteries; abnormal resting RAJINDER on the right suggestive of severe PAD, possible total occlusion of the distal SFA. 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 Discussed w neurology. Can't anticoagulate for at least a week with intracerebral hemorrhage. Can add plavix. Discussed with vascular surgery who advised paying attention to aortic arch during ALEX. Discussed with Dr Cagle. NTG and possibly pentoxifylline (unfortunately unavailable on formulary) could be tried for symptoms in the left left hallux. Advised also discussion with interventional cardiology as he would likely need angiographic evaluation prior to consideration of any intervention (also need to be able to receive anticoagulation). Discussed with interventional cardiology Dr. Stanley who will see him after ALEX for consideration of additional steps in evaluating the severe peripheral vascular disease with complicating factor being that he cannot receive anticoagulation. In the meantime Plavix is added to ASA. Discussed with his brother again who verbalized understanding and agreement. Status: Suspected (4) Hypertensive urgency: Poorly controlled hypertension. Increase amlodipine dose to 10 mg. Given significant vascular disease, would benefit from optimization, although appears unfortunately reluctant to take medications in the past. Status: Resolved (5) Decreased responsiveness: Improved. Encephalopathy due to PNA. CVA. Repeat ammonia normal. Status: Acute (6) Acute kidney failure: Improved. BUN elevated. Monitor renal function. Status: Acute Qualifiers: Acute renal failure type: unspecified Qualified Code(s): N17.9 - Acute kidney failure, unspecified (7) Smoker: -2 PPD x > 30 yrs. Add nicotine patch. Status: Chronic (8) COPD (chronic obstructive pulmonary disease): No wheezing. Clear to auscultation. Change to PO steroids. Continue antibiotic. Breathing treatments. Status: Acute Qualifiers: COPD type: COPD with acute exacerbation Qualified Code(s): J44.1 - Chronic obstructive pulmonary disease with (acute) exacerbation (9) Elevated LFTs: Gradual improvement. Cirrhotic appearance of liver on CT. Negative hepatitis panel. Discussed also with his brother regarding concern for cirrhosis. In addition to history of alcohol abuse, brother also reports history of hepatitis B. Given his overall condition he would not be candidate for liver transplantation. 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 History of alcohol abuse, reportedly abstinent for the last 3 years. Would benefit from outpatient follow-up for liver cirrhosis. Ammonia level was normal on presentation. Status: Acute (10) Chronic back pain: Status: Chronic Qualifiers: Back pain laterality: unspecified Back pain location: low back pain Sciatica presence: unspecified whether sciatica present Qualified Code(s): M54.5 - Low back pain; G89.29 - Other chronic pain Additional A&P Information Moderate protein calorie malnutrition: BMI-16 kg/m2. ST evaluation at this time. We will add protein shakes once he assessed to be able to safely swallow. Chronic EtOH abuse; negative alcohol screen, questionable if recent use though per brother patient has been abstinent x 3 yrs. Banana bag given in ED Thrombocytopenia; stable platelet count even with ASA and heparin; continue to monitor. Possibly related to liver cirrhosis. Attestations Medical Necessity Statement*: Continue admission for assessment of management of multiple CVA, with concern for embolic etiology, severe peripheral arterial disease, and concern for embolic disease in the left hallux, all in the setting of small amount of occipital lobe intracerebral hemorrhage. 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 [facility] Fwd Exam Comprehensive Diagnoses CVA (cerebral vascular accident) I63.9 Acute respiratory failure with hypoxia and hypercapnia J96.01; J96.02 Peripheral vascular disease I73.9 Hypertensive urgency I16.0 Decreased responsiveness R41.89 Acute kidney failure N17.9 Acute renal failure type: unspecified Smoker F17.200 COPD (chronic obstructive pulmonary disease) J44.1 COPD type: COPD with acute exacerbation Elevated LFTs R79.89 Chronic back pain M54.5; G89.29 Back pain laterality: unspecified Back pain location: low back pain Sciatica presence: unspecified whether sciatica present
[2020-01-29] MEDS: nitroglycerin 1 gm/inch oint Pkt 0.5 INCH TOPICAL (18:37)
[2020-01-29] MEDS: clopidogrel 75 mg Tablet PO (18:37)
--- NOTE | 2020-01-29 18:42 | P.CONIM_ITS ---
Providers/Reason For Consult Consulting Physican/Specialty*: Marianne Cagle MD/cardiology Reason for Consult*: Patient with possible embolic CVA, looking for cardiac source Attending Physician: Librado Chung Primary Care Provider: Adalid Frost DO History of Present Illness History of Present Illness Nasir Lepe is a 64 year old male who is admitted to the hospital to the emergency room where he was brought by the ambulance with altered mental status, features of hypercapnic, hypoxic respiratory failure. He was intubated in the emergency room and subsequently was admitted to the hospital. Currently he is extubated. His CT scan and the MRI showed evidence of multifocal ischemic infarcts suggestive of an embolic phenomenon. Consult is requested to perform a ALEX to evaluate for any cardiac source of embolization. Patient is a very poor historian. He denies any chest pain or shortness of breath. Has not had any fever, chills. No significant cough. Patient also was found to have severe peripheral arterial disease. He has mild to moderate plaques in the carotid arteries bilaterally. He has a history of heavy smoking abuse and alcohol abuse. He has no history for any difficulty in swallowing or any upper GI bleed. No history for peptic ulcer disease. No abdominal pain. Review of Systems Narrative: CONSTITUTIONAL: No fever or chills. EYES: No blurring of vision or other visual disturbances lately. ENT: No hoarseness of voice, auditory disturbances or sore throat. CARDIOVASCULAR: As mentioned above. RESPIRATORY: Has some shortness of breath and COPD. Status post respiratory failure as mentioned above GASTROINTESTINAL: No hematemesis or melena. GENITOURINARY: Acute kidney injury based on the work-up here in this hospital INTEGUMENTARY: No skin rashes or history of skin cancer. NEURO: Altered mental status as mentioned above PSYCHIATRIC: No history of psychosis or major depression. HEMATOLOGIC: No bleeding disorders or significant anemia. ENDOCRINE: No document history for diabetes or hypothyroidism MUSCULOSKELETAL: No recent joint pain or swelling. ALLERGY/IMMUNOLOGY: As mentioned above. Meds/Allergies Home Medications and Allergies Home Medications Medication Instructions Recorded Confirmed Last Taken Type No Known Home Medications 01/20/20 01/20/20 Unknown History Allergies Allergy/AdvReac Type Severity Reaction Status Date / Time No Known Allergies Allergy Verified 01/20/20 09:41 Current Medications Current Medications Generic Name Dose Route Start Last Admin Trade Name Freq PRN Reason Stop Dose Admin Albuterol/Ipratropium 3 ml 01/23/20 00:00 01/29/20 16:55 Duoneb INHALATION Not Given Q4H.RESPIRATORY JOSELINE Aspirin 81 mg 01/28/20 09:00 01/29/20 07:53 Aspirin Ec PO 81 mg DAILY JOSELINE Administration Atorvastatin Calcium 40 mg 01/27/20 21:00 01/28/20 20:10 Lipitor PO 40 mg BEDTIME JOSELINE Administration Heparin Sodium (Beef Lung) 5,000 unit 01/20/20 14:00 01/29/20 04:09 Heparin SUBCUT 5,000 unit Q12H JOSELINE Administration Hydralazine HCl 5 mg 01/20/20 20:47 01/26/20 05:30 Apresoline IVP 5 mg Q4H PRN Administration HYPERTENSION Levofloxacin/Dextrose 750 mg in 150 mls @ 100 mls/hr 01/21/20 12:00 01/28/20 18:01 Levaquin-D5w IV 100 mls/hr Q24H JOSELINE Administration Protocol Lorazepam 1 mg 01/21/20 19:20 01/26/20 13:57 Ativan IVP 1 mg Q8H PRN Administration Anxiety or agitation Nicotine 1 patch 01/28/20 09:00 01/29/20 07:54 Nicoderm 21 Mg Patch TRANSDERMA 1 patch DAILY JOSELINE Administration Pantoprazole Sodium 40 mg 01/28/20 09:00 01/29/20 07:53 Protonix PO 40 mg DAILY JOSELINE Administration PFSH Acute PFSH: Medical History Alcohol abuse Cerebrovascular accident, embolic Chronic back pain COPD (chronic obstructive pulmonary disease) Smoker Surgical History History of back surgery Family History Sister Diabetes Denies family history of CAD (coronary artery disease) Cancer Social History Smoking and tobacco status: current every day smoker cigarettes Packs smoked per day: 2 Years cigarettes smoked: 30 Alcohol intake: former Former alcohol use details: abstinent x 3 yrs Substance/Drug Use: never Lives independently: Yes Housing: House Marital status: Single Vitals/I&O/Wt Last Vital Signs Temp 98.4 F 01/29/20 15:21 Pulse 82 01/29/20 15:21 Resp 20 H 01/29/20 15:21 BP 187/88 01/29/20 15:21 Pulse Ox 95 01/29/20 15:21 01/29/20 01/29/20 01/29/20 06:59 14:59 22:59 Intake Total 360 / 360 240 / 600 Output Total 350 / 1050 Balance -350 / -242 360 / 360 240 / 600 Weight last 48 hrs Weight 108 lb Weight 95 lb 11.2 oz Physical Exam Narrative: EXAM NARRATIVE: GENERAL: The patient is alert and oriented times three. Not in any acute distress. HEENT: Mild pallor, no icterus or lymphadenopathy.Oral cavity: There are no mucous membrane lesions. NECK: Trachea appears to be central. No masses noted. No JVD or thyromegaly appreciated. RESPIRATORY: Chest is symmetrical. No intercostals muscle retraction or any accessory muscle activation. There is no chest wall tenderness. Breath sounds are heard bilaterally. No rales or rhonchi heard. No evidence of any consoli dation. BREASTS: Deferred. HEART: The heart sounds are normal. No S3 or S4. Short systolic murmur in the mitral area. No diastolic murmurs.. No pericardial rub ABDOMEN: No vessel pulsations or distention. No tenderness. No organomegaly appreciated. Bowel sounds are normally heard. : Deferred. RECTAL: Deferred. LYMPHATIC: No lymphadenopathy noted in the neck . EXTREMITIES: 1+ edema both lower extremities. Dorsalis pedis and posterior tibial pulses are nonpalpable bilaterally. MUSCULOSKELETAL: No acute joint deformities or swelling SKIN: There are no significant rashes. Ecchymosis at the tip of the left big toe NEUROPSYCHIATRIC: No focal motor deficits Urinary Catheter Management^: Smith: Cath Placed During This Visit: yes Urethral Indwelling: Yes Reason for Continuing Indwelling Catheter: Other Urinary Catheter Date of Insertion: 01/20/20 Urinary Catheter Time of Insertion: 10:58 Data Labs: Other Labs: Laboratory Last Values WBC 8.6 10^3/uL (4.0- 10.0) 01/29/20 04:13 RBC 4.74 10^6/uL (4.1 -5.3) 01/29/20 04:13 Hgb 13.2 g/dL (11.7-1 6.6) 01/29/20 04:13 Hct 43.9 % (42.0-52.0 ) 01/29/20 04:13 MCV 92.6 fL (80-94) 01/29/20 04:13 MCH 27.8 pg (28.0-34. 0) L 01/29/20 04:13 MCHC 30.1 g/dL (30.0-3 6.0) 01/29/20 04:13 RDW 13.9 % (12.1-15.1 ) 01/29/20 04:13 Plt Count 111 10^3/cmm (130 -400) L 01/29/20 04:13 MPV 11.7 fL (7.4-10.4 ) H 01/29/20 04:13 Neut % (Auto) 90.0 % 01/29/20 04:13 Lymph % (Auto) 5.1 % 01/29/20 04:13 [place] % (Auto) 4.3 % 01/29/20 04:13 Eos % (Auto) 0.0 % 01/29/20 04:13 Baso % (Auto) 0.1 % 01/29/20 04:13 Neut # (Auto) 7.8 10^3/uL (1.8- 7.7) H 01/29/20 04:13 Lymph # (Auto) 0.4 10^3/uL (0.8- 4.8) L 01/29/20 04:13 [place] # (Auto) 0.4 10^3/uL (0.2- 0.9) 01/29/20 04:13 Eos # (Auto) 0.0 10^3/uL (0.0- 0.8) 01/29/20 04:13 Baso # (Auto) 0.0 10^3/uL (0.0- 0.1) 01/29/20 04:13 Nucleated RBC % (a uto) 0 % 01/29/20 04:13 Nucleated RBCs # 0.0 /100WBC 01/29/20 04:13 PT 14.90 SECONDS (10 .5-13.3) H 01/20/20 09:28 INR 1.13 (0.8-1.2) 01/20/20 09:28 APTT 31.2 SECONDS (23. 9-36.7) 01/20/20 09:28 Specimen Type Arterial 01/27/20 06:19 Sample Site Brachial, right 01/27/20 06:19 ABG pH 7.50 (7.35-7.45) H 01/27/20 06:19 ABG pCO2 37.4 mmHg (35-45) 01/27/20 06:19 ABG pO2 85.7 mmHg (80.0-1 00.0) 01/27/20 06:19 ABG HCO3 29.0 mmol/L (22-2 6) H 01/27/20 06:19 ABG Base Excess 5.6 mmol/L (-2.0- 2.0) H 01/27/20 06:19 Jorge Test N/a 01/27/20 06:19 Hematocrit 39.9 % (42-52) L 01/27/20 06:19 Respiration Rate 12.0 % 01/27/20 06:19 O2 Delivery Device Vent 01/27/20 06:19 Vent Mode Ac 01/22/20 05:10 Mechanical Rate 12.0 01/24/20 05:34 FiO2 30.0 % 01/27/20 06:19 Tidal Volume 0.4 01/25/20 05:21 PEEP 5.0 cmH20 01/27/20 06:19 Pressure Support 10.0 cmH2O 01/25/20 13:58 Mode BiPAP 18/0301/21/20 23:32 Specimen Drawn By Freda 01/22/20 05:10 Vice President Of Manufacturing ID master 01/27/20 06:19 Blood Gas Notified Time 01001/22/20 00:45 Sodium 141 mmol/L (136-1 45) 01/29/20 04:13 Potassium 4.1 mmol/L (3.5-5 .1) 01/29/20 04:13 Chloride 102 mmol/L (98-10 7) 01/29/20 04:13 Carbon Dioxide 32 mmol/L (22-29) H 01/29/20 04:13 Anion Gap 11.1 (5-19) 01/29/20 04:13 BUN 23 mg/dL (8-23) 01/29/20 04:13 Creatinine 0.6 mg/dL (0.7-1. 2) L 01/29/20 04:13 GFR Calculation 134.8 mL/min (90- 130) H 01/29/20 04:13 Glucose 117 mg/dL (65-115 ) H 01/29/20 04:13 Estimat Average Gl ucose 105 01/21/20 03:20 Hemoglobin A1c 5.3 % (4.0-6.0) 01/21/20 03:20 Calculated Osmolal ity 290 mOsm/kg (285- 295) 01/29/20 04:13 Lactic Acid 2.0 mmol/L (0.5-2 .2) 01/20/20 09:28 Calcium 8.8 mg/dL (8.5-10 .5) 01/29/20 04:13 Magnesium 2.2 mg/dL (1.7-2. 3) 01/20/20 09:28 Total Bilirubin 0.9 mg/dL (0.15-1 .2) 01/29/20 04:13 AST 103 U/L (0-40) H 01/29/20 04:13 ALT 71 U/L (0-41) H 01/29/20 04:13 Alkaline Phosphata se 46 IU/L (40-130) 01/29/20 04:13 Ammonia 11 umol/L (16-60) L 01/29/20 13:54 Troponin I 6 Hour 67.52 ng/L (0-15) H 01/20/20 16:20 Troponin I Hi Sens Del 3.52 ng/L (0-12) 01/20/20 16:20 Troponin T Baselin e 64 ng/L (0-15) H 01/20/20 09:28 Troponin T 120 Min rodriguez 58.46 ng/L (0-15) H 01/20/20 11:07 Delta Troponin T -5.54 ABS# (0-10) L 01/20/20 11:07 Total Protein 5.5 g/dL (6.6-8.7 ) L 01/29/20 04:13 Albumin 3.2 g/dL (3.5-5.2 ) L 01/29/20 04:13 Globulin 2.3 g/dL (1.3-4.6 ) 01/29/20 04:13 Triglycerides 129 mg/dL (0-150) 01/21/20 03:20 Cholesterol 107 mg/dL (0-200) 01/21/20 03:20 LDL Cholesterol, C alc 56 mg/dL (50-129) 01/21/20 03:20 HDL Cholesterol 25 mg/dL (60-100) L 01/21/20 03:20 LDL/HDL Ratio 2.24 RATIO (0.00- 3.22) 01/21/20 03:20 Cholesterol/HDL Ra juan 4.28 mg/dL (1.0-5 .00) 01/21/20 03:20 TSH 0.61 uIU/mL (0.27 -4.20) 01/21/20 03:20 Urine Color Dark yellow (Yel low) 01/20/20 10:00 Urine Appearance Clear (CLEAR) 01/20/20 10:00 Urine pH 5 (5-7) 01/20/20 10:00 Ur Specific Gravit y 1.030 (1.005-1.0 30) 01/20/20 10:00 Urine Protein 1+ (Negative) H 01/20/20 10:00 Urine Glucose (UA) Norm (Normal) 01/20/20 10:00 Urine Ketones Negative (Negati ve) 01/20/20 10:00 Urine Blood Neg (Negative) 01/20/20 10:00 Urine Nitrate Negative (Negati ve) 01/20/20 10:00 Urine Bilirubin 1+ (NEGATIVE) H 01/20/20 10:00 Urine Urobilinogen 4 mg/dL (Negative ) H 01/20/20 10:00 Ur Leukocyte Ernestina ase Negative (Negati ve) 01/20/20 10:00 Urine RBC None /hpf (0-2) 01/20/20 10:00 Urine WBC None /hpf (0-5) 01/20/20 10:00 Ur Squamous Epith Cells None (0-5) 01/20/20 10:00 Amorphous Sediment 1+ 01/20/20 10:00 Urine Bacteria 1+ (NONE) H 01/20/20 10:00 Urine Mucus Trace 01/20/20 10:00 Vancomycin Trough 13.3 ug/mL (10-15 ) 01/26/20 01:43 Salicylates < 0.3 mg/dL (3-10 ) L 01/20/20 09:28 Urine Opiates Scre en Negative ng/mL (N egative) 01/20/20 10:00 Acetaminophen < 5.0 ug/mL (10-3 0) L 01/20/20 09:28 Ur Barbiturates Sc reen Negative ng/mL (N egative) 01/20/20 10:00 Ur Phencyclidine S crn Negative ng/mL (N egative) 01/20/20 10:00 Ur Amphetamines Sc reen Negative ng/mL (N egative) 01/20/20 10:00 U Benzodiazepines Scrn Negative ng/mL (N egative) 01/20/20 10:00 Urine Cocaine Scre en Negative ng/mL (N egative) 01/20/20 10:00 U Marijuana (THC) Screen Negative ng/mL (N egative) 01/20/20 10:00 Ethyl Alcohol < 10 mg/dL (0-10) 01/20/20 09:28 Nasal/Oral COVID-1 9 PCR Not detected 01/20/20 11:07 Hepatitis A IgM Ab Non-reactive (No nreactive) 01/20/20 09:28 Hep Bs Antigen Non-reactive (No nreactive) 01/20/20 09:28 Hep B Core IgM Ab Non-reactive (No nreactive) 01/20/20 09:28 Hepatitis C Antibo dy Non-reactive (No nreactive) 01/20/20 09:28 Influenza Type A A g Negative (Negati ve) 01/20/20 13:00 Influenza Type B A g Negative (Negati ve) 01/20/20 13:00 Imaging^: MRI of the brain: Radiologist's impression: 1. Multiple foci of acute ischemia in the periventricular white matter and mckay radiata. 2. Additional more focal acute ischemia with a small amount of petechial blood products involving the right parasagittal occipital lobe with mild to moderate edema. No significant mass effect or midline shift. 3. Additional tiny infarcts involving the left posterior frontal lobe, perioccipital white matter, right temporal lobe and right cerebellum. Consider embolic or watershed infarcts. 4. Chronic lacunar infarcts in the thalami 5. Moderate small vessel changes with moderate parenchymal volume loss. 6. Small vessel changes in the yuriy. 7. Mild central canal stenosis in the upper cervical spine at C3-C4 with disc osteophyte complex. Echo: My impression: 1. This is a technically difficult study. 2. Normal left ventricular size and systolic function. Left ventricular ejection fraction is estimated at 62 %. Although no diagnostic regional wall motion abnormality could identified this possibility cannot be completely excluded based on the study. Normal diastolic function. 3. No cardioembolic source of stroke based on this study. ALEX is recommended, if clinically indicated A&P Assessment and plan (1) Cerebrovascular accident, embolic: In view of the abnormal MRI and CT scan findings, most likely the patient might have had embolic CVA. For further evaluation, a ALEX would be appropriate. In view of his severe peripheral artery disease, possibility of atheromatous plaques in the aorta is a strong consideration. Based on the ALEX, further recommendations will be made Status: Acute Qualifiers: Precerebral and cerebral artery: unspecified precerebral artery Qualified Code(s): I63.10 - Cerebral infarction due to embolism of unspecified precerebral artery (2) Acute respiratory failure with hypoxia and hypercapnia: She is currently extubated. Management as per the primary. Status: Acute (3) Severe peripheral arterial disease: Patient seems to be fairly asymptomatic at this time. Needs to be further evaluated Status: Acute Additional A&P Information Based on the results of the ALEX, further recommendations will be made. Currently the patient has no contraindication for the procedure. The procedure was explained to the patient and his sister in detail with risks and benefits which they seem to understand well. Patient be scheduled for a ALEX tomorrow afternoon. Patient may be kept n.p.o. after an sterile tech breakfast. Coding Level of Care Code Acute Supervisor [employer] for [facility] Fwd Diagnoses Cerebrovascular accident, embolic I63.10 Precerebral and cerebral artery: unspecified precerebral artery Acute respiratory failure with hypoxia and hypercapnia J96.01; J96.02 Severe peripheral arterial disease I73.9
[2020-01-29] MEDS: atorvastatin 40 mg Tablet PO (20:02)
[2020-01-29] MEDS: levofloxacin-dextrose 5 % 750 MG/150 ML PREMIX 100 MG IV (23:27)
[2020-01-30] VITALS (19 sets, daily range): BP systolic 126–177; BP diastolic 60–84; PULSE 69–90; RESP 16–24; TEMP 36.4–36.9; O2SAT 90–100
[2020-01-30] MEDS: nitroglycerin 1 gm/inch oint Pkt 0.5 INCH TOPICAL ×4 (00:45→18:44)
[2020-01-30] MEDS: ipratropium-albuterol 3 mL Neb INHALATION ×5 (03:56→19:58)
[2020-01-30 05:54] LABS: Eosinophils % 0.1 %; Hematocrit 42.7 % (42.0-52.0); Hemoglobin 12.9 g/dL (11.7-16.6); Lymphocytes # 1.3 10^3/uL (0.8-4.8); Lymphocytes % 15.8 %; Mean Corpuscular HGB Conc 30.2 g/dL (30.0-36.0); Mean Corpuscular Hemoglobin 27.8 pg (28.0-34.0); Mean Platelet Volume 11.4 fL (7.4-10.4); Monocytes # 0.7 10^3/uL (0.2-0.9); Monocytes % 7.9 %; Neutrophils # 6.4 10^3/uL (1.8-7.7); Neutrophils % 75.7 %; Nucleated Red Blood Cells % 0 %; Platelet Count 92 10^3/cmm (130-400); Red Blood Count 4.64 10^6/uL (4.1-5.3); Red Cell Distribution Width 13.8 % (12.1-15.1); White Blood Count 8.4 10^3/uL (4.0-10.0)
[2020-01-30 06:05] LABS: Alanine Aminotransferase 58 U/L (0-41); Albumin Level 2.9 g/dL (3.5-5.2); Alkaline Phosphatase 43 IU/L (40-130); Anion Gap 12.3 (5-19); Aspartate Amino Transferase 62 U/L (0-40); Blood Urea Nitrogen 21 mg/dL (8-23); Calcium 8.4 mg/dL (8.5-10.5); Carbon Dioxide 31 mmol/L (22-29); Chloride 100 mmol/L (98-107); Globulin 2.1 g/dL (1.3-4.6); Glomerular Filtration Rate 134.8 mL/min (90-130); Glucose 87 mg/dL (65-115); Osmolality Calculated 286 mOsm/kg (285-295); Potassium 3.3 mmol/L (3.5-5.1); Sodium 140 mmol/L (136-145); Total Bilirubin 0.9 mg/dL (0.15-1.2)
[2020-01-30] MEDS: heparin 5,000 unit/mL INJ 1 mL 5000 UNIT SUBCUT (06:26)
[2020-01-30] MEDS: amlodipine 10 mg Tablet PO (08:05)
[2020-01-30] MEDS: aspirin 81 mg EC Tablet PO (08:05)
[2020-01-30] MEDS: pantoprazole DR 40 mg Tablet PO (08:05)
[2020-01-30] MEDS: nicotine 21 mg Patch 1 PATCH TRANSDERMA (08:06)
[2020-01-30] MEDS: predniSONE 20 mg Tablet 40 MG PO (08:06)
--- NOTE | 2020-01-30 08:47 | P.ANESASSM_ITS ---
Pre-Anesthetic Assessment Pre-Anesthetic Assessment: Height/Weight: Height 1.68 m Weight 51.755 kg Temp Pulse Resp BP Pulse Ox 97.8 F 75 20 H 177/78 98 01/30/20 08:00 01/30/20 08:00 01/30/20 08:00 01/30/20 08:00 01/30/20 08:00 Preop Diagnosis: Fever Proposed Procedure: ALEX Familial anesthetic complications: none Last intake: drinking clears this morning Social: Social History: Tobacco Exam: Pre-Anes Outpt Exam: alert, oriented x 3, clear to auscultation bilaterally and regular rate & rhythm Airway: Cervical ROM: WNL MP: 2 Dentition: Partials Additional comments: missing Pulmonary: Pulmonary: COPD Comments: admitted with acute respiratory distress in setting of AMS - extubated and doing well CV/HEM: CV/HEM: HTN and PVD Metabolic: Comments: ETOH abuse Neuropsych: Neuropsych: CVA Anesthetic Plan: ASA status: 3 Anesthesia: MAC Risk of > 500 ml blood loss (7ml/kg in children): No Meds/Allergies 2 Current Medications: Current Medications Generic Name Dose Route Start Last Admin Trade Name Freq PRN Reason Stop Dose Admin Albuterol/Ipratrop ium 3 ml 01/23/20 00:00 01/30/20 07:35 Duoneb INHALATION 3 ml Q4H.RESPIRATORY S CH Administration Amlodipine Besylat e 10 mg 01/30/20 09:00 01/30/20 08:05 Norvasc PO 10 mg DAILY JOSELINE Administration Aspirin 81 mg 01/28/20 09:00 01/30/20 08:05 Aspirin Ec PO 81 mg DAILY JOSELINE Administration Atorvastatin Calci um 40 mg 01/27/20 21:00 01/29/20 20:02 Lipitor PO 40 mg BEDTIME JOSELINE Administration Clopidogrel Bisulf ate 75 mg 01/29/20 18:00 01/29/20 18:37 Plavix PO 75 mg Q24H JOSELINE Administration Heparin Sodium (Be ef Lung) 5,000 unit 01/20/20 14:00 01/30/20 06:26 Heparin SUBCUT 5,000 unit Q12H JOSELINE Administration Hydralazine HCl 5 mg 01/20/20 20:47 01/26/20 05:30 Apresoline IVP 5 mg Q4H PRN Administration HYPERTENSION Levofloxacin/Dextr ose 750 mg in 150 mls @ 100 mls/hr 01/21/20 12:00 01/30/20 00:57 Levaquin-D5w IV Infused Q24H JOSELINE Infusion Protocol Lorazepam 1 mg 01/21/20 19:20 01/26/20 13:57 Ativan IVP 1 mg Q8H PRN Administration Anxiety or agitat ion Nicotine 1 patch 01/28/20 09:00 01/30/20 08:06 Nicoderm 21 Mg P atch TRANSDERMA 1 patch DAILY JOSELINE Administration Nitroglycerin 0.5 inch 01/29/20 17:45 01/30/20 06:26 Nitro-Bid TOPICAL 0.5 inch Q6H JOSELINE Administration Pantoprazole Sodiu m 40 mg 01/28/20 09:00 01/30/20 08:05 Protonix PO 40 mg DAILY JOSELINE Administration Prednisone 40 mg 01/30/20 09:00 01/30/20 08:06 Prednisone PO 40 mg DAILY JOSELINE Administration Additional Medication Information: Active Medications Generic Name Dose Route Start Last Admin Trade Name Freq PRN Reason Stop Dose Admin Acetaminophen 650 mg 01/20/20 13:35 Tylenol MS Q6H PRN FEVER Albuterol/Ipratrop ium 3 ml 01/23/20 00:00 01/27/20 08:03 Duoneb INHALATION 3 ml Q4H.RESPIRATORY S CH Administration Aspirin 325 mg 01/21/20 10:10 01/26/20 08:45 Aspirin OG-TUBE 325 mg DAILY JOSELINE Administration Atorvastatin Calci um 40 mg 01/23/20 21:00 01/26/20 20:10 Lipitor OG-TUBE 40 mg BEDTIME JOSELINE Administration Atropine Sulfate 4 drop 01/24/20 11:54 Isopto Atropine SUBLINGUAL Q2H PRN SECRETIONS Heparin Sodium (Be ef Lung) 5,000 unit 01/20/20 14:00 01/27/20 01:55 Heparin SUBCUT 5,000 unit Q12H JOSELINE Administration Hydralazine HCl 5 mg 01/20/20 20:47 01/26/20 05:30 Apresoline IVP 5 mg Q4H PRN Administration HYPERTENSION Vancomycin HCl 750 mg/ Sodium 250 mls @ 250 mls /hr 01/20/20 14:30 01/27/20 04:20 Chloride IV Infused Q12H JOSELINE Infusion Protocol Piperacillin Sod/T azobactam 50 mls @ 12.5 mls /hr 01/20/20 16:00 01/27/20 07:52 Sod 3.375 gm/ So dium Chloride IV 100 mls/hr Q8H JOSELINE Administration Protocol Levofloxacin/Dextr ose 750 mg in 150 mls @ 100 mls/hr 01/21/20 12:00 01/26/20 13:48 Levaquin-D5w IV Infused Q24H JOSELINE Infusion Protocol Sodium Chloride 1,000 mls @ 75 ml s/hr 01/20/20 15:30 01/21/20 19:08 Sodium Chloride 0.9% IV 75 mls/hr .[id number] JOSELINE Administration Fentanyl 1,000 mcg / Sodium 100 mls @ 0 mls/h r 01/22/20 02:15 01/27/20 05:59 Chloride IV 25 mcg/hr .Q0M JOSELINE 2.5 mls/hr Administration Protocol Per Protocol Midazolam HCl 100 mg/ Sodium 100 mls @ 0 mls/h r 01/22/20 10:30 01/27/20 05:59 Chloride IV 2 mg/hr .Q0M JOSELINE 2 mls/hr Administration Protocol Per Protocol Lorazepam 1 mg 01/21/20 19:20 01/26/20 13:57 Ativan IVP 1 mg Q8H PRN Administration Anxiety or agitat ion Methylprednisolone Sodium Succinate 40 mg 01/24/20 12:00 01/27/20 05:50 Solu-Medrol IVP 40 mg Q6H JOSELINE Administration Ondansetron HCl 4 mg 01/20/20 13:35 Zofran IVP Q6H PRN NAUSEA AND VOMITI NG Pantoprazole Sodiu m 40 mg 01/20/20 13:35 01/26/20 08:45 Protonix IVP 40 mg DAILY JOSELINE Administration No Known Allergies Allergy (Verified 01/20/20 09:41) PFSH Anesthesia PFSH: Medical History Alcohol abuse Cerebrovascular accident, embolic Chronic back pain COPD (chronic obstructive pulmonary disease) Severe peripheral arterial disease Smoker Surgical History History of back surgery Family History Sister Diabetes Denies family history of CAD (coronary artery disease) Cancer Social History Smoking and tobacco status: current every day smoker cigarettes Packs smoked per day: 2 Years cigarettes smoked: 30 Alcohol intake: former Former alcohol use details: abstinent x 3 yrs Substance/Drug Use: never Lives independently: Yes Housing: House Marital status: Single Data Anesthesia CBC & Chem 7: 01/30/20 04:43 01/30/20 04:43 Other Labs: Laboratory Results - last 48 hr 01/29/20 01/29/20 01/29/20 04:13 04:13 13:54 WBC 8.6 RBC 4.74 Hgb 13.2 Hct 43.9 MCV 92.6 MCH 27.8 L MCHC 30.1 RDW 13.9 Plt Count 111 L MPV 11.7 H Neut % (Auto) 90.0 Lymph % (Auto) 5.1 [place] % (Auto) 4.3 Eos % (Auto) 0.0 Baso % (Auto) 0.1 Neut # (Auto) 7.8 H Lymph # (Auto) 0.4 L [place] # (Auto) 0.4 Eos # (Auto) 0.0 Baso # (Auto) 0.0 Nucleated RBC % (auto) 0 Nucleated RBCs # 0.0 Sodium 141 Potassium 4.1 Chloride 102 Carbon Dioxide 32 H Anion Gap 11.1 BUN 23 Creatinine 0.6 L GFR Calculation 134.8 H Glucose 117 H Calculated Osmolality 290 Calcium 8.8 Total Bilirubin 0.9 AST 103 H ALT 71 H Alkaline Phosphatase 46 Ammonia 11 L Total Protein 5.5 L Albumin 3.2 L Globulin 2.3 01/30/20 01/30/20 04:43 04:43 WBC 8.4 RBC 4.64 Hgb 12.9 Hct 42.7 MCV 92.0 MCH 27.8 L MCHC 30.2 RDW 13.8 Plt Count 92 L MPV 11.4 H Neut % (Auto) 75.7 Lymph % (Auto) 15.8 [place] % (Auto) 7.9 Eos % (Auto) 0.1 Baso % (Auto) 0.0 Neut # (Auto) 6.4 Lymph # (Auto) 1.3 [place] # (Auto) 0.7 Eos # (Auto) 0.0 Baso # (Auto) 0.0 Nucleated RBC % (auto) 0 Nucleated RBCs # 0.0 Sodium 140 Potassium 3.3 L Chloride 100 Carbon Dioxide 31 H Anion Gap 12.3 BUN 21 Creatinine 0.6 L GFR Calculation 134.8 H Glucose 87 Calculated Osmolality 286 Calcium 8.4 L Total Bilirubin 0.9 AST 62 H ALT 58 H Alkaline Phosphatase 43 Ammonia Total Protein 5.0 L Albumin 2.9 L Globulin 2.1 Cardiac Studies: No Data to Display
--- NOTE | 2020-01-30 16:20 | PC.NURSE ---
Pt taken via bed with Chief Mate nurse to procedure. Off floor.
--- NOTE | 2020-01-30 17:30 | USCV_ITS ---
Nasir Lepe Age: 64 Gender: M : 1955 Exam Date: 01/30/2020 16:12 Ordering Phys: Reid Cagle MD ([email or web address]) Technologist: Chinyere Villareal [place] [facility] [place]: EVAL FOR EMBOLIZATION BP: / HR: Rhythm: Sinus Technical Quality: MEASUREMENTS (Male / Female) Normal Values Medications Patient given IV sedation by anesthesia service, for details please refer to the anesthesia report. Complications None. Proc. Components ALEX was performed at multiple levels. FINDINGS Left Ventricle Concentric left ventricular hypertrophy. Normal ejection fraction. Right Ventricle Of normal size no cavitary masses. Right Atrium Mildly dilated right atrium Left Atrium Mildly dilated left atrium LA Appendage Of normal size with normal contractility. No masses or thrombi noted. IA Septum Intact with no evidence of any ASD, PFO Mitral Valve Minimally thickened mitral valve with a mild mitral annular calcification. Trace of mitral regurgitation. Aortic Valve Minimally thickened aortic valve. Trace of aortic regurgitation. Tricuspid Valve Trace tricuspid valve regurgitation. Pulmonic Valve Normal valve morphology with no masses or thrombi. Pericardium No significant pericardial effusion. Aorta Mild diffuse plaques in the ascending aorta and arch of the aorta. Moderate intravenous irregular plaques with in the descending aorta CONCLUSIONS Minimally thickened aortic and mitral valves with a trace of aortic and mitral regurgitation. Concentric left ventricular hypertrophy with normal ejection fraction. Moderate diffuse heterogeneous irregular plaques in the descending aorta. Mild diffuse plaques in the ascending and arch of the aorta. Mild biatrial enlargement No intracardiac masses or thrombi. Normal left atrial appendage with a normal contractility. No similar previous studies are available for comparison Dr Reid Cagle MD FAC (Electronically Signed) Final Date: 30 January 2020 18:22 S
--- NOTE | 2020-01-30 18:31 | P.PN_ITS ---
Subjective Subjective: Interval history: Patient underwent transesophageal echocardiogram today. He was found to have moderate diffuse heterogeneous plaques in the descending aorta. Mild diffuse plaques were noted in the ascending and arch of the aorta. No intracardiac masses were noted. No intracardiac shunt. Medications: Reviewed: Yes Medication Review Details: Current Medications Acetaminophen (Tylenol) 650 mg PO Q6H PRN PRN Reason: MILD PAIN OR INCREASE TEMP Albuterol/Ipratropium (Duoneb) 3 ml INHALATION Q4H.RESPIRATORY FORMERLY [facility], [facility]–1983 Last Admin: 01/30/20 16:15 Dose: Not Given Documented by: Amlodipine Besylate (Norvasc) 10 mg PO DAILY [facility], [facility] Last Admin: 01/30/20 08:05 Dose: 10 mg Documented by: Aspirin (Aspirin Ec) 81 mg PO DAILY [facility], [facility]1983 Last Admin: 01/30/20 08:05 Dose: 81 mg Documented by: Atorvastatin Calcium (Lipitor) 40 mg PO BEDTIME [facility], [facility] Last Admin: 01/29/20 20:02 Dose: 40 mg Documented by: Atropine Sulfate (Isopto Atropine) 4 drop SUBLINGUAL Q2H PRN PRN Reason: SECRETIONS Clopidogrel Bisulfate (Plavix) 75 mg PO Q24H FOR[facility], [facility] Last Admin: 01/29/20 18:37 Dose: 75 mg Documented by: Heparin Sodium (Beef Lung) (Heparin) 5,000 unit SUBCUT Q12H [facility], [facility] Last Admin: 01/30/20 06:26 Dose: 5,000 unit Documented by: Hydralazine HCl (Apresoline) 5 mg IVP Q4H PRN PRN Reason: HYPERTENSION Last Admin: 01/26/20 05:30 Dose: 5 mg Documented by: Levofloxacin/Dextrose (Levaquin-D5w) 750 mg in 150 mls @ 100 mls/hr IV Q24H [facility], [facility]; Protocol Last Infusion: 01/30/20 00:57 Dose: Infused Documented by: Lorazepam (Ativan) 1 mg IVP Q8H PRN PRN Reason: Anxiety or agitation Last Admin: 01/26/20 13:57 Dose: 1 mg Documented by: Nicotine (Nicoderm 21 Mg Patch) 1 patch TRANSDERMA DAILY [facility], [facility] Last Admin: 01/30/20 08:06 Dose: 1 patch Documented by: Nitroglycerin (Nitro-Bid) 0.5 inch TOPICAL Q6H [facility] Last Admin: 01/30/20 12:00 Dose: 0.5 inch Documented by: Ondansetron HCl (Zofran) 4 mg IVP Q6H PRN PRN Reason: NAUSEA AND VOMITING Pantoprazole Sodium (Protonix) 40 mg PO DAILY [facility] Last Admin: 01/30/20 08:05 Dose: 40 mg Documented by: Prednisone (Prednisone) 40 mg PO DAILY [facility] Last Admin: 01/30/20 08:06 Dose: 40 mg Documented by: Tramadol HCl (Ultram) 50 mg PO Q4H PRN PRN Reason: MODERATE PAIN Vitals/I&O/Wt Last Vital Signs Temp 98.2 F 01/30/20 17:05 Pulse 90 01/30/20 17:57 Resp 18 01/30/20 17:57 BP 142/67 01/30/20 17:57 Pulse Ox 100 01/30/20 17:57 01/30/20 01/30/20 01/30/20 06:59 14:59 22:59 Intake Total 150 / 750 30 / 30 Output Total 0 / 0 Balance 150 / 750 30 / 30 Weight last 48 hrs Weight 114 lb 1.6 oz Weight 108 lb Physical Exam Narrative: EXAM NARRATIVE: GENERAL: The patient is alert and oriented times three. Not in any acute distress. HEENT: Mild pallor, no icterus or lymphadenopathy.Oral cavity: There are no mucous membrane lesions. NECK: Trachea appears to be central. No masses noted. No JVD or thyromegaly appreciated. RESPIRATORY: Chest is symmetrical. No intercostals muscle retraction or any accessory muscle activation. There is no chest wall tenderness. Breath sounds are heard bilaterally. No rales or rhonchi heard. No evidence of any consolidation. BREASTS: Deferred. HEART: The heart sounds are normal. No S3 or S4. Short systolic murmur in the mitral area. No diastolic murmurs.. No pericardial rub ABDOMEN: No vessel pulsations or distention. No tenderness. No organomegaly appreciated. Bowel sounds are normally heard. : Deferred. RECTAL: Deferred. LYMPHATIC: No lymphadenopathy noted in the neck . EXTREMITIES: 1+ edema both lower extremities. Dorsalis pedis and posterior tibial pulses are nonpalpable bilaterally. MUSCULOSKELETAL: No acute joint deformities or swelling SKIN: There are no significant rashes. Ecchymosis at the tip of the left big toe NEUROPSYCHIATRIC: No focal motor deficits Urinary Catheter Management^: Smith: Cath Placed During This Visit: yes Urethral Indwelling: Yes Reason for Continuing Indwelling Catheter: Other Urinary Catheter Date of Insertion: 01/20/20 Urinary Catheter Time of Insertion: 10:58 Data : 01/30/20 04:43 01/30/20 04:43 A&P Assessment and plan (1) Cerebrovascular accident, embolic: Possibility of intermittent atrial fibrillation causing the CVA is a consideration especially in view of the biatrial enlargement. For further evaluation of the arrhythmia, an event monitor would be appropriate. Status: Acute Qualifiers: Precerebral and cerebral artery: unspecified precerebral artery Qualified Code(s): I63.10 - Cerebral infarction due to embolism of unspecified precerebral artery (2) Acute respiratory failure with hypoxia and hypercapnia: She is currently extubated. Management as per the primary. Status: Acute (3) Severe peripheral arterial disease: Patient seems to be fairly asymptomatic at this time. Needs to be further evaluated Status: Acute (4) Accelerated hypertension: May need to optimize the antihypertensive medications. Status: Acute Additional A&P Information Patient may be discharged home with an event monitor. Based on the results of event monitor, further recommendations will be made. I may see him in the office in a month. Attestations Medical Necessity Statement*: Disposition as per the primary Coding Level of Care Code Acute Negative Notcher for [facility] Diagnoses Cerebrovascular accident, embolic I63.10 Precerebral and cerebral artery: unspecified precerebral artery Acute respiratory failure with hypoxia and hypercapnia J96.01; J96.02 Severe peripheral arterial disease I73.9 Accelerated hypertension I10
[2020-01-30] MEDS: clopidogrel 75 mg Tablet PO (18:45)
--- NOTE | 2020-01-30 20:54 | PM.PN ---
Subjective Subjective: Interval history: Today he is doing well. Denies any new symptoms. Denies any worsening, in fact feels his vision is a little bit better. Vitals/I&O/Wt Last Vital Signs Temp 97.5 F L 01/30/20 18:45 Pulse 81 01/30/20 20:03 Resp 16 01/30/20 19:57 BP 171/80 01/30/20 18:45 Pulse Ox 98 01/30/20 19:57 01/30/20 01/30/20 01/30/20 06:59 14:59 22:59 Intake Total 150 / 750 30 / 30 Output Total 0 / 0 450 / 450 Balance 150 / 750 30 / 30 -450 / -420 Weight last 48 hrs Weight 51.755 kg Weight 48.988 kg Physical Exam Const: COMMON NORMALS: no acute distress and alert ORIENTATION/CONSCIOUSNESS: Yes oriented to person and Yes oriented to time OTHER: Oriented to being in the [facility] and [place], although states the year is 194. He otherwise does have good insight into his condition, states he is here because of stroke and pneumonia. HENMT: COMMON NORMALS: oropharynx normal Neck/C-Spine: COMMON NORMALS: no JVD Resp: COMMON NORMALS: normal respiratory effort AUSCULTATION: wheezes (Mild wheeze on the left side) Cardio: COMMON NORMALS: no JVD, regular rhythm, S1 normal heart sound present, S2 normal heart sound present and No murmurs present (Cardio) RHYTHM: regular rhythm HEART SOUNDS: S1 normal heart sound present and S2 normal heart sound present GI: COMMON NORMALS: Normal to inspection, nondistended, normoactive bowel sounds present, Soft to palpation and non-tender PALPATION: Yes Soft to palpation Extremity: COMMON NORMALS: no joint enlargement and no pedal edema OTHER: Both feet appear pink, well perfused, warm, cannot palpate pulses. Bluish discoloration of L distal hallux. Less today. Neuro: COMMON NORMALS: moves all extremities SENSORIUM/ORIENTATION: Yes alert, Yes oriented to person and Yes oriented to time Skin: COMMON NORMALS: no rashes or lesions noted GENERAL SKIN EXAM: no rashes or lesions noted Urinary Catheter Management^: Smith: Cath Placed During This Visit: yes Urethral Indwelling: Yes Reason for Continuing Indwelling Catheter: Other Urinary Catheter Date of Insertion: 01/20/20 Urinary Catheter Time of Insertion: 10:58 Data : 01/30/20 04:43 01/30/20 04:43 A&P Assessment and plan (1) Peripheral vascular disease: Pending additional assessment by interventional cardiology, although options are limited for intervention definitely right now while he cannot receive anticoagulation, but to establish further diagnostic steps. Both his CVA and findings on additional evaluation, as well as PVD discussed with his sister Latosha Sanders and all questions answered to her satisfaction. Persistence of bluish disculoration of only the distal L hallux. Dopplerable but faint bilateral PT and DP pulses. Continues on ASA and statin. Concern for embolic disease superimposed on severe PAD. Would benefit from additional assessment. Concern that he probably may need to be anticoagulated in anticipation of any vascular procedure, although has petechial brain hemorrhages. RAJINDER 0.3 on L, 0.5 on R. He is aware of having blockages in his arteries in his legs. -Venous duplex negative for DVT bilaterally. -Arterial studies show total occlusion of the left iliac, femoral and popliteal artery with collateral filling of the posterior tibial and dorsalis pedis arteries; abnormal resting RAJINDER on the right suggestive of severe PAD, possible total occlusion of the distal SFA. 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 Discussed w neurology. Can't anticoagulate for at least a week with intracerebral hemorrhage. Added plavix. On ALEX arch without significant plaque. NTG and possibly pentoxifylline (unfortunately unavailable on formulary) could be tried for symptoms in the left left hallux. Status: Suspected (2) CVA (cerebral vascular accident): S/p ALEX today with some plaques noted in more distal aorta, however, arch reportedly appears in pretty good shape. Noted carotid stenosis as before on Doppler. No suggestion of septal defect with saline contrast. Would benefit from event monitor to be set up on discharge. Cont ASA, statin. MRI brain with multifocal CVA concerning for embolic etiology or watershed hypoperfusion. Carotid artery Doppler with 16 to 49% stenosis on the right side. No known atrial fibrillation, not seen on EKGs. Monitor on telemetry. Discussed with brother that overall unfortunately prognosis does not look good with a very severe vascular disease, multiple CVA without obvious etiology. At this time would also be high risk of bleeding in case needing anticoagulation due to instability on his feet, high fall risk. Also concern regarding petechial hemorrhage R parasaggital occipital lobe with localized edema. Would benefit from event recorder after discharge as well as follow-up with neurology, as well as cardiology due to severe vascular disease. Discussed with his brother also regarding poorly controlled hypertension, and brother states that this is been going on for a long time unfortunately. Unfortunately also he used to not take any medications for it. Definitely would benefit from optimization of this risk factor. Also needs to stop smoking. If no obvious cause still identified, consider also additional assessment by CTA or MRA. Can't anticoagulate for at least a week. Add plavix which we will. Neurology will be expecting him in the office for follow up. Discussed with his sister concern for possible development of vascular dementia as she is also noted some on and off memory issues which are somewhat new. Status: Acute (3) Acute respiratory failure with hypoxia and hypercapnia: Improving. Antibiotics narrowed down to Levaquin alone. Oral prednisone. He is doing well after extubation. On 2L NC. Denies shortness of breath, no significant cough. Reports that his breathing is comfortable. LLL PNA improgiving. Moraxella catarrhalis from sputum culture. Originally intubated in ER, extubated the day after, however, had to be reintubated again overnight, 01/20. Subsequently gradually improved. Extubated again 01/26. So far doing well. Pending ST evaluation. PT - very weak. Will need DC to SNF. Chronic heavy smoker per brother. Agreeable to nicotine patch. COVID-19, negative; off isolation precautions Bacterial antigens, MRSA, influenza screen, Legionella negative Status: Acute (4) Hypertensive urgency: Poorly controlled hypertension. Increase amlodipine dose to 10 mg. Given significant vascular disease, would benefit from optimization, although appears unfortunately reluctant to take medications in the past. Status: Resolved (5) Decreased responsiveness: Improved. Encephalopathy due to PNA. CVA. Repeat ammonia normal. Status: Acute (6) Acute kidney failure: Improved. BUN elevated. Monitor renal function. Status: Acute Qualifiers: Acute renal failure type: unspecified Qualified Code(s): N17.9 - Acute kidney failure, unspecified (7) Smoker: -2 PPD x > 30 yrs. Add nicotine patch. Status: Chronic (8) COPD (chronic obstructive pulmonary disease): No wheezing. Clear to auscultation. Change to PO steroids. Continue antibiotic. Breathing treatments. Status: Acute Qualifiers: COPD type: COPD with acute exacerbation Qualified Code(s): J44.1 - Chronic obstructive pulmonary disease with (acute) exacerbation (9) Elevated LFTs: Gradual improvement. Cirrhotic appearance of liver on CT. Negative hepatitis panel. Discussed also with his brother regarding concern for cirrhosis. In addition to history of alcohol abuse, brother also reports history of hepatitis B. Given his overall condition he would not be candidate for liver transplantation. Discussed with brother risk of progressive illness from cirrhosis as well as a number of complications and need for terminal clerk follow up with PCP who may also consider referral to hepatology. History of alcohol abuse, reportedly abstinent for the last 3 years. Would benefit from outpatient follow-up for liver cirrhosis. Ammonia level was normal on presentation. Discussed with his sister. Status: Acute (10) Chronic back pain: Status: Chronic Qualifiers: Back pain location: low back pain Back pain laterality: unspecified Sciatica presence: unspecified whether sciatica present Qualified Code(s): M54.5 - Low back pain; G89.29 - Other chronic pain Additional A&P Information Moderate protein calorie malnutrition: BMI-16 kg/m2. ST evaluation at this time. We will add protein shakes once he assessed to be able to safely swallow. Chronic EtOH abuse; negative alcohol screen, questionable if recent use though per brother patient has been abstinent x 3 yrs. Banana bag given in ED Thrombocytopenia; stable platelet count even with ASA and heparin; continue to monitor. Possibly related to liver cirrhosis. Attestations Medical Necessity Statement*: Continue admission for cyst management of multiple CVA, severe PAD, disposition arrangements. Coding Level of Care Code Acute [facility] for [facility] Diagnoses Peripheral vascular disease I73.9 CVA (cerebral vascular accident) I63.9 Acute respiratory failure with hypoxia and hypercapnia J96.01; J96.02 Hypertensive urgency I16.0 Decreased responsiveness R41.89 Acute kidney failure N17.9 Acute renal failure type: unspecified Smoker F17.200 COPD (chronic obstructive pulmonary disease) J44.1 COPD type: COPD with acute exacerbation Elevated LFTs R79.89 Chronic back pain M54.5; G89.29 Back pain location: low back pain Back pain laterality: unspecified Sciatica presence: unspecified whether sciatica present
[2020-01-30] MEDS: levofloxacin-dextrose 5 % 750 MG/150 ML PREMIX 100 MG IV (21:05)
[2020-01-30] MEDS: atorvastatin 40 mg Tablet PO (21:09)
[2020-01-30] MEDS: potassium chloride oral liq 20 mEq/15 mL UDC 40 MEQ PO (22:19)
[2020-01-31] VITALS (9 sets, daily range): BP systolic 145–160; BP diastolic 66–78; PULSE 72–79; RESP 16–20; TEMP 36.5–36.8; O2SAT 94–100
[2020-01-31] MEDS: ipratropium-albuterol 3 mL Neb INHALATION ×2 (04:20→07:35)
[2020-01-31] MEDS: nitroglycerin 1 gm/inch oint Pkt 0.5 INCH TOPICAL ×3 (06:02→11:36)
[2020-01-31] MEDS: heparin 5,000 unit/mL INJ 1 mL 5000 UNIT SUBCUT (06:02)
[2020-01-31 06:09] LABS: Basophils % 0.1 %; Eosinophils % 0.3 %; Hematocrit 44.1 % (42.0-52.0); Hemoglobin 13.6 g/dL (11.7-16.6); Lymphocytes # 1.4 10^3/uL (0.8-4.8); Lymphocytes % 12.4 %; Mean Corpuscular HGB Conc 30.8 g/dL (30.0-36.0); Mean Corpuscular Hemoglobin 27.5 pg (28.0-34.0); Mean Corpuscular Volume 89.3 fL (80-94); Mean Platelet Volume 11.8 fL (7.4-10.4); Monocytes # 0.8 10^3/uL (0.2-0.9); Neutrophils # 8.8 10^3/uL (1.8-7.7); Neutrophils % 79.7 %; Nucleated Red Blood Cells % 0 %; Platelet Count 115 10^3/cmm (130-400); Red Blood Count 4.94 10^6/uL (4.1-5.3); Red Cell Distribution Width 13.6 % (12.1-15.1); White Blood Count 11.1 10^3/uL (4.0-10.0)
[2020-01-31 06:26] LABS: Alkaline Phosphatase 43 IU/L (40-130); Anion Gap 13.4 (5-19); Blood Urea Nitrogen 17 mg/dL (8-23); Calcium 8.6 mg/dL (8.5-10.5); Carbon Dioxide 28 mmol/L (22-29); Chloride 100 mmol/L (98-107); Globulin 1.9 g/dL (1.3-4.6); Glomerular Filtration Rate 166.4 mL/min (90-130); Glucose 73 mg/dL (65-115); Magnesium 1.7 mg/dL (1.7-2.3); Osmolality Calculated 279 mOsm/kg (285-295); Potassium 4.4 mmol/L (3.5-5.1); Sodium 137 mmol/L (136-145); Total Protein 4.9 g/dL (6.6-8.7)
[2020-01-31 06:30] LABS: Alanine Aminotransferase 54 U/L (0-41); Aspartate Amino Transferase 68 U/L (0-40)
[2020-01-31 07:10] LABS: Slide Review Slide Review Perform
--- NOTE | 2020-01-31 08:24 | PM.CONSULT ---
Providers/Reason For Consult Consulting Physican/Specialty*: Cardiovascular diseases Reason for Consult*: Peripheral arterial disease Attending Physician: Librado Chung Primary Care Provider: Adalid Frost DO History of Present Illness History of Present Illness Nasir Lepe is a 64 year old male who was admitted to the hospital approximately 10 days ago on the with a change in his mental status and hypoxia. Apparently his brother was unable to contact him one morning and went to check on him and found him unresponsive in his bed. He was brought to the emergency room where he was found to be hypoxic and hypercarbic. He was intubated because of unresponsiveness. His blood pressure was high. 220/100. His potassium was 5.9, creatinine 1.3, CBC was normal, BUN was 29, AST 140, ALT 92. His troponin and tox screens were negative. Head CT showed multi-small vessel ischemic disease. Chest x-ray showed COPD. Abdomen and pelvis CT shows cirrhosis of the liver. He has carotid disease with questionable left subclavian stenosis. He has a right internal carotid artery stenosis of 16 to 49%. His echo was normal. Venous duplex was negative. Lower extremity arterial duplex shows total occlusion of the left iliac, femoral and popliteal arteries. He also has what is likely a total right superficial femoral artery occlusion. His RAJINDER on the left is 0.3 and 0.5 on the right. The next day he was extubated. He had difficulty following commands, had garbled speech and a stroke was suspected. Because he could not protect his airway and he was still neurologically not intact with respiratory insufficiency he was reintubated. He remained intubated until the when he was extubated a second time. At that time MRI of his head was obtained which showed multiple foci of acute ischemic areas. There were small petechial hemorrhages and chronic lacunar infarcts. Over time his creatinine and BUN normalized. His glomerular filtration rate is 166. His AST has come down to 68 and ALT is 54. He was seen on the by Dr. Cagle. A ALEX yesterday revealed a normal ejection fraction with LVH, plaque in the aorta and no valvular heart disease and no obvious evidence of a focus for embolic phenomena. Patient has been transferred to the second floor. He is awake alert and seems reasonably neurologically intact. This morning he is working with physical therapy. The thought among the internal medicine staff is that he should not have anticoagulation because of the petechial hemorrhages in the brain. He does not complain of any pain in his legs now. Previously the neon sign mechanic was able to Doppler some pulses in the left leg. He does not have any other complaints this morning. He has other underlying medical problems which have complicated this hospital stay. Apparently previously has been a heavy drinker and has some element of alcoholic cirrhosis. He has not sought out any healthcare for approximately 30 years. He is a lifelong smoker with COPD. Review of Systems General: Reports: ROS unobtainable due to medical condition Meds/Allergies Home Medications and Allergies Home Medications Medication Instructions Recorded Confirmed Last Taken Type No Known Home Medications 01/20/20 01/20/20 Unknown History Allergies Allergy/AdvReac Type Severity Reaction Status Date / Time No Known Allergies Allergy Verified 01/20/20 09:41 Current Medications Current Medications Generic Name Dose Route Start Last Admin Trade Name Freq PRN Reason Stop Dose Admin Albuterol/Ipratropium 3 ml 01/23/20 00:00 01/31/20 07:35 Duoneb INHALATION 3 ml Q4H.RESPIRATORY JOSELINE Administration Amlodipine Besylate 10 mg 01/30/20 09:00 01/30/20 08:05 Norvasc PO 10 mg DAILY JOSELINE Administration Aspirin 81 mg 01/28/20 09:00 01/30/20 08:05 Aspirin Ec PO 81 mg DAILY JOSELINE Administration Atorvastatin Calcium 40 mg 01/27/20 21:00 01/30/20 21:09 Lipitor PO 40 mg BEDTIME JOSELINE Administration Clopidogrel Bisulfate 75 mg 01/29/20 18:00 01/30/20 18:45 Plavix PO 75 mg Q24H JOSELINE Administration Heparin Sodium (Beef Lung) 5,000 unit 01/20/20 14:00 01/31/20 06:02 Heparin SUBCUT 5,000 unit Q12H JOSELINE Administration Hydralazine HCl 5 mg 01/20/20 20:47 01/26/20 05:30 Apresoline IVP 5 mg Q4H PRN Administration HYPERTENSION Levofloxacin/Dextrose 750 mg in 150 mls @ 100 mls/hr 01/21/20 12:00 01/30/20 21:05 Levaquin-D5w IV 100 mls/hr Q24H JOSELINE Administration Protocol Lorazepam 1 mg 01/21/20 19:20 01/26/20 13:57 Ativan IVP 1 mg Q8H PRN Administration Anxiety or agitation Nicotine 1 patch 01/28/20 09:00 01/30/20 08:06 Nicoderm 21 Mg Patch TRANSDERMA 1 patch DAILY JOSELINE Administration Nitroglycerin 0.5 inch 01/29/20 17:45 01/31/20 06:02 Nitro-Bid TOPICAL 0.5 inch Q6H JOSELINE Administration Pantoprazole Sodium 40 mg 01/28/20 09:00 01/30/20 08:05 Protonix PO 40 mg DAILY JOSELINE Administration Prednisone 40 mg 01/30/20 09:00 01/30/20 08:06 Prednisone PO 40 mg DAILY JOSELINE Administration PFSH Acute PFSH: Medical History Accelerated hypertension Alcohol abuse Cerebrovascular accident, embolic Chronic back pain COPD (chronic obstructive pulmonary disease) Severe peripheral arterial disease Smoker Surgical History History of back surgery Family History Sister Diabetes Denies family history of CAD (coronary artery disease) Cancer Social History Smoking and tobacco status: current every day smoker cigarettes Packs smoked per day: 2 Years cigarettes smoked: 30 Alcohol intake: former Former alcohol use details: abstinent x 3 yrs Substance/Drug Use: never Lives independently: Yes Housing: House Marital status: Single Vitals/I&O/Wt Last Vital Signs Temp 97.7 F 01/31/20 07:30 Pulse 77 01/31/20 07:40 Resp 17 01/31/20 07:35 BP 158/70 01/31/20 07:30 Pulse Ox 94 01/31/20 07:35 01/30/20 01/31/20 01/31/20 22:59 06:59 14:59 Intake Total 120 / 150 Output Total 450 / 450 400 / 850 Balance -450 / -420 -280 / -700 Weight last 48 hrs Weight 110 lb 12.8 oz Weight 114 lb 1.6 oz Physical Exam Narrative: EXAM NARRATIVE: GENERAL: In general he is awake and alert sitting on the side of the bed HEENT: Exam within normal limits. NECK: Supple without jugular vein distention. The carotid upstroke is normal without bruits. BACK: Exam normal. LUNGS: Clear. HEART: Regular rate and rhythm. ABDOMEN: Benign without organomegaly or tenderness. EXTREMITIES: No edema. No palpable pulses in the feet NEUROLOGIC: Exam normal. SKIN: Unremarkable. Urinary Catheter Management^: Smith: Cath Placed During This Visit: yes Urethral Indwelling: Yes Reason for Continuing Indwelling Catheter: Other Urinary Catheter Date of Insertion: 01/20/20 Urinary Catheter Time of Insertion: 10:58 A&P Assessment and plan (1) Accelerated hypertension: Status: Acute (2) Severe peripheral arterial disease: Status: Acute (3) CVA (cerebral vascular accident): Status: Acute (4) Alcohol abuse: Status: Acute (5) Elevated LFTs: Status: Acute (6) Acute kidney failure: Status: Acute Qualifiers: Acute renal failure type: unspecified Qualified Code(s): N17.9 - Acute kidney failure, unspecified (7) Decreased responsiveness: Status: Acute (8) Acute respiratory failure with hypoxia and hypercapnia: Status: Acute (9) Chronic back pain: Status: Chronic Qualifiers: Back pain location: low back pain Back pain laterality: unspecified Sciatica presence: unspecified whether sciatica present Qualified Code(s): M54.5 - Low back pain; G89.29 - Other chronic pain (10) Smoker: Status: Chronic (11) COPD (chronic obstructive pulmonary disease): Status: Acute Qualifiers: COPD type: COPD with acute exacerbation Qualified Code(s): J44.1 - Chronic obstructive pulmonary disease with (acute) exacerbation Additional A&P Information He will need evaluation of his lower extremities with angiography at some point in the future. It is not an emergency and should not be done at this time. With the petechial hemorrhages in his brain it would be too risky as any type of angiography or intervention will likely require anticoagulation with heparin. I would recommend sending him to the retirement and seeing him as an outpatient. Dr. Cagle will see him in a couple weeks and then recommend angiography at the appropriate time. The best way to approach this would be angiography from the right radial artery. The other option would be to enter on the right side but intervention on the left would be difficult if his left common iliac artery is completely occluded at the origin. Given the appearance of the Doppler examination it would be unlikely for 1 to be able to enter on the left if the entire artery is occluded from the iliac to the popliteal. The other option would be to do a CT angiogram but that would likely only confirm what we already suspect. If his anatomy is as it is suggested by Doppler interventional treatment on the left will be unlikely. In the meantime he should go home on aspirin and Plavix. 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 New History Comprehensive Exam Comprehensive Medical Decision Making High Complexity Diagnoses Accelerated hypertension I10 Severe peripheral arterial disease I73.9 CVA (cerebral vascular accident) I63.9 Alcohol abuse F10.10 Elevated LFTs R79.89 Acute kidney failure N17.9 Acute renal failure type: unspecified Decreased responsiveness R41.89 Acute respiratory failure with hypoxia and hypercapnia J96.01; J96.02 Chronic back pain M54.5; G89.29 Back pain location: low back pain Back pain laterality: unspecified Sciatica presence: unspecified whether sciatica present Smoker F17.200 COPD (chronic obstructive pulmonary disease) J44.1 COPD type: COPD with acute exacerbation
[2020-01-31] MEDS: amlodipine 10 mg Tablet PO (08:50)
[2020-01-31] MEDS: predniSONE 20 mg Tablet 40 MG PO (08:50)
[2020-01-31] MEDS: nicotine 21 mg Patch 1 PATCH TRANSDERMA (08:50)
[2020-01-31] MEDS: pantoprazole DR 40 mg Tablet PO (08:50)
[2020-01-31] MEDS: aspirin 81 mg EC Tablet PO (08:50)
--- NOTE | 2020-01-31 10:42 | PC.CHAP ---
Pastoral Care Encounter/Spiritual Assessment Type of Contact [] Declined contamination consultant visit [] Patient/Family/Request visit [] Outpatient visit [] Follow-up visit [] Physician referral [] Code/Alert [x] Routine visit [] Staff referral [] Actively dying [] Patient sleeping [] Family support [] [] Out of room [] Palliative care [] [] Receiving care in room [] Pre-surgical visit [] Trauma [] Long length of stay [] ICU visit [] Other: Relational/Emotional Strength [x] Patient feels connected with others/family/visitors/staff [] Distress [] Loneliness/isolation [] Abandonment Spirituality of Patient [x] Person of Sumaya [] Attends Shinto of their Sumaya [x] Believes in Prayer [] Reads Bible or Amish materials [] There are Spiritual issues to be addressed Trousseau Consultant Interventions [x] Prayer [x] Active listening [x] Non-anxious presence [x] Spiritual/emotional support [] Crisis/trauma care [] Spiritual counseling [] Bereavement support [] Provided bereavement packet [] Provided Bible/devotional materials [] Provided toy/stuffed animal, coloring book to patient or family member [] Provided Communion [] Anointing/[place] [] Salvation [x] Completed spiritual assessment [] Other: Impact on Illness or Injury [] Angry [] Fearful [] Anxious [] Often cries [] Exhaustion [] Unable to work [] Unable to attend uatsdin [] Unable to walk/stand [] Unable to read [] Unable to drive [] Unable to eat/drink [] Unable to sleep [] Unable to be with family [] Patient intubated [] Other: Summary Time 10 minutes
--- NOTE | 2020-01-31 11:44 | PC.SOCIAL ---
IMM Update Pg. 2 of IMM given and explained to patient who verbalized understanding. Copy in chart updated.
--- NOTE | 2020-01-31 12:41 | PM.DCS ---
Discharge Providers Date of Admission: 01/20/20 11:29 Date of Discharge: January 31, 2020 Attending Provider at Admission: Telma Mccord MD Attending Provider at Discharge: Librado Chung Primary Care Provider: Adalid Frost DO Diagnoses at Discharge Discharge Diagnosis (1) Severe peripheral arterial disease: Status: Acute (2) CVA (cerebral vascular accident): Status: Acute (3) Accelerated hypertension: Status: Acute (4) Alcohol abuse: Status: Acute (5) Elevated LFTs: Status: Acute (6) Acute kidney failure: Status: Acute Qualifiers: Acute renal failure type: unspecified Qualified Code(s): N17.9 - Acute kidney failure, unspecified (7) Decreased responsiveness: Status: Acute (8) Acute respiratory failure with hypoxia and hypercapnia: Status: Acute (9) Chronic back pain: Status: Chronic Qualifiers: Back pain laterality: unspecified Back pain location: low back pain Sciatica presence: unspecified whether sciatica present Qualified Code(s): M54.5 - Low back pain; G89.29 - Other chronic pain (10) Smoker: Status: Chronic (11) COPD (chronic obstructive pulmonary disease): Status: Acute Qualifiers: COPD type: COPD with acute exacerbation Qualified Code(s): J44.1 - Chronic obstructive pulmonary disease with (acute) exacerbation (12) Liver cirrhosis: Status: Acute Reason for Visit Reason for Visit: [facility] Hospital Course Hospital Course: Pleasant 64-year-old gentleman with history of COPD, current smoker, with history of alcohol abuse but abstinent for the past 3 years, was admitted with altered mental status, respiratory failure, requiring intubation, was treated for pneumonia, COPD exacerbation, also with acute kidney injury, hypertensive urgency on presentation, with noted elevated liver parameters with appearance of cirrhosis without past history on CT abdomen and pelvis. He has known severe peripheral artery disease as well, and with recent reported fall per family, as well as difficulties walking, claudication, was also noted to have bluish discoloration of the left hallux. He was extubated day after admission, however, did not do well and had to be reintubated, but subsequently with IV antibiotic treatment, steroids, breathing treatments, pulmonary toilet is Rester condition gradually improved. He was having problems with decreased responsiveness, and with noted multiple small infarcts noted on initial CT, encephalopathy was thought to be multifactorial secondary to acute medical condition with respiratory failure and infection, as well as related to multiple CVA. With gradual improvement in respiratory status but also mental status, was eventually successfully extubated for the second time on 01/26, and since then has remained stable on nasal cannula, currently saturating in high 90s on just 2 L. His CVA was additionally evaluated by MRI, with finding of multifocal small strokes in multiple vascular distributions, as well as petechial hemorrhages noted in the periventricular right occipital lobe. He will need to follow-up with neurology in office, and is expected there, but in the meantime recommendation was to continue treatment with aspirin and add Plavix. He is not a candidate for anticoagulation at this time. So far we have not seen atrial fibrillation on the monitor. He would benefit from event monitoring after discharge and this is requested for him and was discussed and will be followed up by Dr. Cagle. Given multifocal CVA, as well as blue toe and the left leg, concern was for embolic etiology of these multiple conditions, and he underwent assessment by ALEX, which did not show very significant plaque and aortic arch, and without any evidence of septal defect. Some plaque was noted in more distal aorta. He is also noted to have 16 to 49% stenosis in right carotid artery. Peripheral arterial duplex with RAJINDER 0.3 on the left side, 0.5 on the right side, with significant vascular occlusions, including iliac artery, SFA and popliteal artery on the left side, with reconstitution of PT and DP distally. Blue discoloration of his left toe without any expansion, and the question is whether in fact this is truly embolic, or perhaps from some trauma following his fall. He denies any pain there. Per patient this is actually improved. He will require peripheral angiography for additional assessment and possibly intervention for the severe symptomatic PAD, however, at this time no intervention could be undertaken due to risk of bleeding, inability to tolerate anticoagulation, for at least a week. After assessment by neurology in office, recommendation by interventional cardiology is for him to follow-up with Dr. Cagle, who may refer him for additional angiography as deemed appropriate after about a week or 2 when it is safe from the perspective of his intracerebral hemorrhages. In addition for all these conditions he needs to stop smoking, and so far appears has been motivated, and well with a nicotine patch while in the hospital. His blood pressure is noted poorly controlled as well, and he has been started on amlodipine. Please help him optimize this, as well as help with quitting smoking. Due to multiple CVA his mobility has been quite effective, with loss of coordination, as well as left-sided visual defects, in addition to loss of stamina and muscle mass, with already moderate protein calorie malnutrition. Due to all this he would benefit from rehabilitation prior to return home. With noted likely progression to cirrhosis on CT abdomen pelvis, he otherwise has had ammonia levels normal, and likely not contributing to his mental status changes. His cirrhosis requires additional follow-up and assessment as otherwise recommended. His long-term prognosis is guarded, due to old underlying issues, and unfortunately may not be good. Please see obtained imaging studies, and progress notes for full details of the hospitalization. His condition, as well as treatment plan were discussed with him, both his siblings, as well as the subspecialists will be involved in his care, including urology, petrophysical engineer, and vascular surgeon to whom he may be referred as needed. Patient and family verbalized understanding and agreement with plan, and all questions were answered to their satisfaction. He himself reports he is feeling much better, and feels ready to continue rehabilitation over at SNF. Physical Exam Const: COMMON NORMALS: no acute distress and alert ORIENTATION/CONSCIOUSNESS: Yes oriented to person and Yes oriented to time OTHER: Oriented to being in the [facility] [place] [facility] [place], although states the year is 194. He otherwise does have good insight into his condition, states he is here because of stroke and pneumonia. HENMT: COMMON NORMALS: oropharynx normal Neck/C-Spine: COMMON NORMALS: no JVD Resp: COMMON NORMALS: normal respiratory effort AUSCULTATION: wheezes (Mild wheeze on the left side) Cardio: COMMON NORMALS: no JVD, regular rhythm, S1 normal heart sound present, S2 normal heart sound present and No murmurs present (Cardio) RHYTHM: regular rhythm HEART SOUNDS: S1 normal heart sound present and S2 normal heart sound present GI: COMMON NORMALS: Normal to inspection, nondistended, normoactive bowel sounds present, Soft to palpation and non-tender PALPATION: Yes Soft to palpation Extremity: COMMON NORMALS: no joint enlargement and no pedal edema OTHER: Both feet appear pink, well perfused, warm, cannot palpate pulses. Bluish discoloration of L distal hallux. Less today. Neuro: COMMON NORMALS: moves all extremities SENSORIUM/ORIENTATION: Yes alert, Yes oriented to person and Yes oriented to time Skin: COMMON NORMALS: no rashes or lesions noted GENERAL SKIN EXAM: no rashes or lesions noted Urinary Catheter Management^: Smith: Cath Placed During This Visit: yes, but has since been removed by the nurse Urethral Indwelling: Yes Reason for Continuing Indwelling Catheter: Other Urinary Catheter Date of Insertion: 01/20/20 Urinary Catheter Time of Insertion: 10:58 Date Urinary Catheter Removed: 01/31/20 Time Urinary Catheter Discontinued: 09:59 Discharge Data Data Completed and Pending: Completed Studies During Hospitalization Category Date Time Status CT abdomen pelvis wo con [id number] Stat Cat Scan 01/20/20 11:[address] head wo con* 7 [id number] Stat Cat Scan 01/20/20 09:00 Completed XR chest 1V leeann ble [id number] Routine Exams 01/22/20 01:40 Completed XR chest 1V leeann ble [id number] Routine Exams 01/23/20 06:00 Completed XR chest 1V leeann ble [id number] Routine Exams 01/24/20 06:00 Completed XR chest 1V leeann ble [id number] Routine Exams 01/25/20 06:00 Completed XR chest 1V leeann ble [id number] Routine Exams 01/27/20 06:00 Completed XR chest 1V leeann ble [id number] Stat Exams 01/20/20 11:45 Completed XR chest 1V leeann ble [id number] Stat Exams 01/21/20 22:52 Completed MR head wo/w con [id number] Routine MRI 01/28/20 14:30 [place] [id number] Rout ine Ultrasound 01/22/20 14:17 Completed CV carotid duplex BI* [id number] Routine Ultrasound 01/22/20 10:04 Completed CV echo complete* [id number] Routine Ultrasound 01/22/20 13:35 Completed CV echo transesop hageal [id number] Routi ne Ultrasound 01/30/20 17:30 [place] [id number] Routin e Ultrasound 01/22/20 14:17 Completed Labs from last 24 hours 01/31/20 01/31/20 05:05 05:05 WBC 11.1 H RBC 4.94 Hgb 13.6 Hct 44.1 MCV 89.3 MCH 27.5 L MCHC 30.8 RDW 13.6 Plt Count 115 L MPV 11.8 H Neut % (Auto) 79.7 Lymph % (Auto) 12.4 [place] % (Auto) 7.0 Eos % (Auto) 0.3 Baso % (Auto) 0.1 Neut # (Auto) 8.8 H Lymph # (Auto) 1.4 [place] # (Auto) 0.8 Eos # (Auto) 0.0 Baso # (Auto) 0.0 Nucleated RBC % (a uto) 0 Nucleated RBCs # 0.0 Sodium 137 Potassium 4.4 Chloride 100 Carbon Dioxide 28 Anion Gap 13.4 BUN 17 Creatinine 0.5 L GFR Calculation 166.4 H Glucose 73 Calculated Osmolal ity 279 L Calcium 8.6 Magnesium 1.7 Total Bilirubin 1.0 AST 68 H ALT 54 H Alkaline Phosphata se 43 Total Protein 4.9 L Albumin 3.0 L Globulin 1.9 Vitals: Last Vital Signs Temp 98.0 F 01/31/20 11:31 Pulse 72 01/31/20 11:31 Resp 18 01/31/20 11:31 BP 160/78 01/31/20 11:31 Pulse Ox 98 01/31/20 11:31 Discharge Plan Discharge Patient Disposition: er SNF Condition: Stable Prescriptions: New tramadol 50 mg Tablet 50 mg PO TID PRN (Reason: Moderate Pain) Qty: 9 RF: 0 ipratropium-albuterol 0.5 mg-3 mg(2.5 mg base)/3 mL Solution For Nebulization 3 ml inhalation Q4H.RESPIRATORY PRN (Reason: Shortness Of Breath Or Wheezing) Qty: 90 RF: 0 amlodipine 10 mg Tablet 10 mg PO DAILY Qty: 30 RF: 0 clopidogrel 75 mg Tablet 75 mg PO Q24H Qty: 30 RF: 0 albuterol sulfate 90 mcg/actuation HFA aerosol inhaler 2 inh INHALATION Q6H PRN (Reason: shortness of breath or wheezing) Qty: 8.5 RF: 0 Spiriva Respimat 1.25 mcg/actuation mist 2 inh INHALATION DAILY Qty: 4 RF: 0 aspirin 81 mg Tablet,Delayed Release (Dr/Ec) 81 mg PO DAILY Qty: 30 RF: 0 pantoprazole 40 mg Tablet,Delayed Release (Dr/Ec) 40 mg PO DAILY Qty: 30 RF: 0 atorvastatin 40 mg Tablet 40 mg PO BEDTIME Qty: 30 RF: 0 nicotine 21 mg/24 hr Patch 24 Hour 1 patch transdermal DAILY Qty: 30 RF: 0 prednisone 20 mg Tablet 40 mg PO DAILY Qty: 21 RF: 0 No Action No Known Home Medications RF: 0 Other Ambulatory Orders: CA cardiac event monitor (Routine) Timeframe: 1 Day Facility: [facility] - Location: Cardiac Diagnostic Laboratory Ordered By: Librado Chung Referrals: NH, PCP [Other] - 4-7 days (CVA, PAD, cirrhosis, COPD, smoking, other problems) Lian Gamble MD [Physician] - 1 week (CVA) Reid Cagle MD [Physician] - 2 weeks Discharge Diet: Cardiac and Soft Mechanical Discharge Activity: Increase activity as tolerated, As per PT/OT instructions and Oxygen as instructed Patient Instructions: Transesophageal Echocardiogram (DC) Activity Restrictions/Additional Instructions: Oxygen as needed 2L NC. Goal saturation 92%. Wean off as tolerating. Maintain strict fall precautions. Aspiration precautions. PT, OT, ST after stroke. Please reassess at least daily for any neurovascular changes in lower extremities, with noted blue discoloration of distal left hallux with severe underlying peripheral arterial disease. His pulses at PT and DP have been faintly dopplerable but not palpable in the hospital. Discharge Attestations Time Spent in Discharge Care*: greater than 30 min Quality Metrics Clinical Quality Measures During this hospital stay, did patient experience: Stroke Contraindication to Antithrombotic: Antithrombotic prescribed Contraindication to Anticoagulation: Medical contraindication Contraindication to Statin: Statin prescribed Coding Level of Care Code Acute Corporate Relations Manager for g Fwd Exam Comprehensive Diagnoses Severe peripheral arterial disease I73.9 CVA (cerebral vascular accident) I63.9 Accelerated hypertension I10 Alcohol abuse F10.10 Elevated LFTs R79.89 Acute kidney failure N17.9 Acute renal failure type: unspecified Decreased responsiveness R41.89 Acute respiratory failure with hypoxia and hypercapnia J96.01; J96.02 Chronic back pain M54.5; G89.29 Back pain laterality: unspecified Back pain location: low back pain Sciatica presence: unspecified whether sciatica present Smoker F17.200 COPD (chronic obstructive pulmonary disease) J44.1 COPD type: COPD with acute exacerbation Liver cirrhosis K74.60
--- NOTE | 2020-01-31 14:47 | PC.NURSE ---
Called report to Renée SEVERINO at [place]. IV removed intact, and patient tolerated well. Patient transported via wheelchair with portable oxygen to Facility with transport team [facility].
== END 2020-01-31 14:49 | disposition skilled nursing facility (03) | DRG 207 ==
LOC: ER 11:56 → ICU 12:05 → MEDSURG 01-28 11:21
PROVIDERS: Family Medicine; Internal Medicine; Internal Medicine Cardiovascular Disease; Admitting Provider Family Medicine; PCP Family Medicine; Visit Provider Internal Medicine
PROC: B24BZZ4 Ultrasonography of Heart with Aorta, Transesophageal (ICD-10-PCS; CPT 93312; principal; 2020-01-30 18:00)
DX: J96.01 Acute respiratory failure with hypoxia (principal); I63.10 Cerebral infarction due to embolism of unspecified precerebral artery; J18.9 Pneumonia, unspecified organism; N17.9 Acute kidney failure, unspecified; J44.1 Chronic obstructive pulmonary disease with (acute) exacerbation; J98.11 Atelectasis; J90 Pleural effusion, not elsewhere classified; E44.0 Moderate protein-calorie malnutrition; Z68.1 Body mass index [BMI] 19.9 or less, adult; J44.0 Chronic obstructive pulmonary disease with (acute) lower respiratory infection; G89.29 Other chronic pain; I10 Essential (primary) hypertension; I73.9 Peripheral vascular disease, unspecified; F17.210 Nicotine dependence, cigarettes, uncomplicated; J96.02 Acute respiratory failure with hypercapnia; M54.5 Low back pain; F10.21 Alcohol dependence, in remission; I16.0 Hypertensive urgency; Z79.82 Long term (current) use of aspirin; K74.60 Unspecified cirrhosis of liver; I65.21 Occlusion and stenosis of right carotid artery; Z79.02 Long term (current) use of antithrombotics/antiplatelets; Z11.59 Encounter for screening for other viral diseases
CPT/HCPCS: 12345; 36415; 36600; 51702; 70450; 70553; 71045; 74176; 80053; 80061; 80074; 80202; 80306; 80307; 81001; 82140; 82803; 83036; 83605; 83735; 84132; 84443; 84484; 85025; 85610; 85730; 86403; 87040; 87070; 87205; 87449; 87635; 87641; 87804; 92507; 92523; 92526; 92610; 93005; 93306; 93312; 93320; 93325; 93880; 93925; 93970; 94002; 94003; 94640; 94660; 94799; 96372; 96375; 97110; 97116; 97161; 97166; 97530; 97535; 99284; A9579; C9113; J0330; J0360; J0610; J1644; J1940; J1956; J2060; J2250; J2543; J2704; J2920; J2930; J3010; J3370; J3411; J3490; J7030; J7040; J7050; J7512

== ENCOUNTER → 2020-02-07 11:33 | Outpatient (BNVA) | payer MEDICARE, OTHER, SELFPAY | PROVIDERS: PCP Internal Medicine; Referring Provider Internal Medicine; Visit Provider Specialist | DX: I63.9 Cerebral infarction, unspecified (principal) | CPT/HCPCS: 99205 ==